=== PATIENT | female | born 1970 | race Caucasian/White ===

== ENCOUNTER 2019-02-16 09:14 | Day surgery (SDC) | payer OTHER ==
[~2019-02-16 09:14] MED LIST: DEXAMETHASONE SOD PHOSPHATE 10 MG/ML 1 ML VIAL IV ONE; HEPARIN SODIUM,PORCINE 5,000 UNIT/ML 1 ML VIAL SQ ONE; LIDOCAINE 1% 20 ML VIAL (10MG/ML) FOR IV START INTRADERMA PRN; ONDANSETRON 4 MG/2 ML VIAL IVP ONE; Pre Op ABX Message 1 EACH MISC MISCELLANE ONE; SCOPOLAMINE 1.5MG/72HR PATCH TRANSDERM ONE; fentaNYL (PF) 50 MCG/ML 2 ML AMP IV PRN
[2019-02-16 09:41] VITALS: RESP 16; TEMP 97.2
[2019-02-16] MEDS: LACTATED RINGERS 1,000 ML IV SCH ×2 (09:55→10:29)
--- NOTE | 2019-02-16 10:08 | P.GSHP ---
History of Present Illness H&P Date: 02/16/19 Chief Complaint: Right groin skin lesion This a 48-year-old female has developed a 5 cm ulcerated, fungating right groin skin lesion which appears to have the appearance of a squamous cell carcinoma. Patient rents today for excision. Patient states the mass is grown over the last 3 months. Past Medical History Past Medical History: GERD/Reflux, Osteoarthritis (OA) Additional Past Medical History / Comment(s): IBS, HTN-NO LONGER MEDICATED PER DR. DALAL. INTERSTITIAL CYSTITIS. HIATAL HERNIA. History of Any Multi-Drug Resistant Organisms: None Reported Past Surgical History: Appendectomy, Hysterectomy, Tonsillectomy, Tubal Ligation Additional Past Surgical History / Comment(s): Cystoscopy with Hydrodistension, LYMPH NODES REMOVED RT SIDE NECK Past Anesthesia/Blood Transfusion Reactions: Motion Sickness, Postoperative Nausea & Vomiting (PONV) Additional Past Anesthesia/Blood Transfusion Reaction / Comment(s): ITCHY FROM SOME MEDS, BENADRYL WORKS. Past Psychological History: No Psychological Hx Reported Smoking Status: Former smoker Past Alcohol Use History: Rare Additional Past Alcohol Use History / Comment(s): QUIT SMOKING IN 2015, SMOKED FOR 20 YRS @ 1PPD. Past Drug Use History: Marijuana Additional Drug Use History / Comment(s): CURRENTLY USES MARIJUANA. - Past Family History Mother Family Medical History: No Reported History Medications and Allergies Home Medications Medication Instructions Recorded Confirmed Type Oxzjzfk-Hhzx-Vslo [id number] 1 - 2 tab PO Q6H PRN 02/13/19 02/13/19 History [Excedrin] diphenhydrAMINE [Benadryl] 25 mg PO DAILY PRN 02/13/19 02/16/19 History Allergies Allergy/AdvReac Type Severity Reaction Status Date / Time latex Allergy Rash/Hives Verified 02/16/19 09:32 sulfamethoxazole Allergy Rash/Hives Verified 02/16/19 09:32 [From Bactrim] trimethoprim [From Bactrim] Allergy Rash/Hives Verified 02/16/19 09:32 hydrocodone AdvReac Itching Verified 02/16/19 09:32 Surgical - Exam Vital Signs Temp Pulse Resp BP Pulse Ox 97.2 F L 78 16 120/58 98 02/16/19 09:34 02/16/19 09:34 02/16/19 09:34 02/16/19 09:34 02/16/19 09:34 - General well developed, well nourished, no distress - Eyes PERRL - ENT normal pinna - Respiratory normal expansion - Cardiovascular Rhythm: regular - Abdomen Abdomen: soft, non tender - Integumentary 5 cm right groin skin lesion of the lateral aspect of her Pfannenstiel incision. The mass is fungating and inflamed. It has appearance of a squamous cell carcinoma. Assessment and Plan Plan: Right groin skin lesion. We'll perform excision.
[2019-02-16] MEDS ORDERED: fentaNYL (PF) 50 MCG/ML 2 ML AMP ONE (10:25)
[2019-02-16] MEDS ORDERED: MIDAZOLAM 2 MG/2 ML VIAL ONE (10:25)
[2019-02-16] MEDS ORDERED: PROPOFOL 10 MG/ML 20 ML VIAL IV ONE (10:25)
[2019-02-16] MEDS ORDERED: BUPIVACAIN-EPI 0.5%-1:200,000 30 ML VIAL SQ ONE (10:51)
--- NOTE | 2019-02-16 11:20 | P.OP ---
Date of Procedure: 02/16/19 Preoperative Diagnosis: Right groin skin lesion Postoperative Diagnosis: Right groin skin lesion Procedure(s) Performed: Excision of right groin skin lesion Anesthesia: MAC Surgeon: Deven Munson Estimated Blood Loss (ml): 5 Pathology: other (Right groin skin lesion) Condition: stable Disposition: PACU Description of Procedure: The patient's placed on the operative table in the supine position. She received IV sedation. The right groin skin lesion measured approximately 5 cm diameter. The area was anesthetized 1% local Xylocaine. An elliptical skin incision was made around the skin lesion. Clear margin was maintained. His left cautery the subcutaneous tissue divided. The skin was then closed in 2 layers using 3-0 Monocryl and 3-0 Vicryl suture. Dermabond dressings was applied. Patient top she will was sent to recovery room stable condition.
[2019-02-16 11:50] VITALS: BP 105/58; PULSE 55
== END 2019-02-16 12:00 | disposition home or self-care (01) ==
LOC: OR 09:14
PROVIDERS: ATTEND Surgery
DX: C44.529 Squamous cell carcinoma of skin of other part of trunk (principal); K21.9 Gastro-esophageal reflux disease without esophagitis; K44.9 Diaphragmatic hernia without obstruction or gangrene; M19.90 Unspecified osteoarthritis, unspecified site; Z87.891 Personal history of nicotine dependence; Z88.1 Allergy status to other antibiotic agents; Z88.2 Allergy status to sulfonamides; Z88.5 Allergy status to narcotic agent; Z79.82 Long term (current) use of aspirin; Z79.899 Other long term (current) drug therapy; Z91.040 Latex allergy status
CPT/HCPCS: 88305; 11606; 12032; J2250; J1644; J1100; J2405; J3010; J2704

== ENCOUNTER 2019-02-22 13:24 | Emergency (ER) | payer OTHER ==
[2019-02-22 13:43] VITALS: BP 145/81; PULSE 80; RESP 16; TEMP 98.2
--- NOTE | 2019-02-22 13:56 | ED ---
General Adult HPI - General Chief complaint: Skin/Abscess/Foreign Body Stated complaint: Abdominal incision pain Time Seen by Provider: 02/22/19 13:45 Source: patient Mode of arrival: ambulatory Limitations: no limitations - History of Present Illness Initial comments: Dictation was produced using [employer] dictation software. please excuse any grammatical, word or spelling errors. Chief Complaint: 48-year-old male presents at surgical site pain. History of Present Illness: A 48-year-old female she had recent skin tumor e xcision performed 5 days ago. The surgeon that did the procedures Dr. Krishnamurthy. Patient states that over the last 2-3 days she's been having burning and pain at the incisional site. Patient states that burning and pain has been present even prior to the procedure. She called the office and was told to come to the emergency department given that the primary surgeon was not taking calls at this time. Patient denies any constitutional symptoms. Patient states his been mild oozing. Patient has a appointment with general surgeon on Saturday. The ROS documented in this emergency department record has been reviewed and confirmed by me. Those systems with pertinent positive or negative responses have been documented in the HPI. All other systems are other negative and/or noncontributory. PHYSICAL EXAM: General Impression: Alert and oriented x3, not in acute distress HEENT: Normocephalic atraumatic, extra-ocular movements intact, pupils equal and reactive to light bilaterally, mucous membranes moist. Cardiovascular: Heart regular rate and rhythm, S1&S2 audible, no murmurs, rubs or gallops Chest: Lungs clear to auscultation bilaterally, no rhonchi, no wheeze, no rales Abdomen: Bowel sounds present, abdomen soft, non-tender, non-distended, no organomegaly Musculoskeletal: Pulses present and equal in all extremities, no peripheral edema Motor: no focal deficits noted Neurological: CN II-XII grossly intact, no focal motor or sensory deficits noted Skin: 6 cm incision clean dry intact with mild erythema. There is no significant drainage noted from the surgical site. Psych: Normal affect and mood ED course: 48-year-old female presents with surgical site pain. Patient's clinical presentation is suspicious for infection. Patient given prescription for Keflex and pain medications. Patient states she will follow-up with her primary care physician for outpatient management of surgical site pain. Patient understandable agreeable to disposition. Patient clear for discharge. Vitals upon arrival are within acceptable limits. Return parameters discussed. - Related Data Home Medications Medication Instructions Recorded Confirmed Ibuprofen [Motrin Ib] 800 mg PO Q6H PRN 02/22/19 02/22/19 Solifenacin Succinate [Vesicare] 5 mg PO DAILY 02/22/19 02/22/19 Previous Rx's Medication Instructions Recorded Cephalexin [Keflex] 500 mg PO Q6HR 5 Days #20 cap 02/22/19 oxyCODONE HCL/ACETAMINOPHEN 1 tab PO Q6HR PRN 3 Days #12 tab 02/22/19 [Percocet 5-325 mg] Allergies Allergy/AdvReac Type Severity Reaction Status Date / Time latex Allergy Rash/Hives Verified 02/22/19 13:43 sulfamethoxazole Allergy Rash/Hives Verified 02/22/19 13:43 [From Bactrim] trimethoprim [From Bactrim] Allergy Rash/Hives Verified 02/22/19 13:43 hydrocodone AdvReac Itching Verified 02/22/19 13:43 Review of Systems ROS Statement: Those systems with pertinent positive or pertinent negative responses have been documented in the HPI. ROS Other: All systems not noted in ROS Statement are negative. Past Medical History Past Medical History: GERD/Reflux, Osteoarthritis (OA) Additional Past Medical History / Comment(s): IBS, HTN INTERSTITIAL CYSTITIS. HIATAL HERNIA. History of Any Multi-Drug Resistant Organisms: None Reported Past Surgical History: Appendectomy, Hysterectomy, Tonsillectomy, Tubal Ligation Additional Past Surgical History / Comment(s): Cystoscopy with Hydrodistension, LYMPH NODES REMOVED RT SIDE NECK, left groin caa removal Past Anesthesia/Blood Transfusion Reactions: Motion Sickness, Postoperative Nausea & Vomiting (PONV) Additional Past Anesthesia/Blood Transfusion Reaction / Comment(s): ITCHY FROM SOME MEDS, BENADRYL WORKS. Past Psychological History: No Psychological Hx Reported Smoking Status: Current every day smoker Past Alcohol Use History: Rare Past Drug Use History: Marijuana - Past Family History Mother Family Medical History: No Reported History General Exam Limitations: no limitations Course Vital Signs 02/22/19 13:38 Temperature 98.2 F Pulse Rate 80 Respiratory 16 Rate Blood Pressure 145/81 O2 Sat by Pulse 99 Oximetry Disposition Clinical Impression: Pain at surgical site Disposition: HOME SELF-CARE Condition: Good Instructions (If sedation given, give patient instructions): Cellulitis (ED) Prescriptions: Cephalexin [Keflex] 500 mg PO Q6HR 5 Days #20 cap oxyCODONE HCL/ACETAMINOPHEN [Percocet 5-325 mg] 1 tab PO Q6HR PRN 3 Days #12 tab PRN Reason: Pain Is patient prescribed a controlled substance at d/c from ED?: Yes If prescribed controlled substance>3 days was MAPS reviewed?: Prescribed <3 Days Referrals: Deven Munson MD [STAFF PHYSICIAN] - 1-2 days Time of Disposition: 13:56
== END 2019-02-22 14:16 | disposition home or self-care (01) ==
LOC: EC 13:24
DX: R10.9 Unspecified abdominal pain (principal); L53.9 Erythematous condition, unspecified; F17.200 Nicotine dependence, unspecified, uncomplicated; Z88.2 Allergy status to sulfonamides; Z88.5 Allergy status to narcotic agent; Z91.040 Latex allergy status; Z79.899 Other long term (current) drug therapy; Z90.49 Acquired absence of other specified parts of digestive tract; Z98.890 Other specified postprocedural states
CPT/HCPCS: 99283

== ENCOUNTER → 2019-02-27 | Outpatient (CLI) | payer OTHER ==
--- NOTE | 2019-02-28 13:02 | CT ---
EXAMINATION TYPE: CT abdomen pelvis w con DATE OF EXAM: 02/27/2019 COMPARISON: 05/17/2014 INDICATION: Hematuria and post op redness after skin cancer removal of right inguinal area. DLP: 966 mGycm, Automated exposure control for dose reduction was used. CONTRAST: 100ml mL of Isovue 300. Study performed with Oral Contrast TECHNIQUE: Axial images were obtained from above the diaphragm to the pubic rami in the axial plane a t 5 mm thick sections. Reconstructed images are reviewed on the computer in the coronal plane. FINDINGS: Limited CT sections are obtained the lung bases. The lung bases are clear. There is a 4.3 x 2.5 cm hypodense area adjacent to the right heart border and inferior vena cava. Pericardial cyst could be c onsidered. This appears larger than the comparison 2013. CT ABDOMEN: Liver: There is a 0.8 cm hypodensity posterior left lobe liver may be a hepatic cyst. Spleen: Normal Pancreas: Normal Adrenal glands: The adrenal glands are normal. Gallbladder: Normal Kidneys: No masses are evident. No hydronephrosis is present. No cysts are present. Delayed images were obtained through the kidneys, which remain unremarkable. Aorta: Vascular calcification is within the aorta. Inferior vena cava: Normal. CT PELVIS: Within the right inguinal region at the previous skin excision there is a subcutaneous col lection which appears low-density fairly well-circumscribed measuring 1.8 x 6.7 cm. Findings could b e underlying seroma. Inflammatory changes are only mildly present which could be postsurgical in natu re. Abscess formation potentially is within the differential. Loops of bowel within the abdomen and pelvis are normal. There are loops of bowel which are incom pletely distended or lack oral contrast limiting their evaluation. Fecal debris is within the distal colon. Appendix: Normal as visualized. Urinary bladder: Normal. Genitourinary structures: Osseous structures: No suspicious lytic or sclerotic lesions. IMPRESSIONS: 1. There is a low-density collection under the subcutaneous tissues in the right inguinal region of the previous surgery site. Seroma and abscess are within the differential. 2. Diverticulosis without acute diverticulitis. 3. Suspected pericardial cyst. This however is an interval development from 05/17/2014. Consider addit ional workup
== END | disposition home or self-care (01) ==
LOC: RADCTMAIN 15:43
PROVIDERS: ATTEND Urology
DX: K57.90 Diverticulosis of intestine, part unspecified, without perforation or abscess without bleeding (principal); R31.9 Hematuria, unspecified; Z88.2 Allergy status to sulfonamides; Z98.890 Other specified postprocedural states
CPT/HCPCS: 74177; Q9967

== ENCOUNTER → 2019-03-19 | Day surgery (SDC) | payer OTHER ==
[2019-03-13 16:19] VITALS: BMI 23.0
[~2019-03-19] MED LIST changes: -DEXAMETHASONE SOD PHOSPHATE 10 MG/ML 1 ML VIAL IV ONE; -HEPARIN SODIUM,PORCINE 5,000 UNIT/ML 1 ML VIAL SQ ONE; +IV FLUID CONTINUATION 1,000 ML IV ONE; -LIDOCAINE 1% 20 ML VIAL (10MG/ML) FOR IV START INTRADERMA PRN; +LIDOCAINE 1% INJ 10MG/ML (20 ML MDV) ONE; -ONDANSETRON 4 MG/2 ML VIAL IVP ONE; +PROPOFOL 10 MG/ML 20 ML VIAL IV ONE; -Pre Op ABX Message 1 EACH MISC MISCELLANE ONE; -SCOPOLAMINE 1.5MG/72HR PATCH TRANSDERM ONE; -fentaNYL (PF) 50 MCG/ML 2 ML AMP IV PRN
[2019-03-19] MEDS: LACTATED RINGERS 1,000 ML IV SCH ×2 (12:30→13:17)
[2019-03-19 12:31] VITALS: TEMP 98.6
[2019-03-19 14:06] VITALS: RESP 16
--- NOTE | 2019-03-19 14:43 | P.PCN ---
Date of Procedure: 03/19/19 Procedure(s) Performed: Procedure: 1. Esophagogastroduodenoscopy and biopsy. 2. Attempted colonoscopy. Preoperative diagnosis: Change in bowel habits, history of polyps as well as nausea and vomiting. Postoperative diagnosis: 1. Sliding hiatal hernia with no obvious esophagitis or complicated reflux disease. 2. Mild antral gastritis. 3. Colonoscopy attempted using both adult and pediatric colonoscopes with inability to pass either endoscope safely in the distal sigmoid. Preparation: HalfLytely prep. Sedation: Was provided by anesthesia. Brief clinical history: The patient is a 48-year-old female who was evaluated in the office in January and scheduled for this evaluation because of history of hiatal hernia and gastroesophageal reflux as well as nausea and vomiting in addition to change in bowel habits and history of irritable bowel syndrome and history of polyps. Her last evaluations with me were 5 years ago. Procedure: With the patient on her left lateral decubitus position and after informed consent and adequate sedation, I passed the Olympus-[employer] H190 video upper endoscope through the cricopharyngeus down the esophagus. GE junction was around 36 cm from the incisors and there was a small sliding hiatal hernia with no obvious esophagitis or complicated reflux disease. The endoscope was then passed into the stomach which was insufflated with air and inspected in detail including the retroflex view in the cardia. There was some mottling and erythema in the antrum but no ulcers or erosions. Pyloric channel, duodenal bulb, post bulbar area and descending duodenum appeared within normal limits. I obtained biopsies from the duodenum, antrum and esophagus then the endoscope was withdrawn and I proceeded to perform the colonoscopy. Perianal area was inspected and it did not show any fissures or fistulas. There were no masses felt on digital rectal examination. The Olympus Q180 AL video colonoscope was initially inserted in the rectum and I was not able to pass it safely into distal sigmoid. I exchanged it for the [employer] Q180 AL pediatric colonoscope and I was not able to pass the scope safely either. In the distal sigmoid and rectum there were no abnormalities noted. It is possible that adhesions in the pelvis could have made it not safe to advance the endoscope but there were no obvious inflammation or strictures. The patient tolerated the procedure well. Plan: I summarized the findings to the patient. Will await biopsy results. I anticipate considering CT colonography for further workup. She will follow-up in the office and we will keep you updated on her progress.
[2019-03-19 14:57] VITALS: BP 128/78; PULSE 67
== END ==
LOC: ORWHC2ENDO 11:37
DX: K58.9 Irritable bowel syndrome, unspecified (principal); Z86.010 Personal history of colon polyps; K29.50 Unspecified chronic gastritis without bleeding; K20.9 Esophagitis, unspecified; K44.9 Diaphragmatic hernia without obstruction or gangrene; K21.9 Gastro-esophageal reflux disease without esophagitis; I10 Essential (primary) hypertension; F32.9 Major depressive disorder, single episode, unspecified; Z79.899 Other long term (current) drug therapy; Z91.040 Latex allergy status; Z88.2 Allergy status to sulfonamides; Z91.09 Other allergy status, other than to drugs and biological substances; Z90.710 Acquired absence of both cervix and uterus; Z97.2 Presence of dental prosthetic device (complete) (partial); Z85.828 Personal history of other malignant neoplasm of skin; Z98.51 Tubal ligation status
CPT/HCPCS: 43239; 45378; 88305; J2001; J2704

== ENCOUNTER 2019-04-08 07:28 | Day surgery (SDC) | payer OTHER ==
[2019-04-06 10:01] VITALS: BMI 23.8
--- NOTE | 2019-04-07 21:42 | P.GSHP ---
History of Present Illness H&P Date: 04/07/19 48 yo female who comes for hydro distention She has bladder pain, urgency frequency and hematuria. She failed anticholinergics SHe doesn not have an infection of the urine - Constitutional Constitutional: Denies chills, Denies fever - EENT Eyes: denies blurred vision, denies pain Ears, nose, mouth and throat: Denies headache, Denies sore throat - Cardiovascular Cardiovascular: Denies chest pain, Denies shortness of breath - Respiratory Respiratory: Denies cough, Denies 7 - Gastrointestinal Gastrointestinal: Denies abdominal pain, Denies diarrhea, Denies nausea, Denies vomiting - Genitourinary (Female) Genitourinary: Denies dysuria, Denies hematuria - Genitourinary (Male) Genitourinary: Denies dysuria, Denies hematuria - Musculoskeletal Musculoskeletal: Denies myalgias - Integumentary Integumentary: Denies pruritus, Denies rash - Neurological Neurological: Denies numbness, Denies weakness - Psychiatric Psychiatric: Denies anxiety, Denies depression - Endocrine Endocrine: Denies fatigue, Denies weight change Past Medical History Past Medical History: Cancer, GERD/Reflux, Hypertension, Neurologic Disorder, Osteoarthritis (OA) Additional Past Medical History / Comment(s): SQUAMOUS CARCINOMA ON RT GROIN, IBS, INTERSTITIAL CYSTITIS. HIATAL HERNIA, stiff person syndrome, HEART PALPITATIONS, DIVERTICULITIS PER CT, rt ring finger swelling possible metal allergy ring removed, GASTRITIS History of Any Multi-Drug Resistant Organisms: None Reported Past Surgical History: Appendectomy, Hysterectomy, Tonsillectomy, Tubal Ligation Additional Past Surgical History / Comment(s): Cystoscopy with Hydrodistension, LYMPH NODES REMOVED RT SIDE NECK, squamous cancer removed from RT groin, EGD- 03/19/19, COLONOSCOPY Past Anesthesia/Blood Transfusion Reactions: Motion Sickness, Postoperative Nausea & Vomiting (PONV) Additional Past Anesthesia/Blood Transfusion Reaction / Comment(s): ITCHY FROM SOME ANESTHETIC MEDS, BENADRYL WORKS. Smoking Status: Former smoker - Past Family History Mother Family Medical History: No Reported History Daughter(s) Family Medical History: Blood Disorder Additional Family Medical History / Comment(s): FACTOR ELEVEN Medications and Allergies Home Medications Medication Instructions Recorded Confirmed Type Solifenacin Succinate [Vesicare] 5 mg PO DAILY 02/22/19 04/06/19 History Arnwbsd-Rzxj-Boho [id number] 1 each PO DAILY PRN 03/13/19 04/06/19 History [Excedrin] FLUoxetine HCL [PROzac] 20 mg PO DAILY 03/13/19 04/06/19 History diphenhydrAMINE HCL [Benadryl] 25 mg PO DAILY PRN 03/13/19 04/06/19 History Allergies Allergy/AdvReac Type Severity Reaction Status Date / Time latex Allergy Rash/Hives Verified 04/06/19 09:53 sulfamethoxazole Allergy Rash/Hives Verified 04/06/19 09:53 [From Bactrim] trimethoprim [From Bactrim] Allergy Rash/Hives Verified 04/06/19 09:53 hydrocodone AdvReac Itching Verified 04/06/19 09:53 metal Allergy Swelling Uncoded 04/06/19 09:53 Surgical - Exam - General well developed, well nourished, no distress - Eyes PERRL - ENT no hearing loss - Neck trachea midline - Respiratory normal expansion, normal respiratory effort - Cardiovascular Rhythm: regular - Abdomen Abdomen: soft, non tender Hernia: none - Genitourinary sp hysterectomy normal external genitalia - Integumentary no rash, no growths - Neurologic normal coordination, normal sensation - Musculoskeletal normal gait, normal posture - Psychiatric oriented to time, oriented to person, oriented to place, speech is normal, memory intact Assessment and Plan Assessment: impression: Interstitital cystitis Plan: Cysto with hydrodistention
[~2019-04-08 07:28] MED LIST changes: +DEXAMETHASONE SOD PHOSPHATE 10 MG/ML 1 ML VIAL IV ONE; +HYDROmorphone 0.5 MG/0.5 ML SYRINGE IVP PRN; -IV FLUID CONTINUATION 1,000 ML IV ONE; +LACTATED RINGERS 1,000 ML IV SCH; +LIDOCAINE 1% 20 ML VIAL (10MG/ML) FOR IV START INTRADERMA PRN; -LIDOCAINE 1% INJ 10MG/ML (20 ML MDV) ONE; +MIDAZOLAM 2 MG/2 ML VIAL IV PRN; +ONDANSETRON 4 MG/2 ML VIAL IVP ONE; -PROPOFOL 10 MG/ML 20 ML VIAL IV ONE; +SCOPOLAMINE 1.5MG/72HR PATCH TRANSDERM ONE; +ceFAZolin IN SWFI 2 GM/20 ML SYRINGE IVP ONE
[2019-04-08] MEDS ORDERED: PROPOFOL 10 MG/ML 20 ML VIAL IV ONE (08:20)
[2019-04-08] MEDS ORDERED: MIDAZOLAM 2 MG/2 ML VIAL ONE (08:20)
[2019-04-08] MEDS ORDERED: LIDOCAINE 1% INJ 10MG/ML (20 ML MDV) ONE (08:20)
[2019-04-08] MEDS ORDERED: GLYCOPYRROLATE 0.2 MG/ML 2 ML VIAL ONE (08:20)
[2019-04-08] MEDS ORDERED: fentaNYL (PF) 50 MCG/ML 2 ML AMP ONE (08:20)
[2019-04-08 08:55] VITALS: TEMP 97.3
[2019-04-08 09:08] VITALS: RESP 18
--- NOTE | 2019-04-08 09:10 | P.OP ---
Date of Procedure: 04/08/19 Preoperative Diagnosis: interstitial cystitis Postoperative Diagnosis: same Procedure(s) Performed: cysto with hydrodistention Anesthesia: MARCELO Surgeon: Uriel Weber Pathology: none sent Indications for Procedure: the patient is 48 She has a history of interstitial cystitis SHe is failing anticholinergics She had previous hydrodistention that worked SHe comes for a repeat hydro distention Description of Procedure: The patient is brought to the operating room She is given a successful general mask anesthetic SHe is placed in the lithotomy with a sterile prep and drape Cysto witha 22 fr sheath and foroblique lens is performed The bladder mucosa is of normal appearance without tumor stone or filling defect The bladder is thinned and hypervascular c/w IC The bladder is distendedand there was 1100 ml with post drainage submucosal petechiae I refilled the bladder to 1250 ml the submucosal petechiae were worse. the bladder was drained and the patient was awaked and returned to recovery with out problems She will fu in the office in 1 week
[2019-04-08] MEDS ORDERED: LACTATED RINGERS 1,000 ML IV ONE (09:34)
[2019-04-08 09:58] VITALS: BP 105/66; PULSE 77
== END 2019-04-08 10:14 | disposition home or self-care (01) ==
LOC: OR 07:28
PROVIDERS: ATTEND Urology
DX: N30.11 Interstitial cystitis (chronic) with hematuria (principal); R39.15 Urgency of urination; R35.0 Frequency of micturition; I10 Essential (primary) hypertension; K21.9 Gastro-esophageal reflux disease without esophagitis; K29.70 Gastritis, unspecified, without bleeding; K44.9 Diaphragmatic hernia without obstruction or gangrene; M19.90 Unspecified osteoarthritis, unspecified site; R29.90 Unspecified symptoms and signs involving the nervous system; R00.2 Palpitations; Z87.891 Personal history of nicotine dependence; Z85.828 Personal history of other malignant neoplasm of skin; Z90.710 Acquired absence of both cervix and uterus; Z98.51 Tubal ligation status; Z97.2 Presence of dental prosthetic device (complete) (partial); Z79.82 Long term (current) use of aspirin; Z79.899 Other long term (current) drug therapy; Z91.040 Latex allergy status; Z88.5 Allergy status to narcotic agent; Z88.2 Allergy status to sulfonamides; Z91.09 Other allergy status, other than to drugs and biological substances
CPT/HCPCS: 52260; J2250; J1100; J2405; J2001; J3010; J2704

== ENCOUNTER 2019-05-08 23:35 | Emergency (ER) | payer OTHER ==
[2019-05-08 23:41] VITALS: PULSE 63; RESP 18
[2019-05-08] MEDS ORDERED: diphenhydrAMINE 50 MG/ML 1 ML VIAL IVP STA (23:55)
[2019-05-08] MEDS ORDERED: METOCLOPRAMIDE 5 MG/ML 2 ML VIAL IVP STA (23:55)
[2019-05-08] MEDS ORDERED: MORPHINE SULFATE 4 MG/ML SYRINGE IV STA (23:55)
[2019-05-08] MEDS ORDERED: SODIUM CHLORIDE 0.9% 1,000 ML IV STA (23:55)
[2019-05-09 00:11] LABS: Basophils # (A) 0.1 k/uL (0-0.2); Basophils % (A) 1 %; Eosinophils # (A) 0.1 k/uL (0-0.7); Eosinophils % (A) 1 %; HCT 48.9 % (34.0-46.0); Lymphocytes # (A) 1.8 k/uL (1.0-4.8); Lymphocytes % (A) 19 %; MCH 31.1 pg (25.0-35.0); MCHC 32.7 g/dL (31.0-37.0); Monocytes # (A) 0.4 k/uL (0-1.0); Monocytes % (A) 4 %; Neutrophils # (A) 7.5 k/uL (1.3-7.7); Neutrophils % (A) 75 %; Platelet Count 292 k/uL (150-450); RBC 5.15 m/uL (3.80-5.40); RDW 14.8 % (11.5-15.5); WBC 9.9 k/uL (3.8-10.6)
[2019-05-09 00:21] LABS: Prothrombin Time 10.4 sec (9.0-12.0)
[2019-05-09 00:28] LABS: ALT 18 U/L (9-52); AST 23 U/L (14-36); African American GFR (CKD) >90 (>60 ml/min/1.73 sqM); Albumin 4.8 g/dL (3.5-5.0); Alkaline Phosphatase 90 U/L (38-126); Anion Gap 12 mmol/L; Blood Urea Nitrogen 14 mg/dL (7-17); Carbon Dioxide 23 mmol/L (22-30); Chloride 105 mmol/L (98-107); Glucose 123 mg/dL (74-99); Potassium 4.1 mmol/L (3.5-5.1); Sodium 140 mmol/L (137-145); Total Bilirubin 0.6 mg/dL (0.2-1.3); Total Protein 7.9 g/dL (6.3-8.2)
[2019-05-09] MEDS ORDERED: SODIUM CHLORIDE 0.9% 1,000 ML IV ONE (00:32)
--- NOTE | 2019-05-09 00:50 | CT ---
EXAM: CT Abdomen and Pelvis With Intravenous Contrast CLINICAL HISTORY: Abdominal pain TECHNIQUE: Axial computed tomography images of the abdomen and pelvis with intravenous contrast. CTDI is 0.085, 0.085, 7.1, 6.7 mGy and DLP is 679. 7 mGy-cm. This CT exam was performed using one or more of the following dose reduction techniques: automated exposure control, adjustment of the mA and/or kV according to patient size, and/or use of iterative reconstruction technique. COMPARISON: CT abdomen and pelvis dated 02/27/2019 FINDINGS: Lung bases: Unremarkable. No mass. No consolidation. ABDOMEN: Liver: Unremarkable. Gallbladder and bile ducts: Unremarkable. Pancreas: Unremarkable. Spleen: Unremarkable. Adrenals: Unremarkable. Kidneys and ureters: Nonobstructing calculus within the left kidney. Stomach and bowel: Mild wall thickening of the small bowel seen within the deep pelvis which may represent nonspecific enteritis. PELVIS: Appendix: The appendix is not visualized. Bladder: Circumferential thickening, likely secondary to under distention.. Reproductive: Uterus is surgically absent. ABDOMEN and PELVIS: Intraperitoneal space: Small amount of free fluid in the pelvis. Bones/joints: No acute fracture. No dislocation. Soft tissues: Unremarkable. Vasculature: Unremarkable. No abdominal aortic aneurysm. Lymph nodes: Unremarkable. IMPRESSION: 1. Mild wall thickening of the small bowel within the deep pelvis which may represent a nonspecific enteritis. 2. Nonobstructing calculus within the left kidney.
[2019-05-09] MEDS ORDERED: ONDANSETRON 4 MG ODT STARTER PACK 2 TAB BTL PO STA (01:14)
--- NOTE | 2019-05-09 01:16 | ED ---
Abdominal Pain HPI - General Chief Complaint: Abdominal Pain Stated Complaint: Abdominal Pain Time Seen by Provider: 05/08/19 23:40 Source: patient, family Mode of arrival: ambulatory Limitations: no limitations - History of Present Illness Initial Comments: The patient is a 48-year-old female presents emergency room with reported abdominal pain and nausea. She reports a periumbilical pain that is sharp and stabbing in nature. It does not radiate. It was sudden onset 3 hours prior to arrival. She denies a history of similar in the past. She does report a large GI history. States that she is currently seeing a specialist out of [facility]. Admits to a hiatal hernia, gastritis and colitis. She is scheduled next week to have an MRI of her abdomen. She admits significant nausea with multiple episodes of dry heaving. States she hasn't eaten anything today. Has not taken anything for the pain. She denies hematemesis. Denies melanotic stools or hematochezia. Denies constipation or diarrhea. Denies any abnormal vaginal bleeding or discharge. No changes in her urination to include dysuria, hematuria or difficulty voiding. No ripping or tearing sensation to her back. Denies any chest breath. There are no alleviating, precipitating or modifying factors - Related Data Home Medications Medication Instructions Recorded Confirmed Famotidine 40 mg PO DAILY 05/09/19 05/09/19 Previous Rx's Medication Instructions Recorded Ondansetron Odt [Zofran Odt] 4 mg PO Q8HR PRN #15 tab 05/09/19 Allergies Allergy/AdvReac Type Severity Reaction Status Date / Time latex Allergy Rash/Hives Verified 05/09/19 17:31 sulfamethoxazole Allergy Rash/Hives Verified 05/09/19 17:31 [From Bactrim] trimethoprim [From Bactrim] Allergy Rash/Hives Verified 05/09/19 17:31 hydrocodone AdvReac Itching Verified 05/09/19 17:31 metal Allergy Swelling Uncoded 05/09/19 17:23 Review of Systems ROS Statement: Those systems with pertinent positive or pertinent negative responses have been documented in the HPI. ROS Other: All systems not noted in ROS Statement are negative. Past Medical History Past Medical History: Cancer, GERD/Reflux, Hypertension, Neurologic Disorder, Osteoarthritis (OA) Additional Past Medical History / Comment(s): IBS, INTERSTITIAL CYSTITIS. 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 Past Psychological History: Anxiety Smoking Status: Former smoker Past Alcohol Use History: Unable to Obtain Past Drug Use History: Unable to Obtain - Past Family History Mother Family Medical History: No Reported History Daughter(s) Family Medical History: Blood Disorder Additional Family Medical History / Comment(s): FACTOR ELEVEN General Exam Limitations: no limitations General appearance: alert, anxious Head exam: Present: atraumatic, normocephalic, normal inspection Eye exam: Present: normal appearance, PERRL, EOMI. Absent: scleral icterus, conjunctival injection, periorbital swelling ENT exam: Present: normal exam, mucous membranes dry Neck exam: Present: normal inspection. Absent: tenderness, meningismus, lymphadenopathy Respiratory exam: Present: normal lung sounds bilaterally. Absent: respiratory distress, wheezes, rales, rhonchi, stridor Cardiovascular Exam: Present: regular rate, normal rhythm, normal heart sounds. Absent: systolic murmur, diastolic murmur, rubs, gallop, clicks GI/Abdominal exam: Present: soft, tenderness, normal bowel sounds. Absent: distended, guarding, rebound, rigid, organomegaly (the patient has tenderness to her entire abdomen. No peritoneal signs. No flank or periumbilical ecchymosis) Extremities exam: Present: normal inspection, full ROM, normal capillary refill. Absent: tenderness, pedal edema, joint swelling, calf tenderness Back exam: Present: normal inspection Neurological exam: Present: alert, oriented X3, CN II-XII intact Psychiatric exam: Present: normal affect, normal mood Skin exam: Present: warm, intact, normal color, diaphoretic. Absent: rash Course Vital Signs 05/08/19 05/09/19 23:38 01:22 Temperature 97.9 F 97.8 F Pulse Rate 63 63 Respiratory 18 18 Rate Blood Pressure 131/70 122/83 O2 Sat by Pulse 100 100 Oximetry Procedures - [place] Protocol (Time Out) Nurse: Henny Camp Medical Decision Making - Medical Decision Making Upon arrival the patient is placed in room 4. She is hooked up to continuous pulse ox and cardiac monitoring. Peripheral IV is established. Patient is given 4 mg of Zofran for nausea. She is also given 4 mg of morphine for pain and 25 mg of Benadryl she does report to ALLERGY side effects with the morphine. She is writhing in the cart in pain upon arrival. She is diaphoretic. I did recommend laboratory studies, urinalysis and a CT of the patient's abdomen and pelvis. Upon return of the results the patient's is reevaluated and and is sitting upright in bed. She feels improved at this time. She's had no further episodes of vomiting within the ER. Serial abdominal exams were performed and demonstrated no peritoneal signs. The patient states that she no longer feels nausea and has no pain. She states she would like to go home as she feels better. She'll be given a Zofran starter pack. She will be given a prescription for Zofran as well. She is to follow-up with her specialist at [facility] to obain her 3D imaging. If she has any new or worsening symptoms, she should return to the ER. Patient was in agreement with the treatment plan and discharge home in stable condition - Lab Data Result diagrams: 05/08/19 23:55 05/08/19 23:55 Lab Results 05/08/19 05/08/19 05/08/19 Range/Units 23:55 23:55 23:55 WBC 9.9 (3.8-10.6) k/uL RBC 5.15 (3.80-5.40) m/uL Hgb 16.0 (11.4-16.0) gm/dL Hct 48.9 H (34.0-46.0) % MCV 95.0 (80.0-100.0) fL MCH 31.1 (25.0-35.0) pg MCHC 32.7 (31.0-37.0) g/dL RDW 14.8 (11.5-15.5) % Plt Count 292 (150-450) k/uL Neutrophils % 75 % Lymphocytes % 19 % Monocytes % 4 % Eosinophils % 1 % Basophils % 1 % Neutrophils # 7.5 (1.3-7.7) k/uL Lymphocytes # 1.8 (1.0-4.8) k/uL Monocytes # 0.4 (0-1.0) k/uL Eosinophils # 0.1 (0-0.7) k/uL Basophils # 0.1 (0-0.2) k/uL PT (9.0-12.0) sec INR (<1.2) Sodium 140 (137-145) mmol/L Potassium 4.1 (3.5-5.1) mmol/L Chloride 105 (98-107) mmol/L Carbon Dioxide 23 (22-30) mmol/L Anion Gap 12 mmol/L BUN 14 (7-17) mg/dL Creatinine 0.62 (0.52-1.04) mg/dL Est GFR (CKD-EPI)AfAm >90 (>60 ml/min/1.73 sqM) Est GFR (CKD-EPI)NonAf >90 (>60 ml/min/1.73 sqM) Glucose 123 H (74-99) mg/dL Lactic Ac Sepsis Rflx Plasma Lactic Acid Daniel 2.8 H* (0.7-2.0) mmol/L Calcium 10.0 (8.4-10.2) mg/dL Total Bilirubin 0.6 (0.2-1.3) mg/dL AST 23 (14-36) U/L ALT 18 (9-52) U/L Alkaline Phosphatase 90 (38-126) U/L Total Protein 7.9 (6.3-8.2) g/dL Albumin 4.8 (3.5-5.0) g/dL Lipase 54 (23-300) U/L Urine Color Urine Appearance (Clear) Urine pH (5.0-8.0) Ur Specific Mart (1.001-1.035) Urine Protein (Negative) Urine Glucose (UA) (Negative) Urine Ketones (Negative) Urine Blood (Negative) Urine Nitrite (Negative) Urine Bilirubin (Negative) Urine Urobilinogen (<2.0) mg/dL Ur Leukocyte Esterase (Negative) Urine RBC (0-5) /hpf Urine WBC (0-5) /hpf Ur Squamous Epith Cells (0-4) /hpf 05/08/19 05/09/19 05/09/19 Range/Units 23:55 00:32 01:13 WBC (3.8-10.6) k/uL RBC (3.80-5.40) m/uL Hgb (11.4-16.0) gm/dL Hct (34.0-46.0) % MCV (80.0-100.0) fL MCH (25.0-35.0) pg MCHC (31.0-37.0) g/dL RDW (11.5-15.5) % Plt Count (150-450) k/uL Neutrophils % % Lymphocytes % % Monocytes % % Eosinophils % % Basophils % % Neutrophils # (1.3-7.7) k/uL Lymphocytes # (1.0-4.8) k/uL Monocytes # (0-1.0) k/uL Eosinophils # (0-0.7) k/uL Basophils # (0-0.2) k/uL PT 10.4 (9.0-12.0) sec INR 1.0 (<1.2) Sodium (137-145) mmol/L Potassium (3.5-5.1) mmol/L Chloride (98-107) mmol/L Carbon Dioxide (22-30) mmol/L Anion Gap mmol/L BUN (7-17) mg/dL Creatinine (0.52-1.04) mg/dL Est GFR (CKD-EPI)AfAm (>60 ml/min/1.73 sqM) Est GFR (CKD-EPI)NonAf (>60 ml/min/1.73 sqM) Glucose (74-99) mg/dL Lactic Ac Sepsis Rflx Y Plasma Lactic Acid Daniel (0.7-2.0) mmol/L Calcium (8.4-10.2) mg/dL Total Bilirubin (0.2-1.3) mg/dL AST (14-36) U/L ALT (9-52) U/L Alkaline Phosphatase (38-126) U/L Total Protein (6.3-8.2) g/dL Albumin (3.5-5.0) g/dL Lipase (23-300) U/L Urine Color Yellow Urine Appearance Clear (Clear) Urine pH 8.0 (5.0-8.0) Ur Specific Mart >1.050 H (1.001-1.035) Urine Protein Trace H (Negative) Urine Glucose (UA) Negative (Negative) Urine Ketones 2+ H (Negative) Urine Blood Moderate H (Negative) Urine Nitrite Negative (Negative) Urine Bilirubin Negative (Negative) Urine Urobilinogen <2.0 (<2.0) mg/dL Ur Leukocyte Esterase Negative (Negative) Urine RBC 11 H (0-5) /hpf Urine WBC 3 (0-5) /hpf Ur Squamous Epith Cells 27 H (0-4) /hpf - EKG Data EKG Comments: EKG demonstrates a sinus rhythm with a ventricular rate of 86. [place] interval 128. QRS 74. QTC of 528. QTC does not appear prolonged visually. No ST segment elevations or depressions concerning for ischemia. Disposition Clinical Impression: Abdominal pain Disposition: HOME SELF-CARE Condition: Stable Instructions (If sedation given, give patient instructions): Abdominal Pain (ED) Additional Instructions: Please follow-up with your GI doctor in 2-4 days. Return to the ER for any new or worsening symptoms Prescriptions: Ondansetron Odt [Zofran Odt] 4 mg PO Q8HR PRN #15 tab PRN Reason: Nausea Is patient prescribed a controlled substance at d/c from ED?: No Referrals: Clayton Reid MD [Primary Care Provider] - 1-2 days Time of Disposition: 01:16
[2019-05-09 01:29] VITALS: BP 122/83; TEMP 97.8
[2019-05-09 01:31] LABS: Appearance,Urine Clear (Clear); Bilirubin,Urine Negative (Negative); Blood,Urine Moderate (Negative); Color,Urine Yellow; Glucose,Urine (UA) Negative (Negative); Ketones,Urine 2+ (Negative); Leukocyte Esterase,Urine Negative (Negative); Nitrite,Urine Negative (Negative); Protein,Urine Trace (Negative); RBC,Urine 11 /hpf (0-5); Squamous Epithelial Cell,Urine 27 /hpf (0-4); Urobilinogen,Urine <2.0 mg/dL (<2.0)
[2019-05-09 01:32] LABS: Specific Gravity,Urine >1.050 (1.001-1.035)
== END 2019-05-09 01:24 | disposition home or self-care (01) ==
LOC: EC 23:35
DX: R10.33 Periumbilical pain (principal); R11.0 Nausea; N20.0 Calculus of kidney; I10 Essential (primary) hypertension; F41.9 Anxiety disorder, unspecified; Z79.899 Other long term (current) drug therapy; Z91.040 Latex allergy status; Z88.1 Allergy status to other antibiotic agents; Z88.2 Allergy status to sulfonamides; Z88.5 Allergy status to narcotic agent; Z91.09 Other allergy status, other than to drugs and biological substances; Z90.89 Acquired absence of other organs; Z90.710 Acquired absence of both cervix and uterus
CPT/HCPCS: 36415 ×2; 93005; 80053; 83605; 83690; 85025; 85610; 81001; 74177; 99284; 96374; 96375 ×2; 96361; J2270; J1200; J2765; S0119; Q9967

== ENCOUNTER 2019-05-09 17:05 | Inpatient (IN) | payer OTHER ==
[2019-05-09] MEDS ORDERED: DICYCLOMINE 10 MG/ML 2 ML AMP IM STA (18:14)
[2019-05-09] MEDS ORDERED: FAMOTIDINE 20 MG/2 ML VIAL IV STA (18:14)
[2019-05-09] MEDS ORDERED: ONDANSETRON 4 MG/2 ML VIAL IVP STA (18:14)
[2019-05-09] MEDS ORDERED: SODIUM CHLORIDE 0.9% 1,000 ML IV STA (18:14)
--- NOTE | 2019-05-09 18:16 | ED ---
General Adult HPI - General Chief complaint: Nausea/Vomiting/Diarrhea Stated complaint: abdominal pain/vomiting-revisit Time Seen by Provider: 05/09/19 17:24 Source: patient, RN notes reviewed Mode of arrival: wheelchair Limitations: no limitations - History of Present Illness Initial comments: Patient is a pleasant 48-year-old female presenting to the emergency Department with complaints of nausea and vomiting. Onset of symptoms was a couple of days ago. Patient has not really had much oral intake since that time. Patient was feeling better when she left the emergency department last night. Patient states symptoms started around 11:00 again today. Patient did take one prescription filled that she was provided from here. Patient started vomiting again at 2:00. Patient has continued nausea and abdominal discomfort near the umbilicus. No diarrhea. No fevers. Patient does have a history of irritable bowel syndrome however this does not feel similar. - Related Data Home Medications Medication Instructions Recorded Confirmed Famotidine 40 mg PO DAILY 05/09/19 05/09/19 Previous Rx's Medication Instructions Recorded Ondansetron Odt [Zofran Odt] 4 mg PO Q8HR PRN #15 tab 05/09/19 Allergies Allergy/AdvReac Type Severity Reaction Status Date / Time latex Allergy Rash/Hives Verified 05/09/19 17:31 sulfamethoxazole Allergy Rash/Hives Verified 05/09/19 17:31 [From Bactrim] trimethoprim [From Bactrim] Allergy Rash/Hives Verified 05/09/19 17:31 hydrocodone AdvReac Itching Verified 05/09/19 17:31 metal Allergy Swelling Uncoded 05/09/19 17:23 Review of Systems ROS Statement: Those systems with pertinent positive or pertinent negative responses have been documented in the HPI. ROS Other: All systems not noted in ROS Statement are negative. Constitutional: Denies: fever Eyes: Denies: eye pain ENT: Denies: ear pain Respiratory: Denies: cough Cardiovascular: Denies: chest pain Endocrine: Reports: fatigue Gastrointestinal: Reports: abdominal pain, nausea, vomiting. Denies: diarrhea Genitourinary: Denies: dysuria Musculoskeletal: Denies: back pain Skin: Denies: rash Neurological: Denies: headache Past Medical History Past Medical History: Cancer, GERD/Reflux, Hypertension, Neurologic Disorder, Osteoarthritis (OA) Additional Past Medical History / Comment(s): IBS, INTERSTITIAL CYSTITIS. 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 Past Psychological History: Anxiety Smoking Status: Former smoker Past Alcohol Use History: Unable to Obtain Past Drug Use History: Unable to Obtain - Past Family History Mother Family Medical History: No Reported History Daughter(s) Family Medical History: Blood Disorder Additional Family Medical History / Comment(s): FACTOR ELEVEN General Exam Limitations: no limitations General appearance: alert, in no apparent distress Head exam: Present: atraumatic Eye exam: Present: normal appearance, PERRL ENT exam: Present: normal oropharynx Neck exam: Present: normal inspection Respiratory exam: Present: normal lung sounds bilaterally Cardiovascular Exam: Present: regular rate, normal rhythm Expanded Peripheral pulses: 2+: Dorsalis Pedis (R), Dorsalis Pedis (L) GI/Abdominal exam: Present: soft. Absent: distended, tenderness, guarding, rebound, rigid, pulsatile mass Extremities exam: Present: normal inspection. Absent: pedal edema, calf tenderness Neurological exam: Present: alert Psychiatric exam: Present: normal affect, normal mood Skin exam: Present: normal color Course Vital Signs 05/09/19 05/09/19 17:21 18:39 Temperature 97.8 F Pulse Rate 80 60 Respiratory 16 18 Rate Blood Pressure 117/86 106/83 O2 Sat by Pulse 100 99 Oximetry Medical Decision Making - Medical Decision Making Patient reevaluated and resting in bed. Patient states symptoms have improved somewhat. Case was discussed in detail with Dr. Arreola, covering for Dr. Reid, who will admit. He does recommend consulting transport operations inspector surgical. - Lab Data Result diagrams: 05/09/19 15:25 05/09/19 15:25 Lab Results 05/09/19 05/09/19 05/09/19 Range/Units 15:25 15:25 15:25 WBC 7.4 (3.8-10.6) k/uL RBC 4.67 (3.80-5.40) m/uL Hgb 14.5 (11.4-16.0) gm/dL Hct 44.6 (34.0-46.0) % MCV 95.4 (80.0-100.0) fL MCH 30.9 (25.0-35.0) pg MCHC 32.4 (31.0-37.0) g/dL RDW 15.2 (11.5-15.5) % Plt Count 243 (150-450) k/uL Neutrophils % 76 % Lymphocytes % 17 % Monocytes % 5 % Eosinophils % 1 % Basophils % 1 % Neutrophils # 5.6 (1.3-7.7) k/uL Lymphocytes # 1.2 (1.0-4.8) k/uL Monocytes # 0.4 (0-1.0) k/uL Eosinophils # 0.1 (0-0.7) k/uL Basophils # 0.0 (0-0.2) k/uL PT 10.5 (9.0-12.0) sec INR 1.0 (<1.2) APTT 25.2 (22.0-30.0) sec Sodium 141 (137-145) mmol/L Potassium 3.6 (3.5-5.1) mmol/L Chloride 107 (98-107) mmol/L Carbon Dioxide 22 (22-30) mmol/L Anion Gap 12 mmol/L BUN 12 (7-17) mg/dL Creatinine 0.58 (0.52-1.04) mg/dL Est GFR (CKD-EPI)AfAm >90 (>60 ml/min/1.73 sqM) Est GFR (CKD-EPI)NonAf >90 (>60 ml/min/1.73 sqM) Glucose 100 H (74-99) mg/dL Calcium 9.5 (8.4-10.2) mg/dL Total Bilirubin 0.6 (0.2-1.3) mg/dL AST 20 (14-36) U/L ALT 19 (9-52) U/L Alkaline Phosphatase 66 (38-126) U/L Total Protein 7.0 (6.3-8.2) g/dL Albumin 4.2 (3.5-5.0) g/dL Amylase 38 (30-110) U/L Lipase 36 (23-300) U/L - Radiology Data Radiology results: image reviewed (Abdominal x-ray: Suspect partial mid small bowel obstruction related to focal enteritis.) Disposition Clinical Impression: Partial small bowel obstruction Disposition: ADMITTED IP TO THIS HOSP Is patient prescribed a controlled substance at d/c from ED?: No Referrals: Clayton Reid MD [Primary Care Provider] - 1-2 days Decision Time: 19:29
[2019-05-09 18:37] LABS: Basophils % (A) 1 %; Eosinophils # (A) 0.1 k/uL (0-0.7); Eosinophils % (A) 1 %; HCT 44.6 % (34.0-46.0); HGB 14.5 gm/dL (11.4-16.0); Lymphocytes # (A) 1.2 k/uL (1.0-4.8); Lymphocytes % (A) 17 %; MCH 30.9 pg (25.0-35.0); MCHC 32.4 g/dL (31.0-37.0); MCV 95.4 fL (80.0-100.0); Mean Platelet Volume 8.5; Monocytes # (A) 0.4 k/uL (0-1.0); Monocytes % (A) 5 %; Neutrophils # (A) 5.6 k/uL (1.3-7.7); Neutrophils % (A) 76 %; Platelet Count 243 k/uL (150-450); RBC 4.67 m/uL (3.80-5.40); RDW 15.2 % (11.5-15.5); WBC 7.4 k/uL (3.8-10.6)
[2019-05-09 18:46] LABS: ALT 19 U/L (9-52); AST 20 U/L (14-36); African American GFR (CKD) >90 (>60 ml/min/1.73 sqM); Albumin 4.2 g/dL (3.5-5.0); Alkaline Phosphatase 66 U/L (38-126); Amylase 38 U/L (30-110); Anion Gap 12 mmol/L; Blood Urea Nitrogen 12 mg/dL (7-17); Calcium 9.5 mg/dL (8.4-10.2); Carbon Dioxide 22 mmol/L (22-30); Chloride 107 mmol/L (98-107); Glucose 100 mg/dL (74-99); Potassium 3.6 mmol/L (3.5-5.1); Sodium 141 mmol/L (137-145); Total Bilirubin 0.6 mg/dL (0.2-1.3)
[2019-05-09 18:48] LABS: Partial Thromboplastin Time 25.2 sec (22.0-30.0); Prothrombin Time 10.5 sec (9.0-12.0)
--- NOTE | 2019-05-09 19:03 | XR ---
EXAMINATION TYPE: XR KUB DATE OF EXAM: 05/09/2019 6:51 PM CLINICAL HISTORY: Nausea and vomiting and umbilical pain TECHNIQUE: Two Upright KUB images of the abdomen are obtained. COMPARISON: CT abdomen and pelvis earlier today. FINDINGS: Scattered gas is seen in non-distended stomach and small bowel loops. Air-fluid levels left mid abdominal wall are noted. Gas and fecal material is seen in non-distended colon along the periph leidy. Occasional pelvic phleboliths redemonstrated. No pneumoperitoneum. IMPRESSION: Persistent slightly prominent left mid abdominal small bowel loop with air-fluid level th is was more dilated with fecal filling on recent CT. Suspect partial mid small bowel obstruction rela lois to focal enteritis. Correlate clinically.
[2019-05-09] MEDS ORDERED: NALOXONE 0.4 MG/ML 1 ML VIAL IV PRN (19:29)
[2019-05-09 20:07] LABS: Appearance,Urine Cloudy (Clear); Bilirubin,Urine Negative (Negative); Blood,Urine Moderate (Negative); Calcium Oxalate Crystals,Urine Many /hpf; Color,Urine Yellow; Glucose,Urine (UA) Negative (Negative); Ketones,Urine 2+ (Negative); Leukocyte Esterase,Urine Moderate (Negative); Mucus,Urine Many /hpf; Nitrite,Urine Negative (Negative); PH, Urine 6.5 (5.0-8.0); Protein,Urine 1+ (Negative); RBC,Urine 79 /hpf (0-5); Specific Gravity,Urine 1.032 (1.001-1.035); Squamous Epithelial Cell,Urine 1 /hpf (0-4); WBC,Urine 29 /hpf (0-5)
[2019-05-09 20:50] VITALS: BMI 22.6
[2019-05-09] MEDS: SODIUM CHLORIDE 0.9% 1,000 ML IV SCH (20:55)
[2019-05-09] MEDS: ONDANSETRON 4 MG/2 ML VIAL IVP PRN (23:08)
[2019-05-10] MEDS: SODIUM CHLORIDE 0.9% 1,000 ML IV SCH ×3 (03:58→20:24)
[2019-05-10] MEDS: ONDANSETRON 4 MG/2 ML VIAL IVP PRN (08:01)
[2019-05-10] MEDS ORDERED: PANTOPRAZOLE 40 MG/10 ML VIAL IV SCH (09:00)
--- NOTE | 2019-05-10 09:50 | P.GSCN ---
History of Present Illness Consult date: 05/10/19 Reason for Consult: Partial small bowel obstruction History of present illness: This a 48-year-old female who was admitted through the emergency room with complaints of some abdominal pain and bloating and nausea. Her x-rays showed a possible partial small bowel obstruction. Patient states that she has had pain for approximately 3 days prior to admission. She describes crampy abdominal pain with nausea. Past Medical History Past Medical History: Cancer, GERD/Reflux, Hypertension, Neurologic Disorder, Osteoarthritis (OA) Additional Past Medical History / Comment(s): IBS, INTERSTITIAL CYSTITIS. HIATAL HERNIA,stiff person syndrome, HEART PALPITATIONS, DIVERTICULITIS PER CT, rt ring finger swelling possible metal allergy ring removed, skin cancer removed right side groin February 2019 History of Any Multi-Drug Resistant Organisms: None Reported Past Surgical History: Appendectomy, Hysterectomy, Tonsillectomy, Tubal Ligation Additional Past Surgical History / Comment(s): Cystoscopy with Hydrodistension, LYMPH NODES REMOVED RT SIDE NECK Past Anesthesia/Blood Transfusion Reactions: Motion Sickness, Postoperative Nausea & Vomiting (PONV) Additional Past Anesthesia/Blood Transfusion Reaction / Comm: ITCHY FROM SOME ANESTHETIC MEDS, [email or web address]. Past Psychological History: Anxiety Smoking Status: Former smoker Past Alcohol Use History: Unable to Obtain Additional Past Alcohol Use History / Comment(s): QUIT SMOKING IN 2018, SMOKED FOR 20 YRS @ 1PPD. Past Drug Use History: Unable to Obtain Additional Drug Use History / Comment(s): CURRENTLY USES MARIJUANA. - Past Family History Mother Family Medical History: No Reported History Daughter(s) Family Medical History: Blood Disorder Additional Family Medical History / Comment(s): FACTOR ELEVEN Medications and Allergies Home Medications Medication Instructions Recorded Confirmed Type Famotidine 40 mg PO DAILY 05/09/19 05/09/19 History Ondansetron Odt [Zofran Odt] 4 mg PO Q8HR PRN #15 tab 05/09/19 05/09/19 Rx Allergies Allergy/AdvReac Type Severity Reaction Status Date / Time latex Allergy Rash/Hives Verified 05/09/19 17:31 sulfamethoxazole Allergy Rash/Hives Verified 05/09/19 17:31 [From Bactrim] trimethoprim [From Bactrim] Allergy Rash/Hives Verified 05/09/19 17:31 hydrocodone AdvReac Itching Verified 05/09/19 17:31 metal Allergy Swelling Uncoded 05/09/19 17:23 Surgical - Exam Vital Signs Temp Pulse Resp BP Pulse Ox 97.8 F 80 16 117/86 100 05/09/19 17:21 05/09/19 17:21 05/09/19 17:21 05/09/19 17:21 05/09/19 17:21 - General well developed, well nourished, no distress - Eyes PERRL - ENT normal pinna - Neck no masses - Respiratory normal expansion - Cardiovascular Rhythm: regular - Abdomen Mild diffuse tenderness Abdomen: soft Results - Labs 05/09/19 15:25 05/09/19 15:25 Abnormal Lab Results - Last 24 Hours (Table) 05/09/19 05/09/19 Range/Units 15:25 19:55 Glucose 100 H (74-99) mg/dL Urine Appearance Cloudy H (Clear) Urine Protein 1+ H (Negative) Urine Ketones 2+ H (Negative) Urine Blood Moderate H (Negative) Ur Leukocyte Esterase Moderate H (Negative) Urine RBC 79 H (0-5) /hpf Urine WBC 29 H (0-5) /hpf Calcium Oxalate Crystal Many H (None) /hpf Urine Mucus Many H (None) /hpf Diabetes panel 05/09/19 Range/Units 15:25 Sodium 141 (137-145) mmol/L Potassium 3.6 (3.5-5.1) mmol/L Chloride 107 (98-107) mmol/L Carbon Dioxide 22 (22-30) mmol/L BUN 12 (7-17) mg/dL Creatinine 0.58 (0.52-1.04) mg/dL Glucose 100 H (74-99) mg/dL Calcium 9.5 (8.4-10.2) mg/dL AST 20 (14-36) U/L ALT 19 (9-52) U/L Alkaline Phosphatase 66 (38-126) U/L Total Protein 7.0 (6.3-8.2) g/dL Albumin 4.2 (3.5-5.0) g/dL Calcium panel 05/09/19 Range/Units 15:25 Calcium 9.5 (8.4-10.2) mg/dL Albumin 4.2 (3.5-5.0) g/dL Pituitary panel 05/09/19 Range/Units 15:25 Sodium 141 (137-145) mmol/L Potassium 3.6 (3.5-5.1) mmol/L Chloride 107 (98-107) mmol/L Carbon Dioxide 22 (22-30) mmol/L BUN 12 (7-17) mg/dL Creatinine 0.58 (0.52-1.04) mg/dL Glucose 100 H (74-99) mg/dL Calcium 9.5 (8.4-10.2) mg/dL Adrenal panel 05/09/19 Range/Units 15:25 Sodium 141 (137-145) mmol/L Potassium 3.6 (3.5-5.1) mmol/L Chloride 107 (98-107) mmol/L Carbon Dioxide 22 (22-30) mmol/L BUN 12 (7-17) mg/dL Creatinine 0.58 (0.52-1.04) mg/dL Glucose 100 H (74-99) mg/dL Calcium 9.5 (8.4-10.2) mg/dL Total Bilirubin 0.6 (0.2-1.3) mg/dL AST 20 (14-36) U/L ALT 19 (9-52) U/L Alkaline Phosphatase 66 (38-126) U/L Total Protein 7.0 (6.3-8.2) g/dL Albumin 4.2 (3.5-5.0) g/dL Assessment and Plan Assessment: Partial small bowel obstruction. Patient will remain nothing by mouth. If she does not improve she'll have a CAT scan with oral contrast in the a.m.
--- NOTE | 2019-05-10 13:37 | P.HPIM ---
History of Present Illness H&P Date: 05/10/19 Chief Complaint: Abdominal pain and vomiting History of presenting complaint: This is a pleasant 48-year-old patient of Dr. Jackson. Chronic stable medical conditions include GERD, hypertension, irritable bowel syndrome, interstitial cystitis, hiatal hernia, gastritis. Patient was being worked up by music store manager late Dr. Castro. Patient had just gotten approved to have a 3-D imaging done at [facility] in [place]. Last few weeks patient been having small size bowel movements. Patient 2 days ago started of with increasing abdominal upper abdominal pain with several bouts of vomiting and presented to ER. Computed tomography scan of the abdomen showed some mild wall thickening of the small bowel and nonobstructing calculus within the left kidney. Patient is felt to food poisoning and discharged home. Patient continued to have further vomiting and decided to come back to the ER. Bit more vomiting. There is a question about enteritis and possible small bowel obstruction/ileus. Patient was made nothing by mouth and admitted. Since admission no further vomiting but nausea is present. Patient has received medications. Last bowel movement was 2 days ago. As a rule patient's bowel movement normally varies. General surgery was consulted. No fever no chills. Overall feels a bit better but abdominal pain is still present. Lateral is also better. Review of systems: GEN.: Tired EYES: None HEENT: None NECK: None RESPIRATORY: Wheezing shortness of breath cough intubated CARDIOVASCULAR: None GASTROINTESTINAL: As above GENITOURINARY: None MUSCULOSKELETAL: None LYMPHATICS: None HEMATOLOGICAL: None PSYCHIATRY: Anxious NEUROLOGICAL: None Past medical history to include: GERD, hypertension, irritable bowel syndrome, interstitial cystitis, hiatal hernia, gastritis. Social history: Smoked a pack a day for 35 years stopped 2 months ago. 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 Family history: Factor XI abnormality Physical examination: VITAL SIGNS: 97.8, 80, 16, 117/86, 100% room air GENERAL: BMI 22.6, sitting up in bed, a bit uncomfortable anxious. EYES: Pupils equal. Conjunctiva normal. HEENT: External appearance of nose and ears normal, oral cavity grossly normal. NECK: JVD not raised; masses not palpable. HEART: First and second heart sounds are normal; no edema. LUNGS: Respiratory rate increased, diminished breath sounds prolonged expiration and wheezing. ABDOMEN: Soft, diffuse tenderness, no guarding or rigidity, liver spleen not palpable, no masses palpable, bowel sounds present. PSYCH: [Alert and oriented x3; mood and affect anxious l. NEUROLOGICAL: Cranial nerves grossly intact; no facial asymmetry, power and sensation grossly intact. LYMPHATICS: No lymph nodes palpable in the axilla and neck INVESTIGATIONS, reviewed in the clinical context: White count 7.4 hemoglobin 14.5 platelets 243 potassium 3.6 creatinine 0.58 Computed tomography scan of the abdomen results as above from the ER visit on Saturday Abdominal x-ray film personally reviewed by me shows slightly prominent small bowel loops with air-fluid levels Assessment: -Acute enteritis likely viral, leading to its nonmechanical obstruction possibly ileus, POA -COPD in an ex-smoker -GERD -Essential hypertension -Irritable bowel syndrome -Chronic interstitial cystitis -Hiatal hernia -Chronic gastritis Plan: General surgery was consulted. Patient does not seem to have a surgical abdomen. No further vomiting. Could hold off NG tube to the present time. Hydrate the patient. Clear liquids as tolerated. Home medications are to be resumed. Care was discussed at length with the patient. Questions were answered. Lovenox for DVT prophylaxis. Encouraged to be out of bed. Past Medical History Past Medical History: Cancer, GERD/Reflux, Hypertension, Neurologic Disorder, Osteoarthritis (OA) Additional Past Medical History / Comment(s): IBS, INTERSTITIAL CYSTITIS. HIATAL HERNIA,stiff person syndrome, HEART PALPITATIONS, DIVERTICULITIS PER CT, rt ring finger swelling possible metal allergy ring removed, skin cancer removed right side groin February 2019 History of Any Multi-Drug Resistant Organisms: None Reported Past Surgical History: Appendectomy, Hysterectomy, Tonsillectomy, Tubal Ligation Additional Past Surgical History / Comment(s): Cystoscopy with Hydrodistension, LYMPH NODES REMOVED RT SIDE NECK Past Anesthesia/Blood Transfusion Reactions: Motion Sickness, Postoperative Nausea & Vomiting (PONV) Additional Past Anesthesia/Blood Transfusion Reaction / Comment(s): ITCHY FROM SOME ANESTHETIC MEDS, BENADRYL WORKS. Past Psychological History: Anxiety Smoking Status: Former smoker Past Alcohol Use History: Unable to Obtain Additional Past Alcohol Use History / Comment(s): QUIT SMOKING IN 2019, SMOKED FOR 20 YRS @ 1PPD. Past Drug Use History: Unable to Obtain Additional Drug Use History / Comment(s): CURRENTLY USES MARIJUANA. - Past Family History Mother Family Medical History: No Reported History Daughter(s) Family Medical History: Blood Disorder Additional Family Medical History / Comment(s): FACTOR ELEVEN Medications and Allergies Home Medications Medication Instructions Recorded Confirmed Type Famotidine 40 mg PO DAILY 05/09/19 05/09/19 History Ondansetron Odt [Zofran Odt] 4 mg PO Q8HR PRN #15 tab 05/09/19 05/09/19 Rx Allergies Allergy/AdvReac Type Severity Reaction Status Date / Time latex Allergy Rash/Hives Verified 05/09/19 17:31 sulfamethoxazole Allergy Rash/Hives Verified 05/09/19 17:31 [From Bactrim] trimethoprim [From Bactrim] Allergy Rash/Hives Verified 05/09/19 17:31 hydrocodone AdvReac Itching Verified 05/09/19 17:31 metal Allergy Swelling Uncoded 05/09/19 17:23 Physical Exam Vitals: Vital Signs Temp Pulse Pulse Resp BP BP Pulse Ox 05/10/19 11:28 98.3 F 45 L 15 109/66 97 05/10/19 05:21 98.5 F 42 L 16 90/48 97 05/09/19 23:00 98.4 F 70 16 95/58 96 05/09/19 19:57 97.9 F 59 L 18 104/65 98 05/09/19 18:39 60 18 106/83 99 05/09/19 17:21 97.8 F 80 16 117/86 100 Intake and Output 05/09/19 05/10/19 05/10/19 22:59 06:59 14:59 Intake Total 50 Balance 50 Intake: Oral 50 Other: # Voids 0 1 2 Weight 63.503 kg Results CBC & Chem 7: 05/09/19 15:25 05/09/19 15:25 Labs: Abnormal Lab Results - Last 24 Hours (Table) 05/09/19 05/09/19 Range/Units 15:25 19:55 Glucose 100 H (74-99) mg/dL Urine Appearance Cloudy H (Clear) Urine Protein 1+ H (Negative) Urine Ketones 2+ H (Negative) Urine Blood Moderate H (Negative) Ur Leukocyte Esterase Moderate H (Negative) Urine RBC 79 H (0-5) /hpf Urine WBC 29 H (0-5) /hpf Calcium Oxalate Crystal Many H (None) /hpf Urine Mucus Many H (None) /hpf Thrombosis Risk Factor Assmnt - Choose All That Apply Any of the Below Risk Factors Present?: Yes Each Factor Represents 1 point: Age 41-60 years Other Risk Factors: No Thrombosis Risk Factor Assessment Total Risk Factor Score: 1 Thrombosis Risk Factor Assessment Level: Low Risk
[2019-05-10] MEDS: DICYCLOMINE 10 MG CAP PO SCH ×3 (14:00→20:25)
[2019-05-10] MEDS: ENOXAPARIN 40 MG/0.4 ML SYRINGE SQ SCH (14:00)
[2019-05-10] MEDS: IPRATROPIUM-ALBUTEROL 3 ML NEB INHALATION SCH ×2 (15:02→19:39)
[2019-05-10] MEDS: FAMOTIDINE 20 MG TAB PO SCH (20:24)
[2019-05-11] MEDS: SODIUM CHLORIDE 0.9% 1,000 ML IV SCH ×2 (04:56→13:31)
[2019-05-11] MEDS: DICYCLOMINE 10 MG CAP PO SCH ×3 (07:42→19:03)
[2019-05-11] MEDS: FAMOTIDINE 20 MG TAB PO SCH ×2 (07:42→22:32)
[2019-05-11] MEDS: ENOXAPARIN 40 MG/0.4 ML SYRINGE SQ SCH (07:42)
[2019-05-11] MEDS: ASPIRIN-ACET-CAFF 250-250-65MG 1 EACH TAB PO PRN (07:42)
[2019-05-11 07:44] LABS: African American GFR (CKD) >90 (>60 ml/min/1.73 sqM); Anion Gap 6 mmol/L; Blood Urea Nitrogen 9 mg/dL (7-17); Calcium 8.3 mg/dL (8.4-10.2); Carbon Dioxide 25 mmol/L (22-30); Chloride 111 mmol/L (98-107); Glucose 78 mg/dL (74-99); Potassium 3.5 mmol/L (3.5-5.1); Sodium 142 mmol/L (137-145)
[2019-05-11] MEDS: IPRATROPIUM-ALBUTEROL 3 ML NEB INHALATION SCH ×4 (08:13→20:58)
[2019-05-11] MEDS: IOPAMIDOL-300 CONTRAST 30 ML VIAL (ORAL USE) PO PRN ×2 (12:18→13:30)
--- NOTE | 2019-05-11 13:05 | P.PN ---
Subjective Progress Note Date: 05/11/19 CHIEF COMPLAINT: abdominal pain HISTORY OF PRESENT ILLNESS: Patient examined at the bedside this morning. She continues to report abdominal pain, mostly near umbilicus. She denies nausea or vomiting at this time. Reports multiple episodes of vomiting before hospi talization. She denies passing flatus. Last BM on saturday. She reports feeling bloated. PHYSICAL EXAM: VITAL SIGNS: Reviewed. GENERAL: Well-developed in no acute distress. HEENT: No sclera icterus. Extraocular movements grossly intact. Moist buccal mucosa. Head is atraumatic, normocephalic. ABDOMEN: Soft. Mild bloating. Diffuse tenderness. Positive bowel sounds. NEUROLOGIC: Alert and oriented. Cranial nerves II through XII grossly intact. ASSESSMENT: 1. Abdominal pain, suspected small bowel obstruction PLAN: 1. NPO. Continue IV fluids 2. Repeat CT scan with oral contrast today 3. Further recommendations pending Nurse practitioner note has been reviewed by physician. Signing provider agrees with the documented findings, assessment, and plan of care. Objective - Vital Signs Vital signs: Vital Signs Temp 97.8 F 05/11/19 11:38 Pulse 52 L 05/11/19 12:04 Resp 16 05/11/19 11:38 BP 140/52 05/11/19 11:38 Pulse Ox 97 05/11/19 11:38 Intake & Output 05/10/19 05/11/19 05/11/19 18:59 06:59 18:59 Intake Total 100 830 Balance 100 830 Intake: Oral 100 830 Other: Voiding Method Toilet # Voids 2 2 - Labs CBC & Chem 7: 05/09/19 15:25 05/11/19 06:48 Labs: Abnormal Lab Results - Last 24 Hours (Table) 05/11/19 Range/Units 06:48 Chloride 111 H (98-107) mmol/L Calcium 8.3 L (8.4-10.2) mg/dL
--- NOTE | 2019-05-11 14:33 | P.CONS ---
History of Present Illness - Reason for Consult Consult date: 05/11/19 Bowel obstruction Requesting physician: Emanuel Garcia - Chief Complaint Abdominal pain nausea vomiting - History of Present Illness 48-year-old female patient of Dr. Reid and Dr. Munson [facility] invasive well- differentiated squamous cell carcinoma skin cancer February 2019 status post excision margins negative for malignancy admitted with acute abdominal pain nausea vomiting 3 days. EGD colonoscopy March [address] Simons for change in bowel habits history of polyps as well as nausea vomiting again benefit a sliding hiatal hernia with no obvious esophagitis or Reflux disease. Colonoscopy was attempted using both adult and pediatric colonoscopes however unable to pass the endoscope safely into the distal sigmoid. She was advised considering CT colography for further workup. CT abdomen and pelvis on 05/08/2019 with IV contrast only reported mild wall thickening of the small bowel seen within the deep pelvis which may represent nonspecific enteritis. Repeat CT of the abdomen with oral contrast is scheduled today. General surgeon has been consulted and presently evaluating. Hemoglobin 14.5. White count 7.4. Review of Systems Constitutional: Denies fever, chills, sweats, weight gain, or loss. HEENT: Negative for migraines, blurred vision or loss, earaches, drainage, tinnitus, oral mucosal lesions, dysphagia, or odynophagia. CARDIAC: Negative for chest pain, arrhythmias, or palpitation. RESPIRATORY: Negative for shortness of breath, hemoptysis, cough, or sputum production. GI: See HPI for pertinent findings. : Negative for hematuria, urgency, frequency, polyuria, or dysuria. GYNc: Denies possibility of . Negative vaginal discharge. MUSCULOSKELETAL: Negative for muscle aches, swelling, arthritis, and arthralgias. NEUROLOGIC: Negative for stroke or TIA. ENDOCRINE: Negative for thyroid problems. SKIN: Negative for rash or itching. PSYCHIATRIC: Negative history for depression and anxiety Past Medical History Past Medical History: Cancer, GERD/Reflux, Hypertension, Neurologic Disorder, Osteoarthritis (OA) Additional Past Medical History / Comment(s): IBS, INTERSTITIAL CYSTITIS. HIATAL HERNIA,stiff person syndrome, HEART PALPITATIONS, DIVERTICULITIS PER CT, rt ring finger swelling possible metal allergy ring removed, skin cancer removed right side groin February 2019 History of Any Multi-Drug Resistant Organisms: None Reported Past Surgical History: Appendectomy, Hysterectomy, Tonsillectomy, Tubal Ligation Additional Past Surgical History / Comment(s): Cystoscopy with Hydrodistension, LYMPH NODES REMOVED RT SIDE NECK Past Anesthesia/Blood Transfusion Reactions: Motion Sickness, Postoperative Nausea & Vomiting (PONV) Additional Past Anesthesia/Blood Transfusion Reaction / Comm: ITCHY FROM SOME ANESTHETIC MEDS, BENADRYL WORKS. Past Psychological History: Anxiety Smoking Status: Former smoker Past Alcohol Use History: Unable to Obtain Additional Past Alcohol Use History / Comment(s): QUIT SMOKING IN 2019, SMOKED FOR 20 YRS @ 1PPD. Past Drug Use History: Unable to Obtain Additional Drug Use History / Comment(s): CURRENTLY USES MARIJUANA. - Past Family History Mother Family Medical History: No Reported History Daughter(s) Family Medical History: Blood Disorder Additional Family Medical History / Comment(s): FACTOR ELEVEN Medications and Allergies Home Medications Medication Instructions Recorded Confirmed Type Famotidine 40 mg PO DAILY 05/09/19 05/09/19 History Ondansetron Odt [Zofran Odt] 4 mg PO Q8HR PRN #15 tab 05/09/19 05/09/19 Rx Allergies Allergy/AdvReac Type Severity Reaction Status Date / Time latex Allergy Rash/Hives Verified 05/09/19 17:31 sulfamethoxazole Allergy Rash/Hives Verified 05/09/19 17:31 [From Bactrim] trimethoprim [From Bactrim] Allergy Rash/Hives Verified 05/09/19 17:31 hydrocodone AdvReac Itching Verified 05/09/19 17:31 metal Allergy Swelling Uncoded 05/09/19 17:23 Physical Exam Vitals: Vital Signs Temp Pulse Pulse Resp BP Pulse Ox 05/11/19 12:04 52 L 05/11/19 11:53 52 L 05/11/19 11:38 97.8 F 46 L 16 140/52 97 05/11/19 08:27 52 L 05/11/19 08:13 52 L 05/11/19 05:00 98.1 F 44 L 16 86/49 97 05/10/19 20:49 97.9 F 61 16 105/66 97 05/10/19 19:48 52 L 05/10/19 19:39 50 L 05/10/19 15:18 50 L 05/10/19 15:04 46 L Intake and Output 05/10/19 05/11/19 05/11/19 22:59 06:59 14:59 Intake Total 290 590 Balance 290 590 Intake: Oral 290 590 Other: Voiding Method Toilet # Voids 1 2 General appearance: The patient is alert, oriented, in no acute distress. HET: Head is normocephalic and atraumatic. Pupils are equal and reactive. Oropharynx is clear without lesions. Neck: Supple without lymphadenopathy. Trachea midline. Heart: S1 S2. Regular rate and rhythm. Lungs: No crackles or wheezes are heard. Abdomen: Soft, mild tenderness to the mid abdomen, nondistended with bowel sounds. No peritoneal signs. No palpable organomegaly or masses. Extremities: Normal skin color and turgor. No cyanosis, rash, ulceration, clubbing, or edema. Radial and pedal pulses are 2/4 bilaterally. Neurological: No focal deficits. Strength and sensation are grossly intact. Results CBC & Chem 7: 05/09/19 15:25 05/11/19 06:48 Labs: Abnormal Lab Results - Last 24 Hours (Table) 05/11/19 Range/Units 06:48 Chloride 111 H (98-107) mmol/L Calcium 8.3 L (8.4-10.2) mg/dL CT scan - abdomen: pending (With contrast pending), report reviewed (Dr. Ley) Assessment and Plan (1) Abdominal pain Narrative/Plan: Acute abdominal pain nausea vomiting CT cannot exclude enteritis possible small bowel obstruction, CT on admission reported small bowel wall thickening possible enteritis presently being evaluated by general surgery with repeat computed tomography scan of the abdomen and pelvis with oral contrast. Colonoscopy March 2019 incomplete unable to pass colonoscope beyond distal sigmoid. Current Visit: No Status: Acute Code(s): R10.9 - UNSPECIFIED ABDOMINAL PAIN SNOMED Code(s): 24463136 (2) Nausea & vomiting Current Visit: Yes Status: Acute Code(s): R11.2 - NAUSEA WITH VOMITING, UNSPECIFIED SNOMED Code(s): 99684525 (3) History of skin cancer Narrative/Plan: History of invasive well-differentiated squamous cell carcinoma status post excision February 2019 margins negative for malignancy Current Visit: Yes Status: Resolved Code(s): Z85.828 - PERSONAL HISTORY OF OTHER MALIGNANT NEOPLASM OF SKIN SNOMED Code(s): 862019643 Plan: 1. Patient was calling GI office and requesting a GI consult for her admitting symptoms. Patient was unsure whether general surgery or GI would be evaluating her abdominal complaints. Presently she is resting comfortably and scheduled for computed tomography scan abdomen and pelvis with oral contrast. General surgery following closely. Continuous symptomatically supportive measures. If no surgical plans patient may followup in GI office outpatient CT colography advised as previously recommended by planning manager. Thank you for this kind referral and the opportunity to participate in the care of your patient. This consultation was discussed with Dr. Ley. The impression and plan of care have been directed as dictated.
--- NOTE | 2019-05-11 15:14 | CT ---
EXAMINATION TYPE: CT abdomen pelvis wo con DATE OF EXAM: 05/11/2019 HISTORY: Partial small bowel obstruction CT DLP: 331.6 mGycm. Automated Exposure Control for Dose Reduction was Utilized. TECHNIQUE: CT scan of the abdomen and pelvis is performed without oral or IV contrast. COMPARISON: CT abdomen and pelvis 2 days ago. FINDINGS: Within the limitations of a non-contrast study, the following observations are made. LUNG BASES: No significant abnormality is appreciated. LIVER/GB: No significant abnormality is appreciated. PANCREAS: No significant abnormality is seen. SPLEEN: No significant abnormality is seen. ADRENALS: No significant abnormality is seen. KIDNEYS: Stable 1 to 2 mm nonobstructing calculus mid to lower pole of left kidney coronal image 49. BOWEL: Oral contrast reaches level of mid transverse colon. No suspicious small or large bowel dilata tion on current study. GENITAL ORGANS: Uterus is surgically absent or atrophic. LYMPH NODES: No greater than 1cm abdominal or pelvic lymph nodes are appreciated. OSSEOUS STRUCTURES: Marked disc space narrowing with anterior sclerosis and vacuum disc phenomenon T1 1-T12 level redemonstrated. Partial visualization of hemangioma T12 level. OTHER: No significant additional abnormality is seen. IMPRESSION: No small bowel obstruction currently.
--- NOTE | 2019-05-11 22:21 | P.PN ---
Progress Note - Text Progress Note Date: 05/11/19 Chief Complaint: Abdominal pain Interval history: This is a pleasant 48-year-old patient of Dr. Jackson. Chronic stable medical conditions include GERD, hypertension, irritable bowel syndrome, interstitial cystitis, hiatal hernia, gastritis. Patient was being worked up by business development representative late Dr. Castro. Patient had just gotten approved to have a 3-D imaging done at [facility] in [place]. Last few weeks patient been having small size bowel movements. Patient 2 days ago started of with increasing abdominal upper abdominal pain with several bouts of vomiting and presented to ER. Computed tomography scan of the abdomen showed some mild wall thickening of the small bowel and nonobstructing calculus within the left kidney. Patient is felt to food poisoning and discharged home. Patient continued to have further vomiting and decided to come back to the ER. Bit more vomiting. There is a question about enteritis and possible small bowel obstruction/ileus. Patient was made nothing by mouth and admitted. Since admission no further vomiting but nausea is present. Patient has received medications. Last bowel movement was 2 days ago. As a rule patient's bowel movement normally varies. General surgery was consulted. No fever no chills. Patient's felt to have viral acute enteritis with a possible ileus Today-sliding diffuse abdominal pain. No vomiting. On clear liquids. No fever no chills. Patient clarified that she did not have any rectal pain would actually coccygeal pain. Patient denies having passed any flatus or BM today Review of systems: Was done for constitutional, cardiovascular, GI, pulmonary. relevant finding as above Active Medications Acetaminophen/Aspirin/Caffeine (Excedrin) 2 each PO Q6HR PRN PRN Reason: Headache Last Admin: 05/11/19 07:42 Dose: 2 each Documented by: Albuterol/Ipratropium (Duoneb 0.5 Mg-3 Mg/3 Ml Soln) 3 ml INHALATION RT-QID [facility] Last Admin: 05/11/19 20:58 Dose: 3 ml Documented by: Dicyclomine HCl (Bentyl) 10 mg PO QID [facility] Last Admin: 05/11/19 19:03 Dose: 10 mg Documented by: Enoxaparin Sodium (Lovenox) 40 mg SQ DAILY [facility] Last Admin: 05/11/19 07:42 Dose: 40 mg Documented by: Famotidine (Pepcid) 40 mg PO BID [facility] Last Admin: 05/11/19 07:42 Dose: 40 mg Documented by: Sodium Chloride (Saline 0.9%) 1,000 mls @ 120 mls/hr IV .Q8H20M [facility] Last Admin: 05/11/19 13:31 Dose: 120 mls/hr Documented by: Naloxone HCl (Narcan) 0.2 mg IV Q2M PRN PRN Reason: Opioid Reversal Ondansetron HCl (Zofran) 4 mg IVP Q8HR PRN PRN Reason: Nausea And Vomiting Last Admin: 05/10/19 08:01 Dose: 4 mg Documented by: Physical examination: VITAL SIGNS: 97.8, 46, 16, 1 40 x 32, 97% room air GENERAL: Sitting up today a bit more comfortable. EYES: Pupils equal. Conjunctiva normal. HEENT: External appearance of nose and ears normal, oral cavity grossly normal. NECK: JVD not raised; masses not palpable. HEART: First and second heart sounds are normal; no edema. LUNGS: Respiratory rate increased, diminished breath sounds prolonged expiration and wheezing. ABDOMEN: Soft, diffuse tenderness, no guarding or rigidity, liver spleen not palpable, no masses palpable, bowel sounds present. PSYCH: [Alert and oriented x3; mood and affect anxious l. NEUROLOGICAL: Cranial nerves grossly intact; no facial asymmetry, power and sensation grossly intact. LYMPHATICS: No lymph nodes palpable in the axilla and neck INVESTIGATIONS, reviewed in the clinical context: Potassium 3.5 creatinine 0.65 Computed tomography scan of the abdomen-no small bowel obstruction Admission labs Computed tomography scan of the abdomen results as above from the ER visit on Saturday Abdominal x-ray film personally reviewed by me shows slightly prominent small bowel loops with air-fluid levels Assessment: -Acute enteritis likely viral, leading to its nonmechanical obstruction possibly ileus, POA. I suspect underlying hypersensitive bowel -COPD in an ex-smoker -GERD -Essential hypertension -Irritable bowel syndrome -Chronic interstitial cystitis -Hiatal hernia -Chronic gastritis Plan: Will increase patient's dose of Bentyl. GI will be consulted as patient having significant abdominal pain still. Follow with surgery. It may be noted patient has no fever no white count
[2019-05-11] MEDS: DICYCLOMINE 20 MG TAB PO SCH (22:32)
[2019-05-11] MEDS: CALCIUM CARBONATE LIQUID 500 MG/5 ML CUP PO SCH (22:32)
[2019-05-12] MEDS: DICYCLOMINE 10 MG CAP PO SCH
[2019-05-12] MEDS: SODIUM CHLORIDE 0.9% 1,000 ML IV SCH ×2 (00:14→06:10)
[2019-05-12] MEDS: IPRATROPIUM-ALBUTEROL 3 ML NEB INHALATION SCH ×2 (07:26→11:09)
[2019-05-12] MEDS: ENOXAPARIN 40 MG/0.4 ML SYRINGE SQ SCH (08:16)
[2019-05-12] MEDS: CALCIUM CARBONATE LIQUID 500 MG/5 ML CUP PO SCH (08:16)
[2019-05-12] MEDS: FAMOTIDINE 20 MG TAB PO SCH (08:16)
[2019-05-12] MEDS: DICYCLOMINE 20 MG TAB PO SCH (08:16)
[2019-05-12] MEDS: ASPIRIN-ACET-CAFF 250-250-65MG 1 EACH TAB PO PRN (08:18)
[2019-05-12 11:51] VITALS: BP 125/60; PULSE 55; RESP 16; TEMP 98.1
--- NOTE | 2019-05-12 14:06 | P.PN ---
Subjective Progress Note Date: 05/12/19 CHIEF COMPLAINT: abdominal pain HISTORY OF PRESENT ILLNESS: Patient examined this morning with Dr. Munson. She is sitting in the chair. She reports improvement in abdominal pain. Denies nausea or vomiting. Tolerating full liquid diet. CAT scan was repeated y esterday with oral contrast. No evidence of small bowel obstruction visualized. PHYSICAL EXAM: VITAL SIGNS: Reviewed. GENERAL: Well-developed in no acute distress. HEENT: No sclera icterus. Extraocular movements grossly intact. Moist buccal mucosa. Head is atraumatic, normocephalic. ABDOMEN: Soft. Nondistended. Minimal tenderness. Positive bowel sounds. NEUROLOGIC: Alert and oriented. Cranial nerves II through XII grossly intact. ASSESSMENT: 1. Abdominal pain, suspected small bowel obstruction secondary to adhesions versus nonspecific enteritis, resolved PLAN: Continue diet as tolerated. Patient stable for discharge home today from a surgical standpoint per Dr. Munson. Patient to follow-up with Dr. Jeimy cisneros in 2 weeks. Nurse practitioner note has been reviewed by physician. Signing provider agrees with the documented findings, assessment, and plan of care. Objective - Vital Signs Vital signs: Vital Signs Temp 98.1 F 05/12/19 11:49 Pulse 55 L 05/12/19 11:49 Resp 16 05/12/19 11:49 BP 125/60 05/12/19 11:49 Pulse Ox 99 05/12/19 11:49 Intake & Output 05/11/19 05/12/19 05/12/19 18:59 06:59 18:59 Intake Total 1380 400 Balance 1380 400 Intake: Intake, IV Titration 1380 Amount Sodium Chloride 0.9% 1, 1380 000 ml @ 120 mls/hr IV . Q8H20M [facility] Rx#:[id number] Oral 400 Other: Voiding Method Toilet Toilet Toilet # Voids 5 1 - Labs CBC & Chem 7: 05/09/19 15:25 05/11/19 06:48
--- NOTE | 2019-05-13 00:13 | P.DS ---
Providers Date of admission: 05/09/19 19:29 Expected date of discharge: 05/12/19 Attending physician: Emanuel Garcia Consults: 05/10/19 08:43 Consult Physician Routine Consulting Provider: Deven Munson Consult Reason/Comments: sbo, known to you Do you want consulting provider notified?: Already Contacted Primary care physician: [facility] Course: Interval history: This is a pleasant 48-year-old patient of Dr. Jackson. Chronic stable medical conditions include GERD, hypertension, irritable bowel syndrome, interstitial cystitis, hiatal hernia, gastritis. Patient was being worked up by senior commercial loan officer late Dr. Castro. Patient had just gotten approved to have a 3-D imaging done at [facility] in [place]. Last few weeks patient been having small size bowel movements. Patient 2 days ago started of with increasing abdominal upper abdominal pain with several bouts of vomiting and presented to ER. Computed tomography scan of the abdomen showed some mild wall thickening of the small bowel and nonobstructing calculus within the left kidney. Patient is felt to food poisoning and discharged home. Patient continued to have further vomiting and decided to come back to the ER. Bit more vomiting. There is a question about enteritis and possible small bowel obstruction/ileus. Patient was made nothing by mouth and admitted. Since admission no further vomiting but nausea is present. Patient has received medications. Last bowel movement was 2 days ago. As a rule patient's bowel movement normally varies. General surgery was consulted. No fever no chills. Patient's felt to have viral acute enteritis with a possible ileus Patient was managed conservatively and empirically. Doing much better. Pain is constant gone down. That has been advanced. Computed tomography scan of the abdomen was nonspecific. Consultations: Dr. Ashley Ley from GI Dr. Munson from general surgery Physical examination: VITAL SIGNS: 98.1, 55, 16, 125 is 60, 99% room air GENERAL: Sitting up , comfortable. EYES: Pupils equal. Conjunctiva normal. HEENT: External appearance of nose and ears normal, oral cavity grossly normal. NECK: JVD not raised; masses not palpable. HEART: First and second heart sounds are normal; no edema. LUNGS: Respiratory rate increased, diminished breath sounds prolonged expiration and wheezing. ABDOMEN: Soft, diffuse tenderness, no guarding or rigidity, liver spleen not palpable, no masses palpable, bowel sounds present. PSYCH: [Alert and oriented x3; mood and affect anxious l. INVESTIGATIONS, reviewed in the clinical context: Potassium 3.5 creatinine 0.65 white count 7.4 Computed tomography scan of the abdomen-no small bowel obstruction Admission labs Computed tomography scan of the abdomen results as above from the ER visit on Saturday Abdominal x-ray film personally reviewed by me shows slightly prominent small bowel loops with air-fluid levels Assessment: -Acute enteritis likely viral, leading to its nonmechanical obstruction possibly ileus, POA. Clinically much improved -COPD in an ex-smoker -GERD -Essential hypertension -Irritable bowel syndrome -Chronic interstitial cystitis -Hiatal hernia -Chronic gastritis Disposition: Home Patient Condition at Discharge: Stable Plan - Discharge Summary New Discharge Prescriptions: New Dicyclomine [Bentyl] 10 mg PO TID PRN #30 capsule PRN Reason: Spasms Continue Ondansetron Odt [Zofran ODT] 4 mg PO Q8HR PRN #15 tab PRN Reason: Nausea Changed Famotidine 40 mg PO BID #60 tablet Discharge Medication List Ondansetron Odt [Zofran ODT] 4 mg PO Q8HR PRN #15 tab 05/09/19 [Rx] Dicyclomine [Bentyl] 10 mg PO TID PRN #30 capsule 05/12/19 [Rx] Famotidine 40 mg PO BID #60 tablet 05/12/19 [Rx] Follow up Appointment(s)/Referral(s): Clayton Reid MD [Primary Care Provider] - 05/19/19 10:15 am ( ) Cooper Madrid MD [STAFF PHYSICIAN] - 06/22/19 9:00 am Deven Munson MD [STAFF PHYSICIAN] - 1 Week Patient Instructions/Handouts: Famotidine (By mouth), Dicyclomine (By mouth), Bowel Obstruction (DC) Discharge Disposition: HOME SELF-CARE
== END 2019-05-12 15:00 | disposition home or self-care (01) | DRG 392 ==
LOC: EC 17:05 → 3NMEDONC 19:29
PROVIDERS: ADMIT Hospitalist; ATTEND Hospitalist
DX: A08.4 Viral intestinal infection, unspecified (principal); K56.600 Partial intestinal obstruction, unspecified as to cause; G25.82 Stiff-man syndrome; F41.9 Anxiety disorder, unspecified; Z85.828 Personal history of other malignant neoplasm of skin; I10 Essential (primary) hypertension; J44.9 Chronic obstructive pulmonary disease, unspecified; K21.9 Gastro-esophageal reflux disease without esophagitis; K29.50 Unspecified chronic gastritis without bleeding; K44.9 Diaphragmatic hernia without obstruction or gangrene; K58.9 Irritable bowel syndrome, unspecified; N30.10 Interstitial cystitis (chronic) without hematuria; Z86.010 Personal history of colon polyps; Z87.891 Personal history of nicotine dependence; Z90.710 Acquired absence of both cervix and uterus; Z88.5 Allergy status to narcotic agent; Z88.2 Allergy status to sulfonamides; Z88.1 Allergy status to other antibiotic agents; Z91.040 Latex allergy status; Z83.2 Family history of diseases of the blood and blood-forming organs and certain disorders involving the immune mechanism; Z79.899 Other long term (current) drug therapy; N20.0 Calculus of kidney
CPT/HCPCS: 36415; 74018; 74176; 80048; 80053; 81001; 82150; 83690; 85025; 85610; 85730; 94640; 96361; 96372; 96374; 96375; 99285

== ENCOUNTER → 2019-08-17 | Outpatient (CLI) | payer OTHER | LOC: CPPFTMAIN 09:42 | PROVIDERS: ATTEND Internal Medicine Critical Care Medicine | DX: J43.9 Emphysema, unspecified (principal) | CPT/HCPCS: 94060; 94726; 94729 ==

== ENCOUNTER → 2019-09-02 | Outpatient (CLI) | payer OTHER ==
--- NOTE | 2019-09-02 12:48 | NM ---
EXAMINATION TYPE: NM gastric emptying static DATE OF EXAM: 09/02/2019 COMPARISON: CT 05/11/2019 HISTORY: Nausea and vomiting Following administration of 2.27 mCi Tc 99m Sulfur Colloid with 4 oz of eggs and 4 oz of water, proje ction images of the abdomen were obtained 10 minutes post ingestion. Patient Emptying Values 1 Hour 32 % 2 Hours 75 % 3 Hours 99 % 4 Hours 100 % Gastroesophagel reflux: None IMPRESSION: Gastric emptying: Gastric emptying is rapid Gastroesophageal reflux: None Gastric emptying normal percentage values: 30 minutes: <70% of retention (> 30% emptying) suggests abnormally fast emptying. 60 minutes: <90% retention (>10% emptying) is normal; less than 30% retention (>70% emptying) suggest s abnormally rapid emptying. 90 minutes: <65% retention (> 35% emptying) is normal. 120 minutes: <60% retention (> 40% emptying) is normal. 180 minutes: <30% retention (> 70% emptying) is normal. Gastric emptying T-1/2: Solid: The normal range is 60-105 minutes Liquid only: Normal range is 10-45 minutes. Liquid only-children: At 60 minutes, normal range is 44-58 % . Liquid only-infants: At 60 minutes, normal range is 32-64 %. Additional references: Gastric Emptying Scintigraphy [email or web address]://[email or web address]
== END | disposition home or self-care (01) ==
LOC: RADNMMAIN 07:00
PROVIDERS: ATTEND Internal Medicine Gastroenterology
DX: R11.2 Nausea with vomiting, unspecified (principal)
CPT/HCPCS: 78264; A9541

== ENCOUNTER → 2019-12-05 | Outpatient (CLI) | payer OTHER ==
--- NOTE | 2019-12-06 14:39 | CT ---
EXAMINATION TYPE: CT abdomen pelvis wo con DATE OF EXAM: 12/05/2019 COMPARISON: 05/11/2019 INDICATION: Rt flank pain DLP: 301.8 mGycm, Automated exposure control for dose reduction was used. CONTRAST: 0 mL of Isovue 300. Study performed without Oral Contrast TECHNIQUE: Axial images were obtained from above the diaphragm to the pubic rami in the axial plane a t 5 mm thick sections. Reconstructed images are reviewed on the computer in the coronal plane. FINDINGS: Limited CT sections are obtained the lung bases. The lung bases are clear. Epicardial fat pad is li carmella present on the right. CT ABDOMEN: Liver: Normal Spleen: Normal Pancreas: Normal Adrenal glands: The adrenal glands are normal. Gallbladder: Normal Kidneys: No masses are evident. No hydronephrosis is present. No cysts are present. There is a 0.2 cm nonobstructing mid left renal stone. Some very faint calcification is not excluded on the right. Consider medullary sponge kidney. No hydronephrosis or hydroureter is evident. Aorta: Vascular calcification is within the aorta. Inferior vena cava: Normal. CT PELVIS: Loops of bowel within the abdomen and pelvis are normal. Study is without oral contrast limiting bowel evaluation. Fecal debris is scattered through the colon. Appendix: Not identified. No suspicious tubular structures or inflammatory changes are evident. Urinary bladder: Normal. Genitourinary structures: Uterus and ovaries are not identified. Osseous structures: No suspicious lytic or sclerotic lesions. Degenerative disc changes are at the th oracolumbar junction. No significant interval changes evident. IMPRESSIONS: 1. 0.2 cm nonobstructing mid left renal stone. 2. Some very faint calcifications may be present on the right without obstruction. Consider medullary sponge kidney. 3. Nonvisualization of the appendix. Clinical management of any suspected appendicitis will be requir ed. No secondary signs to suggest acute appendicitis are radiographically apparent. 4. No suspicious abnormality to account for right flank pain.
== END | disposition home or self-care (01) ==
LOC: RADCTMAIN 12:30
PROVIDERS: ATTEND Urology
DX: N20.0 Calculus of kidney (principal); Z88.1 Allergy status to other antibiotic agents
CPT/HCPCS: 74176

== ENCOUNTER 2020-03-02 10:14 | Emergency (ER) | payer OTHER ==
[2020-03-02 10:38] VITALS: BP 99/61; PULSE 73; RESP 18; TEMP 98.1
[2020-03-02] MEDS ORDERED: DIPH,PERTUS(ACELL)TETVAC-LF 0.5 ML VIAL IM ONE (10:52)
--- NOTE | 2020-03-02 11:09 | ED ---
Extremity Problem HPI - General Chief complaint: Extremity Problem,Nontraumatic Stated complaint: Hand injury Time Seen by Provider: 03/02/20 10:44 Source: patient Mode of arrival: ambulatory Limitations: no limitations - History of Present Illness Initial comments: Patient is a 49-year-old female presenting to the emergency department with a chief complaint of finger numbness. Patient states yesterday she was using a steak knife, when she accidentally pierced through between the third and fourth MCP joints.. States she has full range of motion but has lost sensation on the medial half of the third and fourth digit. States she cannot feel pressure or pain. States she has full range of motion in both fingers. Is not aware of her tetanus status. States the pain is minimal. Denies any signs of erythema or swelling on the hand. - Related Data Previous Rx's Medication Instructions Recorded Ondansetron Odt [Zofran ODT] 4 mg PO Q8HR PRN #15 tab 05/09/19 Dicyclomine [Bentyl] 10 mg PO TID PRN #30 capsule 05/12/19 Famotidine 40 mg PO BID #60 tablet 05/12/19 Allergies Allergy/AdvReac Type Severity Reaction Status Date / Time latex Allergy Rash/Hives Verified 03/02/20 10:38 sulfamethoxazole Allergy Rash/Hives Verified 03/02/20 10:38 [From Bactrim] trimethoprim [From Bactrim] Allergy Rash/Hives Verified 03/02/20 10:38 hydrocodone AdvReac Itching Verified 03/02/20 10:38 metal Allergy Swelling Uncoded 03/02/20 10:38 Review of Systems ROS Statement: Those systems with pertinent positive or pertinent negative responses have been documented in the HPI. ROS Other: All systems not noted in ROS Statement are negative. Past Medical History Past Medical History: COPD Additional Past Medical History / Comment(s): IBS, INTERSTITIAL CYSTITIS. HIATAL HERNIA,stiff person syndrome, HEART PALPITATIONS, DIVERTICULITIS PER CT, skin cancer removed right side groin February 2019 History of Any Multi-Drug Resistant Organisms: None Reported Past Surgical History: Hysterectomy, Tonsillectomy Additional Past Surgical History / Comment(s): Cystoscopy with Hydrodistension, LYMPH NODES REMOVED RT SIDE NECK, skin ca removal Past Anesthesia/Blood Transfusion Reactions: Motion Sickness, Postoperative Nausea & Vomiting (PONV) Additional Past Anesthesia/Blood Transfusion Reaction / Comment(s): ITCHY FROM SOME ANESTHETIC MEDS, BENADRYL WORKS. Past Psychological History: Anxiety Smoking Status: Former smoker Past Alcohol Use History: Unable to Obtain Past Drug Use History: Unable to Obtain - Past Family History Mother Family Medical History: No Reported History Daughter(s) Family Medical History: Blood Disorder Additional Family Medical History / Comment(s): FACTOR ELEVEN General Exam Limitations: no limitations General appearance: alert, in no apparent distress Head exam: Present: atraumatic, normocephalic, normal inspection Eye exam: Present: normal appearance, PERRL, EOMI Pupils: Present: normal accommodation ENT exam: Present: normal exam, normal oropharynx, mucous membranes moist Neck exam: Present: normal inspection, full ROM Respiratory exam: Present: normal lung sounds bilaterally. Absent: respiratory distress, wheezes Cardiovascular Exam: Present: regular rate, normal rhythm, normal heart sounds Extremities exam: Present: full ROM, normal capillary refill, other (+2 ulnar and radial pulses bilateral. No sensation to pressure or pain on the medial aspect of the third and fourth digit of the left hand.). Absent: normal inspection (Healing laceration measuring less than 5 mm on the palmar aspect of the left hand.), tenderness Back exam: Present: normal inspection, full ROM Neurological exam: Present: alert, oriented X3 Psychiatric exam: Present: normal affect, normal mood Skin exam: Present: warm, dry, intact, normal color Course Vital Signs 03/02/20 10:34 Temperature 98.1 F Pulse Rate 73 Respiratory 18 Rate Blood Pressure 99/61 O2 Sat by Pulse 97 Oximetry Medical Decision Making - Medical Decision Making Patient is a 49-year-old female presenting to emergency Department with a chief complaint of finger numbness. Patient injured herself by stabbing her palm with a steak knife. X-ray is unremarkable. Patient does have numbness to pain and pressure in the medial aspect of the third and fourth digit. She is neurovascularly intact otherwise with full range of motion. I suspect the patient injured the digital nerves of the third and fourth digit which branch from the same nerve. Patient was given 8 tetanus shot. No signs of cellulitic changes or infection underwent. Return parameters were thoroughly discussed with patient is understanding and agreeable. Case discussed with physician. Disposition Clinical Impression: Injury of digital nerve of middle finger, Injury of digital nerve of left ring finger Disposition: HOME SELF-CARE Condition: Good Instructions (If sedation given, give patient instructions): Finger Laceration (ED) Additional Instructions: Return to emergency department if symptoms worsen. Follow-up with primary care. Is patient prescribed a controlled substance at d/c from ED?: No Referrals: Clayton Reid MD [Primary Care Provider] - 1-2 days Time of Disposition: 11:39
--- NOTE | 2020-03-02 11:27 | XR ---
EXAMINATION TYPE: XR hand complete LT DATE OF EXAM: 03/02/2020 CLINICAL HISTORY: pain TECHNIQUE: Frontal, lateral and oblique images of the left hand are obtained. COMPARISON: None. FINDINGS: There is no acute fracture/dislocation evident. The joint spaces appear within normal limi ts. The overlying soft tissue appears unremarkable. IMPRESSION: There is no acute fracture or dislocation. ICD 10 NO FRACTURE, INITIAL EVALUATION
== END 2020-03-02 12:06 | disposition home or self-care (01) ==
LOC: EC 10:14
DX: S64.493A Injury of digital nerve of left middle finger, initial encounter (principal); S64.495A Injury of digital nerve of left ring finger, initial encounter; Z23 Encounter for immunization; Z91.040 Latex allergy status; Z91.048 Other nonmedicinal substance allergy status; Z88.1 Allergy status to other antibiotic agents; Z88.2 Allergy status to sulfonamides; Z88.5 Allergy status to narcotic agent; Z87.891 Personal history of nicotine dependence; Z85.828 Personal history of other malignant neoplasm of skin; W26.0XXA Contact with knife, initial encounter
CPT/HCPCS: 90471; 90715; 99283

== ENCOUNTER 2021-12-28 11:30 | Emergency (ER) | payer OTHER ==
[2021-12-28] MEDS ORDERED: diphenhydrAMINE 50 MG/ML 1 ML VIAL IVP STA (12:12)
[2021-12-28] MEDS ORDERED: KETOROLAC 15 MG/ML 1 ML VIAL IVP STA (12:12)
--- NOTE | 2021-12-28 12:18 | ED ---
General Adult HPI - General Chief complaint: Recheck/Abnormal Lab/Rx Stated complaint: Vision issues/pain numbness in arm/face/head Time Seen by Provider: 12/28/21 11:52 Source: patient, RN notes reviewed, old records reviewed Mode of arrival: wheelchair Limitations: no limitations - History of Present Illness Initial comments: This is a 51-year-old female who presents to the ER today with complaints of left-sided head pain, visual disturbance, facial tingling. She reports that she has a white tunnel like vision out of her left eye. Patient reports that she's had a history of intermittent visual disturbances since her third Covid Vaccine since 28 of November. Patient states that she was seen at urgent care last Saturday or Saturday for complaints of a migraine. That time she was given steroids and anti-inflammatory injection. She reports that that is semi-helped with the headache and pain/ and visual changes but is now return again today. She reports that this pain is not consistent with her normal migraine. Patient reports that she has this deep pain behind her left eye. She reports she sees Dr. Marcos in the past year with concern of color changes in her vision. She reports no fever, chills, chest pain, or shortness of breath. - Related Data Home Medications Medication Instructions Recorded Confirmed Ketorolac [Toradol] 10 mg PO Q6H 12/28/21 12/28/21 Loratadine-Pseudoeph 5-120 mg 1 tab PO DAILY 12/28/21 12/28/21 [Claritin-D 12 Hour] diphenhydrAMINE HCL [Benadryl] 25 mg PO BID 12/28/21 12/28/21 guaiFENesin [Mucinex] 600 mg PO DAILY PRN 12/28/21 12/28/21 Allergies Allergy/AdvReac Type Severity Reaction Status Date / Time latex Allergy Rash/Hives Verified 12/28/21 13:23 all over arms nickel Allergy Swelling Verified 12/28/21 13:23 @contact site sulfamethoxazole Allergy Blisters Verified 12/28/21 13:23 [From Bactrim] on hand trimethoprim [From Bactrim] Allergy Blisters Verified 12/28/21 13:23 on hand hydrocodone AdvReac Itching Verified 12/28/21 13:23 metal Allergy Swelling Uncoded 12/28/21 13:23 @contact site Review of Systems ROS Statement: Those systems with pertinent positive or pertinent negative responses have been documented in the HPI. ROS Other: All systems not noted in ROS Statement are negative. Past Medical History Past Medical History: COPD Additional Past Medical History / Comment(s): IBS, INTERSTITIAL CYSTITIS. H IATAL HERNIA,stiff person syndrome, HEART PALPITATIONS, DIVERTICULITIS PER CT, skin cancer removed right side groin February 2019 History of Any Multi-Drug Resistant Organisms: None Reported Past Surgical History: Hysterectomy, Tonsillectomy Additional Past Surgical History / Comment(s): Cystoscopy with Hydrodistension, LYMPH NODES REMOVED RT SIDE NECK, skin ca removal Past Anesthesia/Blood Transfusion Reactions: Motion Sickness, Postoperative Nausea & Vomiting (PONV) Additional Past Anesthesia/Blood Transfusion Reaction / Comment(s): ITCHY FROM SOME ANESTHETIC MEDS, BENADRYL WORKS. Past Psychological History: Anxiety Smoking Status: Current every day smoker Past Alcohol Use History: None Reported Past Drug Use History: Marijuana - Past Family History Mother Family Medical History: No Reported History Daughter(s) Family Medical History: Blood Disorder Additional Family Medical History / Comment(s): FACTOR ELEVEN General Exam - General Exam Comments Initial Comments: 51 year old female. Limitations: no limitations General appearance: alert, in no apparent distress Head exam: Present: atraumatic, normocephalic, normal inspection Eye exam: Present: normal appearance (photophobic, ), PERRL, EOMI. Absent: scleral icterus, conjunctival injection, periorbital swelling Expanded Eyelids: Normal Inspection: Bilateral Pupils: Regular, Round: Bilateral Sclera/Conjunctival: Normal Inspection: Bilateral Anterior chamber: Normal Inspection: Bilateral Posterior chamber: Deferred: Bilateral Visual acuity (R) = 20/: 20 Visual acuity (L) = 20/: 200 (Only reports to seeing White hazy from left eye ) With correction: Yes IOP (R) in mmH IOP (L) in mmH IOP measured with: Tonopen ENT exam: Present: normal exam, mucous membranes moist Neck exam: Present: normal inspection. Absent: tenderness, meningismus, lymphadenopathy Respiratory exam: Present: normal lung sounds bilaterally. Absent: respiratory distress, wheezes, rales, rhonchi, stridor Cardiovascular Exam: Present: regular rate, normal rhythm, normal heart sounds. Absent: systolic murmur, diastolic murmur, rubs, gallop, clicks GI/Abdominal exam: Present: soft, normal bowel sounds. Absent: distended, tenderness, guarding, rebound, rigid Extremities exam: Present: normal inspection, full ROM, normal capillary refill. Absent: tenderness, pedal edema, joint swelling, calf tenderness Back exam: Present: normal inspection Neurological exam: Present: alert, oriented X3, CN II-XII intact Psychiatric exam: Present: normal affect, normal mood Skin exam: Present: warm, dry, intact, normal color. Absent: rash Course Vital Signs 12/28/21 12/28/21 12/28/21 11:38 12:07 14:00 Temperature 98.3 F 99.2 F Pulse Rate 84 83 75 Respiratory 20 14 12 Rate Blood Pressure 156/86 166/98 142/82 O2 Sat by Pulse 99 98 96 Oximetry Medical Decision Making - Medical Decision Making -year-old female presents to return today with complaints of left eye visual disturbance has been intermittent for the past week since receiving code vaccination. Just complains of pain behind the eye. Patient's visual acuity is 20/200 on the left eye 20/20 in the right eye. Intraocular pressures 11 on the left and 21 on the right. Patient had CT brain without contrast showing acute abnormality. CT venogram to rule out sinus venous thrombosis was completed and was negative for acute process. Patient's case was discussed with Dr. Rice also examined the Patient concerned for possible migraine for the etiology however Patient states this is not consistent with her typical migraine. Patient case was discussed with Dr. George, the partner for Dr. Marcos,her chemical processing supervisor. She requested Patient come to the office for further evaluation and retinal exam. Patient will have an appointment tomorrow at 10:30. Patient was a green service. She'll have her family members drive her. - Lab Data Result diagrams: 12/28/21 12:17 12/28/21 12:17 Lab Results 12/28/21 12/28/21 12/28/21 Range/Units 12:17 12:17 12:17 WBC 8.1 (3.8-10.6) k/uL RBC 4.87 (3.80-5.40) m/uL Hgb 14.9 (11.4-16.0) gm/dL Hct 46.7 H (34.0-46.0) % MCV 96.0 (80.0-100.0) fL MCH 30.6 (25.0-35.0) pg MCHC 31.9 (31.0-37.0) g/dL RDW 12.8 (11.5-15.5) % Plt Count 276 (150-450) k/uL MPV 8.5 Neutrophils % 58 % Lymphocytes % 32 % Monocytes % 5 % Eosinophils % 3 % Basophils % 1 % Neutrophils # 4.7 (1.3-7.7) k/uL Lymphocytes # 2.6 (1.0-4.8) k/uL Monocytes # 0.4 (0-1.0) k/uL Eosinophils # 0.2 (0-0.7) k/uL Basophils # 0.1 (0-0.2) k/uL PT 9.5 (9.0-12.0) sec INR 0.8 (<1.2) APTT 23.8 (22.0-30.0) sec Sodium 140 (137-145) mmol/L Potassium 3.9 (3.5-5.1) mmol/L Chloride 110 H (98-107) mmol/L Carbon Dioxide 26 (22-30) mmol/L Anion Gap 4 mmol/L BUN 9 (7-17) mg/dL Creatinine 0.60 (0.52-1.04) mg/dL Est GFR (CKD-EPI)AfAm >90 (>60 ml/min/1.73 sqM) Est GFR (CKD-EPI)NonAf >90 (>60 ml/min/1.73 sqM) Glucose 97 (74-99) mg/dL Calcium 8.8 (8.4-10.2) mg/dL - Radiology Data Radiology results: report reviewed No acute intracranial abnormality or gross active pain lesion and an unenhanced computed tomography scan. Disposition Clinical Impression: Transient vision disturbance of left eye Disposition: HOME SELF-CARE Condition: Good Instructions (If sedation given, give patient instructions): Blurred Vision (ED) Additional Instructions: Follow up with opthalmology tomorrow at 10:30 am. Return to ED if any alarming signs or symptoms occur. Is patient prescribed a controlled substance at d/c from ED?: No Referrals: Clayton Reid MD [Primary Care Provider] - 1-2 days Eduar Marcos MD [STAFF PHYSICIAN] - 1-2 days Time of Disposition: 15:46
[2021-12-28 12:32] LABS: Basophils # (A) 0.1 k/uL (0-0.2); Basophils % (A) 1 %; Eosinophils # (A) 0.2 k/uL (0-0.7); Eosinophils % (A) 3 %; HCT 46.7 % (34.0-46.0); HGB 14.9 gm/dL (11.4-16.0); Lymphocytes # (A) 2.6 k/uL (1.0-4.8); Lymphocytes % (A) 32 %; MCH 30.6 pg (25.0-35.0); MCHC 31.9 g/dL (31.0-37.0); Mean Platelet Volume 8.5; Monocytes # (A) 0.4 k/uL (0-1.0); Monocytes % (A) 5 %; Neutrophils # (A) 4.7 k/uL (1.3-7.7); Neutrophils % (A) 58 %; Platelet Count 276 k/uL (150-450); RBC 4.87 m/uL (3.80-5.40); RDW 12.8 % (11.5-15.5); WBC 8.1 k/uL (3.8-10.6)
[2021-12-28 12:38] LABS: African American GFR (CKD) >90 (>60 ml/min/1.73 sqM); Anion Gap 4 mmol/L; Blood Urea Nitrogen 9 mg/dL (7-17); Calcium 8.8 mg/dL (8.4-10.2); Carbon Dioxide 26 mmol/L (22-30); Chloride 110 mmol/L (98-107); Glucose 97 mg/dL (74-99); Non-African American GFR(CKD) >90 (>60 ml/min/1.73 sqM); Potassium 3.9 mmol/L (3.5-5.1); Sodium 140 mmol/L (137-145)
--- NOTE | 2021-12-28 12:45 | CT ---
EXAMINATION TYPE: CT brain wo con DATE OF EXAM: 12/28/2021 COMPARISON: None available HISTORY: Neuro deficits, headache, migraine with pain CT DLP: 1044.4 mGycm Automated exposure control for dose reduction was used. TECHNIQUE: CT scan of the brain is performed without IV contrast administration. FINDINGS: No acute intracranial hemorrhage. No gross acute cortical infarct. No midline shift, herniation or ve ntriculomegaly. Unremarkable maguire-white matter differentiation, basal cisterns, sella and CP angles. No gross space-o ccupying lesion, vasogenic edema or mass effect. Unremarkable orbits. Right maxillary sinus polyp/retention cyst. Mild mucosal thickening of the ethmo id air cells. Clear mastoid air cells. Unremarkable calvarial bones. IMPRESSION: No acute intracranial abnormality or gross space-occupying lesion by this nonenhanced CT scan.
[2021-12-28 12:58] LABS: INR 0.8 (<1.2); Partial Thromboplastin Time 23.8 sec (22.0-30.0); Prothrombin Time 9.5 sec (9.0-12.0)
[2021-12-28] MEDS ORDERED: RX INFO: IV CONTRAST WAS GIVEN 1 EACH MISC MISCELLANE PRN (13:28)
[2021-12-28 14:18] VITALS: BP 142/82; PULSE 75; RESP 12; TEMP 99.2
--- NOTE | 2021-12-28 14:23 | CT ---
EXAMINATION TYPE: CT brain w con DATE OF EXAM: 12/28/2021 COMPARISON: Nonenhanced CT performed earlier same day HISTORY: Venogram, visual loss, headache CT DLP: 1099.4 mGycm Automated exposure control for dose reduction was used. TECHNIQUE: CT scan of the brain is performed with IV contrast administration. Patient injected with 1 00 mL of Isovue 300. FINDINGS: No intracranial abnormal enhancement. Patent major intracranial venous sinuses. No convincing evidenc e of venous sinus thrombosis. Patent major intracranial arteries. No intracranial space-occupying lesion, vasogenic edema or mass effect. No midline shift or herniatio n. Right maxillary sinus polyp/retention cyst. No other significant change from the previous recent C T scan. IMPRESSION: No evidence of intracranial venous sinus thrombosis. Patent major intracranial vessels. No intracrani al abnormal enhancement. Considering the patient's presentation, further MRI assessment can be considered.
== END 2021-12-28 16:36 | disposition home or self-care (01) ==
LOC: EC 11:30
DX: H53.8 Other visual disturbances (principal); J44.9 Chronic obstructive pulmonary disease, unspecified; F41.9 Anxiety disorder, unspecified; F17.200 Nicotine dependence, unspecified, uncomplicated; F12.90 Cannabis use, unspecified, uncomplicated; Z91.040 Latex allergy status; Z88.1 Allergy status to other antibiotic agents; Z88.2 Allergy status to sulfonamides; Z88.5 Allergy status to narcotic agent; Z85.828 Personal history of other malignant neoplasm of skin; Z90.710 Acquired absence of both cervix and uterus
CPT/HCPCS: 99284; 96374; 96375; 36415; 80048; 85025; 85610; 85730; 70450; 70460; J1200; J1885; Q9967

== ENCOUNTER 2022-10-16 10:56 | Day surgery (SDC) | payer OTHER ==
[2022-10-12 14:37] VITALS: BMI 28.8
[~2022-10-16 10:56] MED LIST changes: +ACETAMINOPHEN TAB 500 MG TAB PO PRN; -DEXAMETHASONE SOD PHOSPHATE 10 MG/ML 1 ML VIAL IV ONE; +DEXAMETHASONE SOD PHOSPHATE 4 MG/ML 1 ML VIAL IV ONE; +HEPARIN SODIUM,PORCINE/PF 5,000 UNIT/0.5 ML SYRINGE SQ PRN; +LIDOCAINE 1% (10MG/ML) FOR IV START INTRADERMA PRN; -LIDOCAINE 1% 20 ML VIAL (10MG/ML) FOR IV START INTRADERMA PRN; -SCOPOLAMINE 1.5MG/72HR PATCH TRANSDERM ONE; -ceFAZolin IN SWFI 2 GM/20 ML SYRINGE IVP ONE
[2022-10-16 11:40] LABS: Glucose,Whole Blood 98 mg/dL (70-110)
[2022-10-16] MEDS ORDERED: MIDAZOLAM 2 MG/2 ML VIAL IV ONE (12:02)
[2022-10-16] MEDS ORDERED: MIDAZOLAM 2 MG/2 ML VIAL IVP ONE (12:43)
[2022-10-16] MEDS ORDERED: HYDROmorphone (PF) 1 MG/ML ONE (13:01)
[2022-10-16] MEDS ORDERED: KETOROLAC 15 MG/ML 1 ML VIAL ONE (13:01)
[2022-10-16] MEDS ORDERED: NEOSTIGMINE 1 MG/ML 10 ML VIAL ONE (13:01)
[2022-10-16] MEDS ORDERED: MIDAZOLAM 2 MG/2 ML VIAL ONE (13:01)
[2022-10-16] MEDS ORDERED: SUCCINYLCHOLINE CHLORIDE 200 MG/10 ML VIAL IV ONE (13:01)
[2022-10-16] MEDS ORDERED: LIDOCAINE 2% INJ 20 MG/ML (2 ML VIAL) ONE (13:01)
[2022-10-16] MEDS ORDERED: PROPOFOL 10 MG/ML 20 ML VIAL IV ONE (13:01)
[2022-10-16] MEDS ORDERED: fentaNYL (PF) 50 MCG/ML 2 ML AMP ONE (13:01)
[2022-10-16] MEDS ORDERED: GLYCOPYRROLATE 0.2 MG/ML 2 ML VIAL ONE (13:01)
[2022-10-16] MEDS ORDERED: ROCURONIUM 10 MG/ML (5 ML VIAL) IV ONE (13:01)
[2022-10-16] MEDS ORDERED: BUPIVACAIN-EPI 0.25%-1:200,000 30 ML VIAL SQ ONE (13:20)
--- NOTE | 2022-10-16 13:31 | P.OP ---
Date of Procedure: 10/16/22 Preoperative Diagnosis: Chronic cholecystitis Postoperative Diagnosis: Chronic cholecystitis Procedure(s) Performed: Laparoscopic cholecystectomy Anesthesia: MARCELO Surgeon: Deven Munson Estimated Blood Loss (ml): 5 Pathology: other (Gallbladder) Condition: stable Disposition: PACU Description of Procedure: The patient was placed on the operating table. The patient received a general endotracheal tube anesthesia. The patients abdomen was prepped and draped in the usual sterile fashion. Through an infraumbilical stab incision, the fascia of the anterior abdominal wall was grasped with a pair of Kochers and then the Veress needle was placed in the peritoneal cavity. Position of the Veress needle was confirmed with positive drop test. The abdomen was then insufflated. After adequate insufflation, the 10 mm trocar was placed in the peritoneal cavity. Following this the laparoscope was placed in the peritoneal cavity. The patient was placed in the head-up, right side up position and then a 5 mm trocar was placed in the right lateral and right subcostal position under direct visualization. A 8 mm trocar was placed in the epigastric position. The gallbladder was grasped in the fundus and infundibulum. Traction on the gallbladder was placed in the lateral and the cephalad positions. The triangle of Calot was visualized.. The cystic duct was bluntly dissected until the union of the cystic duct and common bile duct was seen. A critical view of safety was achieved. The cystic duct was then divided and sealed with the Harmonic scissors. A PDS Endoloop was then placed throughout the cystic duct stump. The cystic artery divided and sealed with the Harmonic scissors. The gallbladder was then removed from the liver bed using Harmonic scissors. The gallbladder was then extracted through the epigastric port site. Operative field was checked for any bleeding spots and Harmonic scissors was used to coagulate the liver bed. The abdomen was irrigated. The trocars were removed. The skin was closed using interrupted 3-0 Vicryl suture. Dermabond dressing were applied. The patient tolerated the procedure well.
[2022-10-16] MEDS ORDERED: LACTATED RINGERS 1,000 ML IV ONE (13:32)
[2022-10-16 14:16] VITALS: TEMP 97
[2022-10-16 15:07] VITALS: RESP 18
[2022-10-16 15:28] VITALS: BP 106/71; PULSE 67
== END 2022-10-16 15:42 | disposition home or self-care (01) ==
LOC: OR 10:56
PROVIDERS: ATTEND Surgery
DX: K81.1 Chronic cholecystitis (principal); I25.2 Old myocardial infarction; J44.9 Chronic obstructive pulmonary disease, unspecified; M48.00 Spinal stenosis, site unspecified; Z88.5 Allergy status to narcotic agent; Z88.1 Allergy status to other antibiotic agents; Z98.890 Other specified postprocedural states; Z90.89 Acquired absence of other organs; Z79.899 Other long term (current) drug therapy
CPT/HCPCS: 88304; 47562; J2250; J0330; J1100; J2710; J0690; J2405; J3010; J1170 ×2; J1885; J2704; J1644; J2001

== ENCOUNTER 2024-01-09 00:25 | Inpatient (IN) | payer OTHER ==
[2024-01-09 00:51] LABS: Basophils # (A) 0.1 k/uL (0-0.2); Basophils % (A) 1 %; Eosinophils # (A) 0.2 k/uL (0-0.7); Eosinophils % (A) 3 %; HCT 42.3 % (34.0-46.0); HGB 13.5 gm/dL (11.4-16.0); Lymphocytes % (A) 26 %; MCH 30.2 pg (25.0-35.0); MCHC 31.9 g/dL (31.0-37.0); MCV 94.7 fL (80.0-100.0); Mean Platelet Volume 8.8; Monocytes # (A) 0.4 k/uL (0-1.0); Monocytes % (A) 5 %; Neutrophils # (A) 4.9 k/uL (1.3-7.7); Neutrophils % (A) 64 %; Platelet Count 222 k/uL (150-450); RBC 4.47 m/uL (3.80-5.40); RDW 12.9 % (11.5-15.5); WBC 7.6 k/uL (3.8-10.6)
--- NOTE | 2024-01-09 00:57 | ED ---
General Adult HPI - General Chief complaint: Altered Mental Status Stated complaint: Altered Mental Status Time Seen by Provider: 01/09/24 00:31 Source: EMS Mode of arrival: EMS - History of Present Illness Initial comments: Andie is a 53yo F who presents to the ER via ambulance with a multitude of complaints. Patient reports that she was laying in her bed she began to feel very lightheaded and her vision began to darken and she described it as feeling like she could see ghosts. Patient states she started feel like she might have been drugged but she had not left her house or been around anybody today so knew that was not a possibility. Patient was concerned about how unwell she was feeling so she called EMS. EMS reported that they arrived the patient was maguire diaphoretic seemed to be somewhat altered but was noted to have bradycardia with a heart rate in the 30s. EMS loaded the patient up she was treated with 1 dose of atropine subsequently became quite tachycardic but her mental status improved. Patient complains of frequent episodes of right upper quadrant abdominal pain. Patient states she has been experiencing these since having her gallbladder out last year. Patient states he been coming and increasing frequency and intensity. Patient states these episodes of pain are in the right upper quadrant exactly where her gallbladder pain was. They last minutes and resolved without intervention. Patient states that she saw her primary care for this complaint last week and was advised to come to the ER but she had stuff to take care of at home so she knows not to come. - Related Data Home Medications Medication Instructions Recorded Confirmed Advair (Unknown Dose) 1 puff INHALATION DIRECTED 10/12/22 10/16/22 Albuterol Nebulizer 1 dose INHALATION DIRECTED PRN 10/12/22 10/16/22 Ergocalciferol [Vitamin D2 (1250 1,250 mcg PO WEEKLY 10/12/22 10/16/22 Mcg = 96758 Iu)] Ibuprofen [Motrin] 800 mg PO Q8H PRN 10/12/22 10/16/22 Multivitamin Prescription 1 tab PO DAILY 10/12/22 10/16/22 tiZANidine [Zanaflex] 4 mg PO Q8HR PRN 10/12/22 10/16/22 Previous Rx's Medication Instructions Recorded Acetaminophen Tab [Tylenol] 650 mg PO Q6H #30 tab 10/16/22 Docusate [Colace] 100 mg PO BID #20 capsule 10/16/22 Ibuprofen [Motrin] 600 mg PO Q6HR PRN #40 tab 10/16/22 oxyCODONE HCL [OxyIR] 5 mg PO Q6H PRN 3 Days #10 tab 10/16/22 Allergies Allergy/AdvReac Type Severity Reaction Status Date / Time latex Allergy Rash/Hives Verified 01/09/24 00:34 all over arms nickel Allergy Swelling Verified 01/09/24 00:34 @contact site oxycodone Allergy Rash/Hives Verified 01/09/24 00:34 sulfamethoxazole Allergy Blisters Verified 01/09/24 00:34 [From Bactrim] on hand trimethoprim [From Bactrim] Allergy Blisters Verified 01/09/24 00:34 on hand hydrocodone AdvReac Itching Verified 01/09/24 00:34 metal Allergy Swelling Uncoded 01/09/24 00:34 @contact site Review of Systems ROS Statement: Those systems with pertinent positive or pertinent negative responses have been documented in the HPI. ROS Other: All systems not noted in ROS Statement are negative. Past Medical History Past Medical History: COPD, GERD/Reflux, Hypertension, Musculoskeletal Disorder, Osteoarthritis (OA) Additional Past Medical History / Comment(s): IBS, INTERSTITIAL CYSTITIS. HIATAL HERNIA, STIFF PERSON SYNDROME., HEART PALPITATIONS, DIVERTICULITIS PER CT , SKIN CANCER., SPINAL STENOSIS, CHRONIC BACK PAIN, DR MONITORING BLOODPRESSURE- NO CURRENT MEDS, LOW BLOOD SUGAR-PT HAS MONITOR, History of Any Multi-Drug Resistant Organisms: None Reported Past Surgical History: Back Surgery, Hysterectomy, Tonsillectomy Additional Past Surgical History / Comment(s): Cystoscopy with Hydrodistension, LYMPH NODES REMOVED RT SIDE NECK, skin ca removal, spinal surgery (February 2022) Past Anesthesia/Blood Transfusion Reactions: Previous Problems w/ Anesthesia, Motion Sickness, Postoperative Nausea & Vomiting (PONV) Additional Past Anesthesia/Blood Transfusion Reaction / Comment(s): states heart rate dropped with spinal surgery in February 2022., ITCHY FROM SOME ANESTHETIC MEDS. Past Psychological History: No Psychological Hx Reported Smoking Status: Former smoker Past Alcohol Use History: None Reported Past Drug Use History: Marijuana - Past Family History Mother Family Medical History: No Reported History Daughter(s) Family Medical History: Blood Disorder Additional Family Medical History / Comment(s): FACTOR ELEVEN Father Family Medical History: Myocardial Infarction ([place]) Additional Family Medical History / Comment(s): father and his brother have cardiac hx. General Exam - General Exam Comments Initial Comments: Physical Exam GENERAL: Patient is well-developed and well-nourished. Patient is nontoxic and well- hydrated and is in no distress. HENT: Normocephalic, Atraumatic. EYES: PERRL, EOMI PULMONARY: Unlabored respirations. No audible rales rhonchi or wheezing was noted. CARDIOVASCULAR: There is a regular rate and rhythm without any murmurs gallops or rubs. ABDOMEN: Soft and nontender with normal bowel sounds. SKIN: Skin is clear with no lesions or rashes and otherwise unremarkable. : Deferred NEUROLOGIC: Patient is alert and oriented x3. Moving all extremities spontaneously MUSCULOSKELETAL: Normal extremities with adequate strength and full range of motion. No lower extremity swelling or edema. No calf tenderness. PSYCHIATRIC: Normal psychiatric evaluation. Course Vital Signs 01/09/24 01/09/24 01/09/24 00:27 00:40 01:30 Temperature 98.4 F Pulse Rate 99 90 64 Respiratory 18 18 18 Rate Blood Pressure 173/127 145/110 134/88 O2 Sat by Pulse 93 L 94 L 100 Oximetry 01/09/24 02:02 Temperature Pulse Rate 55 L Respiratory 18 Rate Blood Pressure 133/92 O2 Sat by Pulse 100 Oximetry EKG Findings - EKG Comments: EKG Findings:: EKG interpreted by me, EKG obtained at 12:29 AM, rate is 99 rhythm is sinus, AK 124 QRS 78 QTc 414 there are no acute ST elevations or diffuse ST depressions no evidence of acute infarction. Concerning for possible ischemia. Repeat EKG interpreted by me, repeat EKG obtained at 1:03 AM due to initial EKG being grossly abnormal. Repeat EKG with a rate of 77 rhythm is ag ain sinus, AK 154, QRS 97, QTc [address] elevations, less ST depressions no evidence of acute ischemia or infarction. Repeat EKG interpreted by me repeat EKG obtained due to change in rate, EKG obtained at 3:08 AM, rate is 48 rhythm sinus bradycardia with a prolonged QT, AK 136 QRS 86 QTc [address] elevations or depressions no evidence of ischemia or infarction Medical Decision Making - Medical Decision Making Was pt. sent in by a medical professional or institution ([facility] Montemay[facility], [employer] NET DEVELOPER, urgent care, hospital, or residential...) When possible be specific @ -No Did you speak to anyone other than the patient for history (EMS, parent, family, police, friend...)? What history was obtained from this source @ -EMS Did you review nursing and triage notes (agree or disagree)? Why? @ -I reviewed and agree with nursing and triage notes Were old charts reviewed (outside hosp., previous admission, EMS record, old EKG, old radiological studies, urgent care reports/EKG's, residential records)? Report findings @ -Yes previous admissions were reviewed Differential Diagnosis (chest pain, altered mental status, abdominal pain women, abdominal pain men, vaginal bleeding, weakness, fever, dyspnea, syncope, headache, dizziness, GI bleed, back pain, seizure, CVA, palpatations, mental health)? @ -Differential Palpitations Ventricular arrhythmias, atrial arrhythmias, myocardial infarction, anemia, thyrotoxicosis, electrolyte imbalance, hypokalemia, pulmonary embolism, pulmonary disease, drugs, alcohol, anxiety, stress.... This is not meant to be an all-inclusive list. Differential Altered Mental Status: Hypoglycemia, DKA, hypercapnia, ETOH, overdose, CO poisoning, trauma, myxedema coma, HTN encephalopathy, infection, encephalitis, psychosis, intercranial hemorrhage, hepatic encephalopathy, meningitis, CVA, this is not meant to be an all-inclusive list EKG interpreted by me (3pts min.). @ -As above X-rays interpreted by me (1pt min.). @ -No pneumothorax, no effusions no large focal consolidations no mediastinal w idening CT interpreted by me (1pt min.). @ -None done U/S interpreted by me (1pt. min.). @ -None done What testing was considered but not performed or refused? (CT, X-rays, U/S, labs)? Why? @ -None What meds were considered but not given or refused? Why? @ -Atropine was considered however patient's rate never became low enough to warrant treatment Did you discuss the management of the patient with other professionals (professionals i.e. [facility] Montemayor, [employer]EL NET DEVELOPER, lab, RT, psych nurse, protective services social worker, veterinary toxicologist, teacher, ship's officer, nurse outreach case manager)? Give summary @ -No Was smoking cessation discussed for >3mins.? @ -No Was critical care preformed (if so, how long)? @ -Yes, 35 minutes Were there social determinants of health that impacted care today? How? (Homelessness, low income, unemployed, alcoholism, drug addiction, transportation, low edu. Level, literacy, decrease access to med. care, long-term, r ehab)? @ -No Was there de-escalation of care discussed even if they declined (Discuss DNR or withdrawal of care, Hospice)? DNR status @ -No What co-morbidities impacted this encounter? (DM, HTN, Smoking, COPD, CAD, Cancer, CVA, ARF, Chemo, Hep., AIDS, mental health diagnosis, sleep apnea, morbid obesity)? @ -None Was patient admitted / discharged? Hospital course, mention meds given and route, prescriptions, significant lab abnormalities, going to OR and other pertinent info. @ -Admit The patient was seen and evaluated immediately upon arrival to the emergency department. Patient called EMS for feeling unwell and a sense of doom she was found to be diaphoretic and bradycardic. She was treated with atropine prior to arrival. Initial EKG is sinus tachycardia with ST depressions diffusely. Labs were obtained and aside from elevated TSH were relatively unremarkable. Troponin negative. Multiple repeat EKGs were obtained patient is bradycardic but asymptomatic here in the ER. In addition a CT of the abdomen was obtained due to patient's complaint of persistent right upper quadrant abdominal pain. Given the patient's bradycardia and symptoms we will plan to admit for observati on and evaluation by cardiology. In addition CT scan of the abdomen was obtained and consult to Dr. Brewer was placed. Dr. Mccall of [facility] accepts the admission. Undiagnosed new problem with uncertain prognosis? @ -No Drug Therapy requiring intensive monitoring for toxicity (Heparin, Nitro, Insulin, Cardizem)? @ -No Were any procedures done? @ -No Diagnosis/symptom? @ -Symptomatic bradycardia Acute, or Chronic, or Acute on Chronic? @ -Acute Uncomplicated (without systemic symptoms) or Complicated (systemic symptoms)? @ -Complicated Side effects of treatment? @ -No Exacerbation, Progression, or Severe Exacerbation? @ -No Poses a threat to life or bodily function? How? (Chest pain, [place], CO, pneumonia, PE, COPD, DKA, ARF, appy, cholecystitis, CVA, Diverticulitis, Homicidal, Suicidal, threat to staff... and all critical care pts) @ -Potentially - Lab Data Result diagrams: 01/09/24 00:37 01/09/24 00:37 Lab Results 01/09/24 01/09/24 01/09/24 Range/Units 00:37 00:37 00:37 WBC 7.6 (3.8-10.6) k/uL RBC 4.47 (3.80-5.40) m/uL Hgb 13.5 (11.4-16.0) gm/dL Hct 42.3 (34.0-46.0) % MCV 94.7 (80.0-100.0) fL MCH 30.2 (25.0-35.0) pg MCHC 31.9 (31.0-37.0) g/dL RDW 12.9 (11.5-15.5) % Plt Count 222 (150-450) k/uL MPV 8.8 Neutrophils % 64 % Lymphocytes % 26 % Monocytes % 5 % Eosinophils % 3 % Basophils % 1 % Neutrophils # 4.9 (1.3-7.7) k/uL Lymphocytes # 2.0 (1.0-4.8) k/uL Monocytes # 0.4 (0-1.0) k/uL Eosinophils # 0.2 (0-0.7) k/uL Basophils # 0.1 (0-0.2) k/uL PT 10.0 (10.0-12.5) sec INR 0.9 (<1.2) APTT 25.5 (22.0-30.0) sec Sodium 139 (137-145) mmol/L Potassium 3.5 (3.5-5.1) mmol/L Chloride 111 H (98-107) mmol/L Carbon Dioxide 21 L (22-30) mmol/L Anion Gap 7 mmol/L BUN 10 (7-17) mg/dL Creatinine 0.58 (0.52-1.04) mg/dL Est GFR (CKD-EPI)AfAm >90 (>60 ml/min/1.73 sqM) Est GFR (CKD-EPI)NonAf >90 (>60 ml/min/1.73 sqM) Glucose 122 H (74-99) mg/dL Calcium 8.6 (8.4-10.2) mg/dL Magnesium 1.6 (1.6-2.3) mg/dL Total Bilirubin 0.3 (0.2-1.3) mg/dL AST 31 (14-36) U/L ALT 19 (4-34) U/L Alkaline Phosphatase 72 (38-126) U/L Troponin I (0.000-0.034) ng/mL NT-Pro-B Natriuret Pep 138 pg/mL Total Protein 6.2 L (6.3-8.2) g/dL Albumin 3.7 (3.5-5.0) g/dL Lipase (23-300) U/L TSH 16.600 H (0.465-4.680) mIU/L Free T4 1.32 (0.78-2.19) ng/dL 01/09/24 01/09/24 Range/Units 00:37 00:42 WBC (3.8-10.6) k/uL RBC (3.80-5.40) m/uL Hgb (11.4-16.0) gm/dL Hct (34.0-46.0) % MCV (80.0-100.0) fL MCH (25.0-35.0) pg MCHC (31.0-37.0) g/dL RDW (11.5-15.5) % Plt Count (150-450) k/uL MPV Neutrophils % % Lymphocytes % % Monocytes % % Eosinophils % % Basophils % % Neutrophils # (1.3-7.7) k/uL Lymphocytes # (1.0-4.8) k/uL Monocytes # (0-1.0) k/uL Eosinophils # (0-0.7) k/uL Basophils # (0-0.2) k/uL PT (10.0-12.5) sec INR (<1.2) APTT (22.0-30.0) sec Sodium (137-145) mmol/L Potassium (3.5-5.1) mmol/L Chloride (98-107) mmol/L Carbon Dioxide (22-30) mmol/L Anion Gap mmol/L BUN (7-17) mg/dL Creatinine (0.52-1.04) mg/dL Est GFR (CKD-EPI)AfAm (>60 ml/min/1.73 sqM) Est GFR (CKD-EPI)NonAf (>60 ml/min/1.73 sqM) Glucose (74-99) mg/dL Calcium (8.4-10.2) mg/dL Magnesium (1.6-2.3) mg/dL Total Bilirubin (0.2-1.3) mg/dL AST (14-36) U/L ALT (4-34) U/L Alkaline Phosphatase (38-126) U/L Troponin I <0.012 (0.000-0.034) ng/mL NT-Pro-B Natriuret Pep pg/mL Total Protein (6.3-8.2) g/dL Albumin (3.5-5.0) g/dL Lipase 46 (23-300) U/L TSH (0.465-4.680) mIU/L Free T4 (0.78-2.19) ng/dL Disposition Clinical Impression: Symptomatic sinus bradycardia, Prolonged QT interval, Near syncope Disposition: ADMITTED IP TO THIS HOSP Condition: Serious Is patient prescribed a controlled substance at d/c from ED?: No Referrals: None,Stated [Primary Care Provider] - 1-2 days
[2024-01-09 01:21] LABS: INR 0.9 (<1.2); Partial Thromboplastin Time 25.5 sec (22.0-30.0)
[2024-01-09 02:00] LABS: ALT 19 U/L (4-34); AST 31 U/L (14-36); African American GFR (CKD) >90 (>60 ml/min/1.73 sqM); Albumin 3.7 g/dL (3.5-5.0); Alkaline Phosphatase 72 U/L (38-126); Anion Gap 7 mmol/L; Blood Urea Nitrogen 10 mg/dL (7-17); Calcium 8.6 mg/dL (8.4-10.2); Carbon Dioxide 21 mmol/L (22-30); Chloride 111 mmol/L (98-107); Glucose 122 mg/dL (74-99); Magnesium 1.6 mg/dL (1.6-2.3); Non-African American GFR(CKD) >90 (>60 ml/min/1.73 sqM); Potassium 3.5 mmol/L (3.5-5.1); Sodium 139 mmol/L (137-145); Total Bilirubin 0.3 mg/dL (0.2-1.3); Total Protein 6.2 g/dL (6.3-8.2)
--- NOTE | 2024-01-09 02:08 | XR ---
EXAM: XR Chest, 2 Views CLINICAL HISTORY: ITS.REASON XR Reason: Chest Pain TECHNIQUE: Frontal and lateral views of the chest. COMPARISON: No relevant prior studies available. FINDINGS: Lungs: Mild to moderate peribronchial thickening of the central and lower lobe bronchi with increased interstitial opacities in the lower lobes and a small patchy opacity at the left lung base. No consolidation. Pleural space: There is blunting of the left costophrenic angle. No pneumothorax. Heart: Unremarkable. No cardiomegaly. Mediastinum: Unremarkable. Normal mediastinal contour. Bones/joints: Unremarkable. No acute fracture. IMPRESSION: Bronchitis with pneumonitis and small consolidation at the left lung base. <MYCVCSECTION> Communications: 01/09/24 02:21 Verify Receipt Verified receipt with GABRIEL Ellison in ER for Dr. Song on 01/08 02:24 (-04:00)
[2024-01-09 02:09] LABS: NT-Pro-B-Type Natriuretic Pept 138 pg/mL
[2024-01-09 03:30] LABS: T4, Free (Free Thyroxine) 1.32 ng/dL (0.78-2.19)
[2024-01-09] MEDS ORDERED: NALOXONE 0.4 MG/ML 1 ML VIAL IV PRN (03:30)
--- NOTE | 2024-01-09 06:02 | P.HPIM ---
History of Present Illness H&P Date: 01/09/24 Chief Complaint: Abdominal pain 53-year-old female with no significant past medical history Patient coming in complaining of right upper quadrant abdominal pain that is been going on for couple days. She reports that she had her gallbladder removed about a year ago since then she has been having episodes of discomfort in the same area however the pain got unbearable over the past couple days denies any associated nausea vomiting or GI bleeding denies any fevers or chills denies any changes in bowel or urinary habits she has been following up on this matter with her doctor for a while now. Patient does admit to tobacco smoking she has smoked 1 pack over the past 6 months denies any illicit drugs or heavy alcohol she does admit to marijuana ED staff reported that patient was having some altered mental status at home therefore EMS was notified upon their arrival they found her to be bradycardic for which atropine was given patient continued to have episodes of some bradycardia where she dips down to the 40s in the ER. Currently patient feels fine and back to normal. She described an episode at home where she started hallucinating visually seeing things she denies any alcohol or illicit drugs she reports that she she has not been out of her house for the past week He claims that this has never happened to her before review of systems Pertinent positives as noted in HPI. All other systems were reviewed and are negative on exam Constitutional: No acute distress, conversant, pleasant Eyes: Anicteric sclerae, moist conjunctiva, Pupils equal round reactive to light ENMT: NC/AT Oropharynx clear, no erythema, or exudates Neck: Supple, no masses, or JVD No carotid bruits No thyromegaly Lungs: Clear to auscultation Clear to percussion Normal respiratory effort, no accessory muscle use Cardiovascular: Heart regular in rate and rhythm, No murmurs, gallops, or rubs No peripheral edema Abdominal: Soft Nontender, no guarding, rebound or rigidity Abdomen moving with respiration Normoactive bowel sounds No hepatomegaly, No splenomegaly Extremities: No digital cyanosis No clubbing Pedal pulses intact and symmetrical Radial pulses intact and symmetrical No calf tenderness Psychiatric: Alert and oriented to person, place and time Appropriate affect fair judgement Neuro Muscles Strength 5/5 in all 4 extremities Sensation to light touch grossly present throughout Cranial nerves II-XII grossly intact Past Medical History Past Medical History: COPD, GERD/Reflux, Hypertension, Musculoskeletal Disorder, Osteoarthritis (OA) Additional Past Medical History / Comment(s): IBS, INTERSTITIAL CYSTITIS. HIATAL HERNIA, STIFF PERSON SYNDROME., HEART PALPITATIONS, DIVERTICULITIS PER CT, SKIN CANCER., SPINAL STENOSIS, CHRONIC BACK PAIN, DR MONITORING BLOODPRESSURE-NO CURRENT MEDS, LOW BLOOD SUGAR-PT HAS MONITOR, History of Any Multi-Drug Resistant Organisms: None Reported Past Surgical History: Back Surgery, Hysterectomy, Tonsillectomy Additional Past Surgical History / Comment(s): Cystoscopy with Hydrodistension, LYMPH NODES REMOVED RT SIDE NECK, skin ca removal, spinal surgery (February 2022) Past Anesthesia/Blood Transfusion Reactions: Previous Problems w/ Anesthesia, Motion Sickness, Postoperative Nausea & Vomiting (PONV) Additional Past Anesthesia/Blood Transfusion Reaction / Comment(s): states heart rate dropped with spinal surgery in February 2022., ITCHY FROM SOME ANESTHETIC MEDS. Past Psychological History: No Psychological Hx Reported Smoking Status: Former smoker Past Alcohol Use History: None Reported Past Drug Use History: Marijuana - Past Family History Mother Family Medical History: No Reported History Daughter(s) Family Medical History: Blood Disorder Additional Family Medical History / Comment(s): FACTOR ELEVEN Father Family Medical History: Myocardial Infarction ([place]) Additional Family Medical History / Comment(s): father and his brother have cardiac hx. Medications and Allergies Home Medications Medication Instructions Recorded Confirmed Type Advair (Unknown Dose) 1 puff INHALATION DIRECTED 10/12/22 10/16/22 History Albuterol Nebulizer 1 dose INHALATION DIRECTED PRN 10/12/22 10/16/22 History Ergocalciferol [Vitamin D2 (1250 1,250 mcg PO WEEKLY 10/12/22 10/16/22 History Mcg = 52557 Iu)] Ibuprofen [Motrin] 800 mg PO Q8H PRN 10/12/22 10/16/22 History Multivitamin Prescription 1 tab PO DAILY 10/12/22 10/16/22 History tiZANidine [Zanaflex] 4 mg PO Q8HR PRN 10/12/22 10/16/22 History Acetaminophen Tab [Tylenol] 650 mg PO Q6H #30 tab 10/16/22 Rx Docusate [Colace] 100 mg PO BID #20 capsule 10/16/22 Rx Ibuprofen [Motrin] 600 mg PO Q6HR PRN #40 tab 10/16/22 Rx oxyCODONE HCL [OxyIR] 5 mg PO Q6H PRN 3 Days #10 tab 10/16/22 Rx Allergies Allergy/AdvReac Type Severity Reaction Status Date / Time latex Allergy Rash/Hives Verified 01/09/24 00:34 all over arms nickel Allergy Swelling Verified 01/09/24 00:34 @contact site oxycodone Allergy Rash/Hives Verified 01/09/24 00:34 sulfamethoxazole Allergy Blisters Verified 01/09/24 00:34 [From Bactrim] on hand trimethoprim [From Bactrim] Allergy Blisters Verified 01/09/24 00:34 on hand hydrocodone AdvReac Itching Verified 01/09/24 00:34 metal Allergy Swelling Uncoded 01/09/24 00:34 @contact site Physical Exam Vitals: Vital Signs Temp Pulse Resp BP Pulse Ox 01/09/24 04:00 48 L 18 126/76 100 01/09/24 02:02 55 L 18 133/92 100 01/09/24 01:30 64 18 134/88 100 01/09/24 00:40 90 18 145/110 94 L 01/09/24 00:27 98.4 F 99 18 173/127 93 L Intake and Output 01/08/24 01/08/24 01/09/24 14:59 22:59 06:59 Other: Weight 79.107 kg Results CBC & Chem 7: 01/09/24 00:37 01/09/24 00:37 Labs: Abnormal Lab Results - Last 24 Hours (Table) 01/09/24 Range/Units 00:37 Chloride 111 H (98-107) mmol/L Carbon Dioxide 21 L (22-30) mmol/L Glucose 122 H (74-99) mg/dL Total Protein 6.2 L (6.3-8.2) g/dL TSH 16.600 H (0.465-4.680) mIU/L Assessment and Plan Assessment: 54-year-old female no significant past medical history coming in for right upper quadrant abdominal pain over the past 2 days with some episodes of hallucinations and confusion I discussed case with ED doctor and accepted the admission for right upper quadrant abdominal pain and bradycardia for further evaluation with anticipated length of stay less than 2 midnights Right upper quadrant abdominal pain History of cholecystectomy 1 year ago Pending CAT scan of the abdomen Pain control with opiates Supportive care IV fluid hydration normal saline 75 cc/h Pain control with opiates Tylenol for fever Sinus bradycardia Rule out underlying cardiac disease Rule out underlying metabolic derangements TSH is elevated 19 await free T4 Cardiac monitoring Cardiology consult Cardiac enzymes are negative Full code DVT prophylaxis heparin subcu 3 times daily GI prophylaxis Protonix 40 mg p.o. daily
[2024-01-09] MEDS: ACETAMINOPHEN TAB 325 MG TAB PO SCH (06:35)
[2024-01-09] MEDS: SODIUM CHLORIDE 0.9% 1,000 ML IV SCH ×2 (06:40→14:48)
--- NOTE | 2024-01-09 07:13 | CT ---
EXAMINATION TYPE: CT abdomen pelvis w con DATE OF EXAM: 01/09/2024 COMPARISON: 12/05/2019 INDICATION: Patient brought to facility with complaints of low heart rate and altered mental status. DLP: 1025.6 mGycm, Automated exposure control for dose reduction was used. CONTRAST: 100 mL of Isovue 300. Study performed without Oral Contrast TECHNIQUE: Axial images were obtained from above the diaphragm to the pubic rami in the axial plane a t 5 mm thick sections. Reconstructed images are reviewed on the computer in the coronal plane. FINDINGS: Limited CT sections are obtained the lung bases. There is some minimal infiltrate along the posterio r medial right lung base. Correlate for some atelectasis. CT ABDOMEN: Liver: Normal Spleen: Normal Pancreas: Normal Adrenal glands: The adrenal glands are normal. Gallbladder: Appears small but present. There is a punctate calcification or surgical clip near the f undus this is an interval change. Correlate with the surgical history. This appears different than t he previous visualization of the gallbladder, consider common bile duct dilatation within the differe ntial. Kidneys: No masses are evident. No hydronephrosis is present. No cysts are present. Delayed images were obtained through the kidneys, which remain unremarkable. Aorta: Vascular calcification is within the aorta. Inferior vena cava: Normal. CT PELVIS: Loops of bowel within the abdomen and pelvis are normal. Couple of diverticuli may be present. The study is without oral contrast limiting bowel evaluation. Appendix: Not visualized. No dilated tubular structure or inflammatory change is evident. Urinary bladder: Normal. Genitourinary structures: Uterus and ovaries are not identified. Osseous structures: No suspicious lytic or sclerotic lesions. There is a pin within the left sacroili ac joint. Degenerative changes post vertebral plasty changes at L5 are present IMPRESSION: 1. Minimal infiltrate posterior medial right lung base. Correlate for atelectasis. Small infectious etiology could be considered. 2. There is a punctate hyperdensity at the expected fundus of the gallbladder. This is unclear whethe r this is a calcification or surgical clip. Correlate with surgical history. If the gallbladder is fleming rgically absent, the common bile duct node be considered dilated.
[2024-01-09] MEDS ORDERED: HEPARIN SODIUM 1,000 UN/ML (10ML VL) IV PRN (08:30)
[2024-01-09] MEDS: PANTOPRAZOLE 40 MG TABLET PO SCH (08:54)
[2024-01-09] MEDS: HEPARIN SODIUM,PORCINE 5,000 UNIT/ML 1 ML VIAL SQ SCH ×2 (08:55→17:04)
[2024-01-09] MEDS: HEPARIN SODIUM 1,000 UN/ML (10ML VL) IV ONE (09:04)
[2024-01-09] MEDS: HEPARIN SOD,PORK IN 0.45% NACL 25,000 UNIT in 0.45% NACL 1 250ML.BAG IV SCH (09:05)
[2024-01-09] MEDS: ASPIRIN 81 MG PO SCH (09:09)
[2024-01-09] MEDS ORDERED: ALPRAZolam 0.25 MG TAB PO PRN (09:46)
[2024-01-09] MEDS ORDERED: ALPRAZolam 0.5 MG TAB PO PRN (09:46)
[2024-01-09] MEDS: ATORVASTATIN 80 MG TAB PO STA (10:03)
[2024-01-09] MEDS ORDERED: LIDOCAINE 1% INJ 10MG/ML (20 ML MDV) ONE (10:13)
[2024-01-09] MEDS ORDERED: fentaNYL (PF) 50 MCG/ML 2 ML AMP ONE (10:13)
[2024-01-09] MEDS ORDERED: HEPARIN SODIUM 1,000 UN/ML (10ML VL) ONE (10:13)
[2024-01-09] MEDS ORDERED: VERAPAMIL 2.5 MG/ML 2 ML AMP ONE (10:13)
[2024-01-09] MEDS ORDERED: ASPIRIN 81 MG ONE (10:28)
[2024-01-09] MEDS: ASPIRIN 81 MG PO ONE (10:30)
[2024-01-09] MEDS: SODIUM CHLORIDE 0.9% 1,000 ML IV ONE (10:31)
[2024-01-09] MEDS: fentaNYL (PF) 50 MCG/ML 2 ML AMP IVP ONE (10:49)
[2024-01-09] MEDS: MIDAZOLAM 2 MG/2 ML VIAL IVP ONE (10:50)
[2024-01-09] MEDS: LIDOCAINE 1% INJ 10MG/ML (20 ML MDV) SQ ONE (10:52)
[2024-01-09] MEDS: VERAPAMIL SYRINGE (5 MG/10 ML) INTRAARTER ONE (11:04)
[2024-01-09] MEDS: HEPARIN SODIUM 1,000 UN/ML (10ML VL) IVP ONE (11:04)
[2024-01-09] MEDS: IOPAMIDOL-370 100ML BTL INJ ONE (11:16)
--- NOTE | 2024-01-09 11:21 | P.CRDCN ---
History of Present Illness History of present illness: HISTORY OF PRESENT ILLNESS: This is a 53-year-old female with a past medical history significant for COPD, GERD, former nicotine dependence. Patient does not follow with a power and recovery supervisor. We have been asked to see the patient in consultation for bradycardia. Patient examined at the bedside in the emergency room. Patient states ever since she had her gallbladder removed she has been having chronic pain in her right upper quadrant. She states yesterday the pain became significantly worse. She states that she had vomited several times. She states that she was diaphoretic. She states that her vision started to become blurred and she felt like she was going to pass out. She also reports that she saw people in her apartment although she knew that she was hallucinating that no one was really there. Patient also reports she has been having discomfort in her chest and left arm down to her fingertips over the past few weeks. Patient states she has smoked a total of 1 pack of cigarettes in the last 6 months. She reports a family history of coronary artery disease and states her mom at the age of 54 from a heart attack and her dad in 2019 from a heart attack. Telemetry tracings from EMS reviewed. Patient did have episodes of bradycardia down into the 30s. She is maintaining sinus mechanism this morning with no significant bradycardia. She currently denies chest pain or pressure. She denies shortness of breath. DIAGNOSTICS: - EKG reveals sinus mechanism with diffuse mild ST depression. Repeat EKGs reveal sinus mechanism with resolution of ST depression - Chest xray bronchitis with pneumonitis and small consolidation at left lung base. -CT abdomen pelvis: Minimal infiltrate posterior medial right lung base. Correlate for atelectasis. Small infectious etiology could be considered. There is a punctate hyperdensity at the expected fundus of the gallbladder. This is unclear whether this is a calcification or surgical clip. - Laboratory data: WBC 7.6. Hemoglobin 13.5. Platelet count 222. Sodium 139. Potassium 3.5. BUN 10. Creatinine 0.58. Magnesium 1.6. Troponin negative x 1. TSH 16.6. Free T41.32. - Current home cardiac medications include none. REVIEW OF SYSTEMS: At the time of my exam: CONSTITUTIONAL: Denies fever or chills. HEENT: Denies blurred vision, vision changes, or eye pain. Denies hemoptysis CARDIOVASCULAR: Denies chest pain. Denies orthopnea. Denies PND. Denies palpitations RESPIRATORY: Denies shortness of breath. GASTROINTESTINAL: Denies abdominal pain. Denies nausea or vomiting. HEMATOLOGIC: Denies bleeding disorders. GENITOURINARY: Denies any blood in urine. SKIN: Denies pruitis. Denies rash. PHYSICAL EXAM: VITAL SIGNS: Reviewed. GENERAL: Well-developed in no acute distress. HEENT: Head is normocephalic. Pupils are equal, round. Sclerae anicteric. Mucous membranes of the mouth are moist. Neck supple. No JVD or thyromegaly LUNGS: Respirations even and unlabored. Lungs essentially clear to auscultation bilaterally. HEART: Regular rate and rhythm. S1 and S2 heard. ABDOMEN: Soft. Nondistended. Nontender. EXTREMITIES: Normal range of motion. No clubbing or cyanosis. Peripheral pulses intact. No lower extremity edema NEUROLOGIC: Awake and alert. Oriented x 3. ASSESSMENT: Symptomatic bradycardia Chest pain with abnormal EKG revealing diffuse ST depression, concerning for CAD Chronic right upper quadrant abdominal pain Status post laparoscopic cholecystectomy 10/2022 Abnormal TSH COPD GERD Former nicotine dependence Family history of coronary artery disease PLAN: Obtain 2D echo to assess cardiac structure and function Begin IV heparin Trend troponins Add aspirin 81 mg daily and atorvastatin 40 mg at night Continue telemetry monitoring. No plans for PPM at this time Avoid any AV lacie blocking agents NPO Patient to undergo cardiac cath today with Dr. Ley Further recommendations pending patient course Nurse practitioner note has been reviewed by physician. Signing provider agrees with the documented findings, assessment, and plan of care documented by REFRACTORY REPAIRER as a scribe. Past Medical History Past Medical History: COPD, GERD/Reflux, Hypertension, Musculoskeletal Disorder, Osteoarthritis (OA) Additional Past Medical History / Comment(s): IBS, INTERSTITIAL CYSTITIS. HIATAL HERNIA, STIFF PERSON SYNDROME., HEART PALPITATIONS, DIVERTICULITIS PER CT, SKIN CANCER., SPINAL STENOSIS, CHRONIC BACK PAIN, DR MONITORING BLOODPRESSURE-NO CURRENT MEDS, LOW BLOOD SUGAR-PT HAS MONITOR, History of Any Multi-Drug Resistant Organisms: None Reported Past Surgical History: Back Surgery, Hysterectomy, Tonsillectomy Additional Past Surgical History / Comment(s): Cystoscopy with Hydrodistension, LYMPH NODES REMOVED RT SIDE NECK, skin ca removal, spinal surgery (February 2022) Past Anesthesia/Blood Transfusion Reactions: Previous Problems w/ Anesthesia, Motion Sickness, Postoperative Nausea & Vomiting (PONV) Additional Past Anesthesia/Blood Transfusion Reaction / Comment(s): states heart rate dropped with spinal surgery in February 2022., ITCHY FROM SOME ANESTHETIC MEDS. Past Psychological History: No Psychological Hx Reported Smoking Status: Former smoker Past Alcohol Use History: None Reported Past Drug Use History: Marijuana - Past Family History Mother Family Medical History: No Reported History Daughter(s) Family Medical History: Blood Disorder Additional Family Medical History / Comment(s): FACTOR ELEVEN Father Family Medical History: Myocardial Infarction ([place]) Additional Family Medical History / Comment(s): father and his brother have cardiac hx. Medications and Allergies Home Medications Medication Instructions Recorded Confirmed Type Ergocalciferol [Vitamin D2 (1250 1,250 mcg PO WEEKLY 10/12/22 01/09/24 History Mcg = 95917 Iu)] Ibuprofen [Motrin] 800 mg PO Q8H PRN 10/12/22 01/09/24 History tiZANidine [Zanaflex] 4 mg PO TID 10/12/22 01/09/24 History Pantoprazole Sodium [Protonix] 40 mg PO DAILY 01/09/24 01/09/24 History Tab-A-Negro 400mcg 1 tab PO DAILY 01/09/24 01/09/24 History Allergies Allergy/AdvReac Type Severity Reaction Status Date / Time latex Allergy Rash/Hives Verified 01/09/24 07:53 all over arms morphine Allergy Nausea & Verified 01/09/24 10:04 Vomiting nickel Allergy Swelling Verified 01/09/24 07:53 @contact site oxycodone Allergy Rash/Hives Verified 01/09/24 07:53 sulfamethoxazole Allergy Blisters Verified 01/09/24 07:53 [From Bactrim] on hand trimethoprim [From Bactrim] Allergy Blisters Verified 01/09/24 07:53 on hand hydrocodone AdvReac Itching Verified 01/09/24 07:53 metal Allergy Swelling Uncoded 01/09/24 07:53 @contact site Physical Exam Vitals: Vital Signs Temp Pulse Resp BP Pulse Ox 01/09/24 07:34 50 L 16 89/57 92 L 01/09/24 06:00 52 L 18 99/43 97 01/09/24 04:00 48 L 18 126/76 100 01/09/24 02:02 55 L 18 133/92 100 01/09/24 01:30 64 18 134/88 100 01/09/24 00:40 90 18 145/110 94 L 01/09/24 00:27 98.4 F 99 18 173/127 93 L Intake and Output 01/08/24 01/09/24 01/09/24 22:59 06:59 14:59 Other: Weight 79.107 kg Results 01/09/24 00:37 01/09/24 00:37 Cardiac Enzymes 01/09/24 01/09/24 Range/Units 00:37 00:37 AST 31 (14-36) U/L Troponin I <0.012 (0.000-0.034) ng/mL Coagulation 01/09/24 Range/Units 00:37 PT 10.0 (10.0-12.5) sec APTT 25.5 (22.0-30.0) sec CBC 01/09/24 Range/Units 00:37 WBC 7.6 (3.8-10.6) k/uL RBC 4.47 (3.80-5.40) m/uL Hgb 13.5 (11.4-16.0) gm/dL Hct 42.3 (34.0-46.0) % Plt Count 222 (150-450) k/uL Comprehensive Metabolic Panel 01/09/24 Range/Units 00:37 Sodium 139 (137-145) mmol/L Potassium 3.5 (3.5-5.1) mmol/L Chloride 111 H (98-107) mmol/L Carbon Dioxide 21 L (22-30) mmol/L BUN 10 (7-17) mg/dL Creatinine 0.58 (0.52-1.04) mg/dL Glucose 122 H (74-99) mg/dL Calcium 8.6 (8.4-10.2) mg/dL AST 31 (14-36) U/L ALT 19 (4-34) U/L Alkaline Phosphatase 72 (38-126) U/L Total Protein 6.2 L (6.3-8.2) g/dL Albumin 3.7 (3.5-5.0) g/dL Current Medications Generic Name Dose Route Start Last Admin Trade Name Freq PRN Reason Stop Dose Admin Acetaminophen 650 mg 01/09/24 06:00 01/09/24 06:35 Acetaminophen Tab 325 Mg Tab PO Not Given Q6H SHY Heparin Sodium (Porcine) 5,000 unit 01/09/24 08:00 Heparin Sodium,Porcine 5,000 Unit/Ml 1 Ml Vial SQ Q8HR SHY Sodium Chloride 1,000 mls @ 130 mls/hr 01/09/24 06:15 01/09/24 06:40 Saline 0.9% IV 130 mls/hr .Q7H42M SHY Administration Naloxone HCl 0.2 mg 01/09/24 03:30 Naloxone 0.4 Mg/Ml 1 Ml Vial IV Q2M PRN Opioid Reversal Pantoprazole Sodium 40 mg 01/09/24 07:30 Pantoprazole 40 Mg Tablet PO AC-BRKFST [facility] Intake and Output 01/08/24 01/09/24 01/09/24 22:59 06:59 14:59 Other: Weight 79.107 kg 01/09/24 00:37 01/09/24 00:37
[2024-01-09] MEDS ORDERED: RX INFO: IV CONTRAST WAS GIVEN 1 EACH MISC MISCELLANE PRN (12:10)
--- NOTE | 2024-01-09 12:33 | CA ---
Transthoracic Echo Report Name: Andie Davila Age: 53 Gender: F : 1970 Exam Date: 01/09/2024 09:18 Exam Location: [facility] Ht (in): 64 Wt (lb): 174 Ordering Physician: Nery Henson Attending/Referring Phys: [id number], [employer] Dorina Ugarte RCS Procedure CPT: Indications: LV function, abnormal EKG Cardiac Hx: Technical Quality: Fair Contrast 1: Total Dose (mL): Contrast 2: Total Dose (mL): MEASUREMENTS (Male / Female) Normal Values 2D ECHO LV Diastolic Diameter PLAX 5.5 cm 4.2 - 5.9 / 3.9 - 5.3 cm LV Systolic Diameter PLAX 4.0 cm IVS Diastolic Thickness 0.6 cm 0.6 - 1.0 / 0.6 - 0.9 cm LVPW Diastolic Thickness 0.7 cm 0.6 - 1.0 / 0.6 - 0.9 cm LV Relative Wall Thickness 0.2 RV Internal Dim ED PLAX 3.2 cm LVOT Diameter 1.9 cm LV Diastolic Volume MOD BP 132.0 cm??? 67 - 155 / 56 - 104 cm??? LV Systolic Volume MOD BP 48.5 cm??? 22 - 58 / 19 - 49 cm??? LV Ejection Fraction MOD BP 63.3 % >= 55 % LV Cardiac Index MOD BP 2402.4 cm???/min???m??? LV Diastolic Volume MOD 4C 121.1 cm??? LV Systolic Volume MOD 4C 45.7 cm??? LV Ejection Fraction MOD 4C 62.3 % LV Cardiac Index MOD 4C 2168.0 cm???/min???m??? LV Diastolic Length 4C 7.6 cm LV Systolic Length 4C 6.0 cm LV Diastolic Volume MOD 2C 132.8 cm??? LV Systolic Volume MOD 2C 47.1 cm??? LV Ejection Fraction MOD 2C 64.6 % LV Cardiac Index MOD 2C 2465.8 cm???/min???m??? LV Diastolic Length 2C 8.3 cm LV Systolic Length 2C 6.6 cm LA Volume 54.0 cm??? 18 - 58 / 22 - 52 cm??? LA Volume Index 28.2 cm???/m??? 16 - 28 cm???/m??? Ascending Aorta Diameter 2.6 cm DOPPLER AV Peak Velocity 180.5 cm/s AV Peak Gradient 13.0 mmHg AV Mean Velocity 111.6 cm/s AV Mean Gradient 5.9 mmHg AV Velocity Time Integral 39.9 cm LVOT Peak Velocity 109.4 cm/s LVOT Peak Gradient 4.8 mmHg LVOT Velocity Time Integral 23.1 cm LVOT Stroke Volume 67.7 cm??? LVOT Stroke Volume Index 36.7 ml/m??? LVOT Cardiac Index 1947.7 cm???/min???m??? AV Area Cont Eq vti 1.7 cm??? AV Area Cont Eq pk 1.8 cm??? Mitral E Point Velocity 84.6 cm/s Mitral A Point Velocity 51.0 cm/s Mitral E to A Ratio 1.7 MV Deceleration Time 167.8 ms MV E' Velocity 6.0 cm/s Mitral E to MV E' Ratio 14.2 TR Peak Velocity 281.3 cm/s TR Peak Gradient 31.6 mmHg Right Ventricular Systolic Press 36.6 mmHg PV Peak Velocity 89.3 cm/s PV Peak Gradient 3.2 mmHg FINDINGS Left Ventricle Left ventricular ejection fraction is estimated at 60-65 %. Mildly increased left ventricular diastolic diameter. Left ventricular wall thickness normal. No obvious regional wall motion abnormalities. Right Ventricle Normal right ventricular size and function. Right ventricular systolic pressure borderline elevated. Right Atrium Normal right atrial size. Left Atrium Mildly increased left atrial volume. Mitral Valve Structurally normal mitral valve. No evidence for mitral valve prolapse. No mitral stenosis. Trace mitral regurgitation. Aortic Valve Trileaflet aortic valve. No aortic stenosis. No aortic regurgitation. Tricuspid Valve Structurally normal tricuspid valve. No tricuspid stenosis. Trace tricuspid regurgitation. Pulmonic Valve Structurally normal pulmonic valve. No pulmonic regurgitation. No pulmonic stenosis. Pericardium No pericardial effusion. Aorta Normal size aortic root and proximal ascending aorta. CONCLUSIONS Left ventricular ejection fraction 60-65% Trace mitral regurgitation Trace tricuspid regurgitation No pericardial effusion Previewed by: Dr. Sharan River DO (Electronically Signed) Final Date: 09 January 2024 12:32
--- NOTE | 2024-01-09 13:08 | P.GSCN ---
History of Present Illness Consult date: 01/09/24 History of present illness: CHIEF COMPLAINT: Lightheaded HISTORY OF PRESENT ILLNESS: This is a 53-year-old female who came in via ambulance due to feeling lightheaded and having hallucinations. She was found to be bradycardic she has had heart rate into the 30s. Patient also has had chronic right upper quadrant abdominal pain since her laparoscopic cholecystectomy in October 2022. Patient reports that she is continue to have this intermittent pain and initially thought that it had been related to her back surgery. But even after the back surgery over a year ago she still had persistent intermittent pain and it does seem to occur after eating. She did report an episode of nausea and vomiting yesterday when she had her cardiac issues. Patient also had been reporting some chest pain and EKG changes. Patient seen evaluated by cardiology and they are planning heart catheterization today. Patient did have a CT scan abdomen and pelvis that had reported a punctate hyperdensity at the expected fundus of the gallbladder this is unclear if it is a calcification or surgical clip. Also possibly a bile duct node to be considered dilated if gallbladder surgically absent. Patient's LFTs are normal. She is afebrile. Surgical service consulted regarding the right upper quadrant abdominal pain. PAST MEDICAL HISTORY: See below PAST SURGICAL HISTORY: See below MEDICATIONS: See below ALLERGIES: See below SOCIAL HISTORY: No illicit drug use. Nicotine dependence REVIEW OF SYSTEMS: CONSTITUTIONAL: Denies fever or chills. HEENT: Denies blurred vision, vision changes, or eye pain. Denies hemoptysis CARDIOVASCULAR: Denies chest pain or pressure. RESPIRATORY: No shortness of breath. GASTROINTESTINAL: See HPI for pertinent findings HEMATOLOGIC: Denies bleeding disorders. GENITOURINARY: Denies any blood in urine or increased urinary frequency. SKIN: Denies pruitis. Denies rash. PHYSICAL EXAM: VITAL SIGNS: Reviewed GENERAL: Well-developed in no acute distress. HEENT: No sclera icterus. Extraocular movements grossly intact. Moist buccal mucosa. Head is atraumatic, normocephalic. No nasal drainage. ABDOMEN: Soft. Nondistended. Tenderness palpation right upper quadrant. NEUROLOGIC: Alert and oriented. Cranial nerves II through XII grossly intact. LABORATORY DATA: WBC is 7.6 Hgb 13.5 platelets 222 INR 0.9 Sodium is 139 potassium 3.5 creatinine 0.58 Troponin negative TSH elevated at 16.6 IMAGING: CT scan abdomen pelvis as stated above ASSESSMENT: 1. Chronic intermittent right upper quadrant abdominal pain with prior history of cholecystectomy in October 2022 2. Chest pain with abnormal EKG seen by cardiology 3. Bradycardia PLAN: -No surgical intervention planned -Further recommendations forthcoming per surgeon -Continue cardiac workup -Continue supportive care Physician Floor Care Technician note has been reviewed by physician. Signing provider agrees with the documented findings, assessment, and plan of care. I have personally seen and examined the patient, reviewed the [facility] /PAs history, exam and MDM and agree with the assessment and plan as written. Based on total visit time, I have performed more than 50% of the visit. As above: Patient with intermittent right upper quadrant but also left upper quadrant pain over the last year or so. Patient states when she eats she feels increased discomfort and swelling right upper quadrant. CAT scan noted and reviewed. There is a fluid-filled structure adjacent to the cystic duct region. This may be a choledochal cyst, gallbladder remnant, or dilated bile duct. Recommend MR CP at some point. This could be performed as outpatient. Past Medical History Past Medical History: COPD, GERD/Reflux, Hypertension, Musculoskeletal Disorder, Osteoarthritis (OA) Additional Past Medical History / Comment(s): IBS, INTERSTITIAL CYSTITIS. HIATAL HERNIA, STIFF PERSON SYNDROME., HEART PALPITATIONS, DIVERTICULITIS PER CT, SKIN CANCER., SPINAL STENOSIS, CHRONIC BACK PAIN, DR MONITORING BLOODPRESSURE-NO CURRENT MEDS, LOW BLOOD SUGAR-PT HAS MONITOR, History of Any Multi-Drug Resistant Organisms: None Reported Past Surgical History: Back Surgery, Hysterectomy, Tonsillectomy Additional Past Surgical History / Comment(s): Cystoscopy with Hydrodistension, LYMPH NODES REMOVED RT SIDE NECK, skin ca removal, spinal surgery (February 2022) Past Anesthesia/Blood Transfusion Reactions: Previous Problems w/ Anesthesia, Motion Sickness, Postoperative Nausea & Vomiting (PONV) Additional Past Anesthesia/Blood Transfusion Reaction / Comm: states heart rate dropped with spinal surgery in February 2022., ITCHY FROM SOME ANESTHETIC MEDS. Past Psychological History: No Psychological Hx Reported Smoking Status: Former smoker Past Alcohol Use History: None Reported Past Drug Use History: Marijuana - Past Family History Mother Family Medical History: No Reported History Daughter(s) Family Medical History: Blood Disorder Additional Family Medical History / Comment(s): FACTOR ELEVEN Father Family Medical History: Myocardial Infarction ([place]) Additional Family Medical History / Comment(s): father and his brother have cardiac hx. Medications and Allergies Home Medications Medication Instructions Recorded Confirmed Type Ergocalciferol [Vitamin D2 (1250 1,250 mcg PO WEEKLY 10/12/22 01/09/24 History Mcg = 58786 Iu)] Ibuprofen [Motrin] 800 mg PO Q8H PRN 10/12/22 01/09/24 History tiZANidine [Zanaflex] 4 mg PO TID 10/12/22 01/09/24 History Pantoprazole Sodium [Protonix] 40 mg PO DAILY 01/09/24 01/09/24 History Tab-A-Negro 400mcg 1 tab PO DAILY 01/09/24 01/09/24 History Allergies Allergy/AdvReac Type Severity Reaction Status Date / Time latex Allergy Rash/Hives Verified 01/09/24 07:53 all over arms morphine Allergy Nausea & Verified 01/09/24 10:04 Vomiting nickel Allergy Swelling Verified 01/09/24 07:53 @contact site oxycodone Allergy Rash/Hives Verified 01/09/24 07:53 sulfamethoxazole Allergy Blisters Verified 01/09/24 07:53 [From Bactrim] on hand trimethoprim [From Bactrim] Allergy Blisters Verified 01/09/24 07:53 on hand hydrocodone AdvReac Itching Verified 01/09/24 07:53 metal Allergy Swelling Uncoded 01/09/24 07:53 @contact site Surgical - Exam Vital Signs Temp Pulse Resp BP Pulse Ox 98.4 F 99 18 173/127 93 L 01/09/24 00:27 01/09/24 00:27 01/09/24 00:27 01/09/24 00:27 01/09/24 00:27 Results - Labs 01/09/24 15:18 01/09/24 00:37 Abnormal Lab Results - Last 24 Hours (Table) 01/09/24 Range/Units 00:37 Chloride 111 H (98-107) mmol/L Carbon Dioxide 21 L (22-30) mmol/L Glucose 122 H (74-99) mg/dL Total Protein 6.2 L (6.3-8.2) g/dL TSH 16.600 H (0.465-4.680) mIU/L Diabetes panel 01/09/24 Range/Units 00:37 Sodium 139 (137-145) mmol/L Potassium 3.5 (3.5-5.1) mmol/L Chloride 111 H (98-107) mmol/L Carbon Dioxide 21 L (22-30) mmol/L BUN 10 (7-17) mg/dL Creatinine 0.58 (0.52-1.04) mg/dL Glucose 122 H (74-99) mg/dL Calcium 8.6 (8.4-10.2) mg/dL AST 31 (14-36) U/L ALT 19 (4-34) U/L Alkaline Phosphatase 72 (38-126) U/L Total Protein 6.2 L (6.3-8.2) g/dL Albumin 3.7 (3.5-5.0) g/dL Thyroid panel 01/09/24 Range/Units 00:37 TSH 16.600 H (0.465-4.680) mIU/L Calcium panel 01/09/24 Range/Units 00:37 Calcium 8.6 (8.4-10.2) mg/dL Albumin 3.7 (3.5-5.0) g/dL Pituitary panel 01/09/24 Range/Units 00:37 Sodium 139 (137-145) mmol/L Potassium 3.5 (3.5-5.1) mmol/L Chloride 111 H (98-107) mmol/L Carbon Dioxide 21 L (22-30) mmol/L BUN 10 (7-17) mg/dL Creatinine 0.58 (0.52-1.04) mg/dL Glucose 122 H (74-99) mg/dL Calcium 8.6 (8.4-10.2) mg/dL TSH 16.600 H (0.465-4.680) mIU/L Adrenal panel 01/09/24 Range/Units 00:37 Sodium 139 (137-145) mmol/L Potassium 3.5 (3.5-5.1) mmol/L Chloride 111 H (98-107) mmol/L Carbon Dioxide 21 L (22-30) mmol/L BUN 10 (7-17) mg/dL Creatinine 0.58 (0.52-1.04) mg/dL Glucose 122 H (74-99) mg/dL Calcium 8.6 (8.4-10.2) mg/dL Total Bilirubin 0.3 (0.2-1.3) mg/dL AST 31 (14-36) U/L ALT 19 (4-34) U/L Alkaline Phosphatase 72 (38-126) U/L Total Protein 6.2 L (6.3-8.2) g/dL Albumin 3.7 (3.5-5.0) g/dL
[2024-01-09] MEDS: SODIUM CHLORIDE 0.9% 1,000 ML in EMPTY BAG 1 BAG IV SCH (14:07)
[2024-01-09] MEDS: ASPIRIN 325 MG TAB PO STA (14:47)
--- NOTE | 2024-01-09 14:50 | CC ---
CARDIAC CATHETERIZATION REPORT INDICATIONS: This is a 53-year-old lady who has a strong family history of premature coronary artery disease, who presents to hospital with an episode of near syncope related to bradycardia. Her TSH is elevated but the free T4 is normal. The patient had significant ST-segment depression and she was on sinus rhythm with sinus tachycardia and has symptoms of chest pain and left arm discomfort also. Due to this, I advised her to undergo cardiac catheterization to rule out CAD. She had been explained risks, benefits, and alternatives, understood and accepted. PROCEDURE NOTE: After obtaining informed consent, left heart catheterization and coronary angiogram were performed via the right radial artery using standard Jimmie catheters. The patient tolerated the procedure well without any obvious immediate complications. The patient received moderate conscious sedation. Total sedation time was 25 minutes. Right radial artery access was obtained using Seldinger technique. A 6-Tongan sheath was placed. Catheters and wires were floated into the ascending aorta under fluoroscopic guidance. The patient received verapamil per protocol. She already received heparin bolus in the ER and was then drip stopped almost an hour ago. I will give her an extra 1000 units of heparin. FINDINGS: 1. Hemodynamics: Left ventricular end-diastolic pressure is 20 mm. There is no significant gradient across the aortic valve. 2. Left Ventriculogram: Left ventriculogram is not performed. 3. Angiographic Data: a.Right coronary artery: Right coronary artery is a large dominant vessel and is free of significant stenosis. Left main coronary artery appears mildly calcified but is free of stenosis, divides into left anterior descending coronary artery and circumflex coronary artery. LAD and its branches, circumflex coronary artery and its branches are free of significant stenosis. CONCLUSION: No significant obstructive CAD is noted. PLAN: The patient's chest discomfort is probably noncardiac in origin. We will watch her overnight in telemetry and see whether her bradycardia is vasovagal in origin related to the abdominal pain. She has sick sinus syndrome. If necessary, I will seek EP input. MMODL / IJN: [id number] /
[2024-01-09 15:41] LABS: Basophils # (A) 0.1 k/uL (0-0.2); Basophils % (A) 1 %; Eosinophils # (A) 0.1 k/uL (0-0.7); Eosinophils % (A) 2 %; HCT 41.3 % (34.0-46.0); HGB 13.1 gm/dL (11.4-16.0); Lymphocytes # (A) 1.3 k/uL (1.0-4.8); Lymphocytes % (A) 22 %; MCH 30.1 pg (25.0-35.0); MCHC 31.7 g/dL (31.0-37.0); MCV 94.8 fL (80.0-100.0); Mean Platelet Volume 8.9; Monocytes # (A) 0.4 k/uL (0-1.0); Monocytes % (A) 7 %; Neutrophils % (A) 67 %; Platelet Count 221 k/uL (150-450); RBC 4.36 m/uL (3.80-5.40); RDW 13.1 % (11.5-15.5)
[2024-01-09 15:49] LABS: INR 0.9 (<1.2); Partial Thromboplastin Time 25.1 sec (22.0-30.0); Prothrombin Time 10.3 sec (10.0-12.5)
[2024-01-09] MEDS: tiZANidine 4 MG TAB PO SCH (18:36)
[2024-01-09] MEDS: NITROGLYCERIN SL TABS 0.4 MG TAB SUBLINGUAL PRN (18:37)
[2024-01-09] MEDS: ATORVASTATIN 40 MG TAB PO SCH (20:05)
[2024-01-10] MEDS ORDERED: HEPARIN SODIUM,PORCINE 10,000 UNIT in SODIUM CHLORIDE 0.9% 1,000 ML IRRIGATION PRN (07:00)
[2024-01-10] MEDS ORDERED: HEPARIN SODIUM,PORCINE (1 ML) 2,500 UNIT in SODIUM CHLORIDE 0.9% 250 ML IRRIGATION PRN (07:00)
[2024-01-10 09:32] LABS: Basophils % (A) 1 %; Eosinophils # (A) 0.2 k/uL (0-0.7); Eosinophils % (A) 3 %; HCT 46.6 % (34.0-46.0); HGB 14.7 gm/dL (11.4-16.0); Lymphocytes # (A) 1.4 k/uL (1.0-4.8); Lymphocytes % (A) 26 %; MCH 30.1 pg (25.0-35.0); MCHC 31.6 g/dL (31.0-37.0); Monocytes # (A) 0.3 k/uL (0-1.0); Monocytes % (A) 6 %; Neutrophils # (A) 3.4 k/uL (1.3-7.7); Neutrophils % (A) 64 %; Platelet Count 233 k/uL (150-450); WBC 5.3 k/uL (3.8-10.6)
[2024-01-10 09:46] LABS: INR 0.9 (<1.2); Prothrombin Time 9.8 sec (10.0-12.5)
--- NOTE | 2024-01-10 10:39 | P.PN ---
Subjective Progress Note Date: 01/10/24 Pt still c/o n/v, abd pain in the ruq. LHC was normal last night. Seen by surgery, plan is for MRCP. Gen: In NAD, non-toxic HEENT: normocephalic, atraumatic, hearing acuity is intant, mucous membranes mo ist CVS: perfusing all extremities well, no pitting edema, Respiratory: symmetric chest expansion, no accessory muscle use, GI: soft, NTTP, ND, : no suprapubic tenderness, no CVA tenderness MSK/Derm: no rashes, cyanosis Neuro: CN II-XII intact, no motor weakness, Psych: cooperative, euthymic mood, judgment and insight is intact Hospital course: 53-year-old female with no significant past medical history presented for right upper quadrant abdominal pain that is been going on for couple days. ED staff reported that patient was having some altered mental status at home therefore EMS was notified upon their arrival they found her to be bradycardic for which atropine was given patient continued to have episodes of some bradycardia where she dips down to the 40s in the ER. CT Abd/Pelvis: minimal infiltrate in right posterior medial lung base, punctate hyperdensity at expected fundus of gallbladder. Assessment/plan: Right upper quadrant abdominal pain History of cholecystectomy 1 year ago -Surgery consult appreciated -Pain control with opiates -IV fluid hydration normal saline 75 cc/h -Tylenol for fever -MRCP is pending Sinus bradycardia Rule out underlying cardiac disease Rule out underlying metabolic derangements TSH is elevated 19 await free T4 -Cardiac monitoring -Cardiology consult -Cardiac enzymes increased/peaked at 0.07 -LHC showed clean coronaries Full code DVT prophylaxis heparin subcu 3 times daily GI prophylaxis Protonix 40 mg p.o. daily Objective - Vital Signs Vital signs: Vital Signs Temp 98 F 01/10/24 04:00 Pulse 60 01/10/24 04:00 Resp 16 01/10/24 04:00 BP 132/78 01/10/24 04:00 Pulse Ox 96 01/10/24 04:00 FiO2 Intake & Output 01/09/24 01/10/24 01/10/24 18:59 06:59 18:59 Intake Total 208.227 240 Balance 208.227 240 Weight 79.107 kg 80.6 kg Intake: IV 200 Intake, IV Titration 8.227 Amount Heparin Sod,Pork in 0.45% 8.227 NaCl 25,000 unit In 0.45 % NaCl 1 250ml.bag @ 12 UNITS/KG/HR 9.493 mls/hr IV .Q24H [facility] Rx#: [id number] Oral 240 Other: # Voids 1 - Labs CBC & Chem 7: 01/10/24 08:08 01/09/24 00:37 Labs: Abnormal Lab Results - Last 24 Hours (Table) 01/09/24 01/09/24 01/10/24 Range/Units 15:18 20:00 08:08 Hct 46.6 H (34.0-46.0) % PT (10.0-12.5) sec Troponin I 0.071 H* 0.071 H* (0.000-0.034) ng/mL 01/10/24 Range/Units 08:08 Hct (34.0-46.0) % PT 9.8 L (10.0-12.5) sec Troponin I (0.000-0.034) ng/mL
--- NOTE | 2024-01-10 12:20 | P.PN ---
Subjective HISTORY OF PRESENT ILLNESS: This is a 53-year-old female with a past medical history significant for COPD, GERD, former nicotine dependence. 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 We have been asked to see the patient in consultation for bradycardia. Patient examined at the bedside in the emergency room. Patient states ever since she mckinley d her gallbladder removed she has been having chronic pain in her right upper quadrant. She states yesterday the pain became significantly worse. She states that she had vomited several times. She states that she was diaphoretic. She states that her vision started to become blurred and she felt like she was going to pass out. She also reports that she saw people in her apartment although she knew that she was hallucinating that no one was really there. Patient also reports she has been having discomfort in her chest and left arm down to her fingertips over the past few weeks. Patient states she has smoked a total of 1 pack of cigarettes in the last 6 months. She reports a family history of coronary artery disease and states her mom at the age of 54 from a heart attack and her dad in 2019 from a heart attack. Telemetry tracings from EMS reviewed. Patient did have episodes of bradycardia down into the 30s. She is maintaining sinus mechanism this morning with no significant bradycardia. She currently denies chest pain or pressure. She denies shortness of breath. DIAGNOSTICS: - EKG reveals sinus mechanism with diffuse mild ST depression. Repeat EKGs reveal sinus mechanism with resolution of ST depression - Chest xray bronchitis with pneumonitis and small consolidation at left lung base. -CT abdomen pelvis: Minimal infiltrate posterior medial right lung base. Correlate for atelectasis. Small infectious etiology could be considered. There is a punctate hyperdensity at the expected fundus of the gallbladder. This is unclear whether this is a calcification or surgical clip. - Laboratory data: WBC 7.6. Hemoglobin 13.5. Platelet count 222. Sodium 139. Potassium 3.5. BUN 10. Creatinine 0.58. Magnesium 1.6. Troponin negative x 1. TSH 16.6. Free T41.32. - Current home cardiac medications include none. 01/10/2024 Patient is status postcardiac catheterization revealing no significant CAD. Echocardiogram completed revealing ejection fraction 60 to 65%, trace MR, trace TR. patient examined this morning sitting up in the chair. She denies any chest pain or pressure. She denies dizziness or lightheadedness. She denies any anjel rtness of breath. Vital signs are stable. No further episodes of bradycardia noted. PHYSICAL EXAM: VITAL SIGNS: Reviewed. GENERAL: Well-developed in no acute distress. HEENT: Head is normocephalic. Pupils are equal, round. Sclerae anicteric. Mucous membranes of the mouth are moist. Neck supple. No JVD or thyromegaly LUNGS: Respirations even and unlabored. Lungs essentially clear to auscultation bilaterally. HEART: Regular rate and rhythm. S1 and S2 heard. ABDOMEN: Soft. Nondistended. Nontender. EXTREMITIES: Normal range of motion. No clubbing or cyanosis. Peripheral pulses intact. No lower extremity edema NEUROLOGIC: Awake and alert. Oriented x 3. ASSESSMENT: Symptomatic bradycardia, suspect secondary to vasovagal phenomenon Chest pain with abnormal EKG revealing diffuse ST depression, concerning for CAD, s/p cardiac catheterization revealing no significant CAD Chronic right upper quadrant abdominal pain Status post laparoscopic cholecystectomy 10/2022 Abnormal TSH COPD GERD Former nicotine dependence Family history of coronary artery disease PLAN: Continue current cardiac medications Avoid AV lacie blocking agents Patient has had no further episodes of bradycardia noted on telemetry. Suspect bradycardia was secondary to vasovagal episode. Patient will be discharged home with a 4-week event monitor. If patient is noted to have significant bradycardia or high AV grade block on event monitor, patient will undergo pacemaker implantation Patient is stable for discharge home today from a cardiac standpoint Further recommendations pending patient course Nurse practitioner note has been reviewed by physician. Signing provider agrees with the documented findings, assessment, and plan of care documented by [employer] as a scribe. Objective - Vital Signs Vital signs: Vital Signs Temp 98 F 01/10/24 08:25 Pulse 64 01/10/24 08:25 Resp 16 01/10/24 08:25 BP 161/99 01/10/24 08:25 Pulse Ox 98 01/10/24 08:25 FiO2 Intake & Output 01/09/24 01/10/24 01/10/24 18:59 06:59 18:59 Intake Total 208.227 240 Balance 208.227 240 Weight 79.107 kg 80.6 kg Intake: IV 200 Intake, IV Titration 8.227 Amount Heparin Sod,Pork in 0.45% 8.227 NaCl 25,000 unit In 0.45 % NaCl 1 250ml.bag @ 12 UNITS/KG/HR 9.493 mls/hr IV .Q24H [facility] Rx#: [id number] Oral 240 Other: # Voids 1 - Labs CBC & Chem 7: 01/10/24 08:08 01/09/24 00:37 Labs: Abnormal Lab Results - Last 24 Hours (Table) 01/09/24 01/09/24 01/10/24 Range/Units 15:18 20:00 08:08 Hct 46.6 H (34.0-46.0) % PT (10.0-12.5) sec Troponin I 0.071 H* 0.071 H* (0.000-0.034) ng/mL 01/10/24 Range/Units 08:08 Hct (34.0-46.0) % PT 9.8 L (10.0-12.5) sec Troponin I (0.000-0.034) ng/mL
--- NOTE | 2024-01-10 13:03 | P.PN ---
Subjective Progress Note Date: 01/10/24 CHIEF COMPLAINT: Lightheaded bradycardia HISTORY OF PRESENT ILLNESS: Patient continues to complain of right upper quadrant abdominal pain. She does report having nausea with sweating and feeling cold last night. Patient evaluated by cardiology service heart cath was normal. Cardiology cleared patient for discharge. Patient scheduled for MRCP today. Afebrile. WBC 5.3 Hgb 14.7 bradycardia improved. Cardiology ordered an event monitor PHYSICAL EXAM: VITAL SIGNS: Reviewed. GENERAL: Well-developed in no acute distress. ABDOMEN: Soft. Nondistended. Tenderness to palpation right upper quadrant NEUROLOGIC: Alert and oriented. Cranial nerves II through XII grossly intact. ASSESSMENT: 1. Chronic intermittent right upper quadrant abdominal pain with prior history of cholecystectomy in October 2022 PLAN: -Patient scheduled for MRCP today for further evaluation of fluid-filled structure adjacent to the cystic duct region noted on CT scan. This may be a choledochal cyst, gallbladder remnant, or dilated bile duct. -Continue supportive care Physician Cloth Washer Operator note has been reviewed by physician. Signing provider agrees with the documented findings, assessment, and plan of care. Objective - Vital Signs Vital signs: Vital Signs Temp 98 F 01/10/24 08:25 Pulse 64 01/10/24 08:25 Resp 16 01/10/24 08:25 BP 161/99 01/10/24 08:25 Pulse Ox 98 01/10/24 08:25 FiO2 Intake & Output 01/09/24 01/10/24 01/10/24 18:59 06:59 18:59 Intake Total 208.227 240 Balance 208.227 240 Weight 79.107 kg 80.6 kg Intake: IV 200 Intake, IV Titration 8.227 Amount Heparin Sod,Pork in 0.45% 8.227 NaCl 25,000 unit In 0.45 % NaCl 1 250ml.bag @ 12 UNITS/KG/HR 9.493 mls/hr IV .Q24H [facility] Rx#: [id number] Oral 240 Other: # Voids 1 - Labs CBC & Chem 7: 01/10/24 08:08 01/09/24 00:37 Labs: Abnormal Lab Results - Last 24 Hours (Table) 01/09/24 01/09/24 01/10/24 Range/Units 15:18 20:00 08:08 Hct 46.6 H (34.0-46.0) % PT (10.0-12.5) sec Troponin I 0.071 H* 0.071 H* (0.000-0.034) ng/mL 01/10/24 Range/Units 08:08 Hct (34.0-46.0) % PT 9.8 L (10.0-12.5) sec Troponin I (0.000-0.034) ng/mL
--- NOTE | 2024-01-11 11:42 | P.PN ---
Subjective HISTORY OF PRESENT ILLNESS: This is a 53-year-old female with a past medical history significant for COPD, GERD, former nicotine dependence. 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 We have been asked to see the patient in consultation for bradycardia. Patient examined at the bedside in the emergency room. Patient states ever since she mckinley d her gallbladder removed she has been having chronic pain in her right upper quadrant. She states yesterday the pain became significantly worse. She states that she had vomited several times. She states that she was diaphoretic. She states that her vision started to become blurred and she felt like she was going to pass out. She also reports that she saw people in her apartment although she knew that she was hallucinating that no one was really there. Patient also reports she has been having discomfort in her chest and left arm down to her fingertips over the past few weeks. Patient states she has smoked a total of 1 pack of cigarettes in the last 6 months. She reports a family history of coronary artery disease and states her mom at the age of 54 from a heart attack and her dad in 2019 from a heart attack. Telemetry tracings from EMS reviewed. Patient did have episodes of bradycardia down into the 30s. She is maintaining sinus mechanism this morning with no significant bradycardia. She currently denies chest pain or pressure. She denies shortness of breath. DIAGNOSTICS: - EKG reveals sinus mechanism with diffuse mild ST depression. Repeat EKGs reveal sinus mechanism with resolution of ST depression - Chest xray bronchitis with pneumonitis and small consolidation at left lung base. -CT abdomen pelvis: Minimal infiltrate posterior medial right lung base. Correlate for atelectasis. Small infectious etiology could be considered. There is a punctate hyperdensity at the expected fundus of the gallbladder. This is unclear whether this is a calcification or surgical clip. - Laboratory data: WBC 7.6. Hemoglobin 13.5. Platelet count 222. Sodium 139. Potassium 3.5. BUN 10. Creatinine 0.58. Magnesium 1.6. Troponin negative x 1. TSH 16.6. Free T41.32. - Current home cardiac medications include none. 01/10/2024 Patient is status postcardiac catheterization revealing no significant CAD. Echocardiogram completed revealing ejection fraction 60 to 65%, trace MR, trace TR. patient examined this morning sitting up in the chair. She denies any chest pain or pressure. She denies dizziness or lightheadedness. She denies any anjel rtness of breath. Vital signs are stable. No further episodes of bradycardia noted. 01/11/2024 Patient examined this morning at the bedside. Patient is sitting up in the chair. Patient denies chest pain or pressure. She denies shortness of breath. Patient did have event monitor placed yesterday. She denies any dizziness or lightheadedness. No episodes of syncope since being in the hospital. Telemetry reviewed with no significant bradycardia noted. PHYSICAL EXAM: VITAL SIGNS: Reviewed. GENERAL: Well-developed in no acute distress. HEENT: Head is normocephalic. Pupils are equal, round. Sclerae anicteric. Mucous membranes of the mouth are moist. Neck supple. No JVD or thyromegaly LUNGS: Respirations even and unlabored. Lungs essentially clear to auscultation bilaterally. HEART: Regular rate and rhythm. S1 and S2 heard. ABDOMEN: Soft. Nondistended. Nontender. EXTREMITIES: Normal range of motion. No clubbing or cyanosis. Peripheral pulses intact. No lower extremity edema NEUROLOGIC: Awake and alert. Oriented x 3. ASSESSMENT: Symptomatic bradycardia, suspect secondary to vasovagal phenomenon Chest pain with abnormal EKG revealing diffuse ST depression, concerning for CA D, s/p cardiac catheterization revealing no significant CAD Chronic right upper quadrant abdominal pain Status post laparoscopic cholecystectomy 10/2022 Abnormal TSH COPD GERD Former nicotine dependence Family history of coronary artery disease PLAN: Continue current cardiac medications Avoid AV lacie blocking agents Patient has had no further episodes of bradycardia noted on telemetry. Suspect bradycardia was secondary to vasovagal episode. Patient will be discharged home with a 4-week event monitor. If patient is noted to have significant bradycardia or high AV grade block on event monitor, patient will undergo pacemaker implantation Patient is stable for discharge home today from a cardiac standpoint We will sign off. Please reconsult if needed. Nurse practitioner note has been reviewed by physician. Signing provider agrees with the documented findings, assessment, and plan of care documented by TELECOMMUNICATION OPERATOR as a scribe. Objective - Vital Signs Vital signs: Vital Signs Temp 97.7 F 01/11/24 07:44 Pulse 64 01/11/24 07:44 Resp 16 01/11/24 07:44 BP 130/84 01/11/24 07:44 Pulse Ox 98 01/11/24 07:44 FiO2 Intake & Output 01/10/24 01/11/24 01/11/24 18:59 06:59 18:59 Intake Total 1164 Balance 1164 Intake: Oral 1164 Other: Voiding Method Toilet # Voids 1 - Labs CBC & Chem 7: 01/10/24 08:08 01/09/24 00:37
--- NOTE | 2024-01-11 16:09 | P.PN ---
Subjective patient seen and evaluated at bedside. Minimal abdominal pain no overnight complaints. Objective - Vital Signs Vital signs: Vital Signs Temp 98.3 F 01/11/24 13:23 Pulse 77 01/11/24 13:23 Resp 20 01/11/24 13:23 BP 131/93 01/11/24 13:23 Pulse Ox 98 01/11/24 13:23 FiO2 Intake & Output 01/10/24 01/11/24 01/11/24 18:59 06:59 18:59 Intake Total 1164 Balance 1164 Intake: Oral 1164 Other: Voiding Method Toilet # Voids 1 2 - Exam general no acute distress resting completely Cardiovascular regular rate and rhythm Pulmonary nonlabored breathing Abdomen soft, mildly tender to palpation no guarding rebound tenderness minimal distention - Labs CBC & Chem 7: 01/10/24 08:08 01/09/24 00:37 Assessment and Plan Assessment: Chronic intermittent right upper quadrant abdominal pain with prior history of cholecystectomy in October 2022 PLAN: -Patient scheduled for MRCP for further evaluation of fluid-filled structure adjacent to the cystic duct region noted on CT scan. This may be a choledochal cyst, gallbladder remnant, or dilated bile duct. -Continue supportive care Time with Patient: Greater than 30
--- NOTE | 2024-01-11 16:56 | P.PN ---
Subjective Progress Note Date: 01/11/24 Pending MRI read. Doing well otherwise. Gen: In NAD, non-toxic HEENT: normocephalic, atraumatic, hearing acuity is intant, mucous membranes moist CVS: perfusing all extremities well, no pitting edema, Respiratory: symmetric chest expansion, no accessory muscle use, GI: soft, NTTP, ND, : no suprapubic tenderness, no CVA tenderness MSK/Derm: no rashes, cyanosis Neuro: CN II-XII intact, no motor weakness, Psych: cooperative, euthymic mood, judgment and insight is intact Hospital course: 53-year-old female with no significant past medical history presented for right upper quadrant abdominal pain that is been going on for couple days. ED staff reported that patient was having some altered mental status at home therefore EMS was notified upon their arrival they found her to be bradycardic for which atropine was given patient continued to have episodes of some bradycardia where she dips down to the 40s in the ER. CT Abd/Pelvis: minimal infiltrate in right posterior medial lung base, punctate hyperdensity at expected fundus of gallbladder. Assessment/plan: Right upper quadrant abdominal pain History of cholecystectomy 1 year ago -Surgery consult appreciated -Pain control with opiates -IV fluid hydration normal saline 75 cc/h -Tylenol for fever -MRCP is pending Sinus bradycardia Rule out underlying cardiac disease Rule out underlying metabolic derangements TSH is elevated 19 await free T4 -Cardiac monitoring -Cardiology consult -Cardiac enzymes increased/peaked at 0.07 -LHC showed clean coronaries Full code DVT prophylaxis heparin subcu 3 times daily GI prophylaxis Protonix 40 mg p.o. daily Objective - Vital Signs Vital signs: Vital Signs Temp 98.3 F 01/11/24 13:23 Pulse 77 01/11/24 13:23 Resp 20 01/11/24 13:23 BP 131/93 01/11/24 13:23 Pulse Ox 98 01/11/24 13:23 FiO2 Intake & Output 01/10/24 01/11/24 01/11/24 18:59 06:59 18:59 Intake Total 1164 Balance 1164 Intake: Oral 1164 Other: Voiding Method Toilet # Voids 1 2 - Labs CBC & Chem 7: 01/10/24 08:08 01/09/24 00:37
--- NOTE | 2024-01-11 23:07 | MR ---
EXAMINATION TYPE: MR liver wo/w con and mrcp DATE OF EXAM: 01/11/2024 COMPARISON: Prior CT abdomen and pelvis January 09, 2024 and older CTs HISTORY: choledochal cyst CONTRAST: Standard multiplanar, multisequence MRI departmental protocol images were obtained without contrast a nd with 7.5 mL intravenous Gadobutrol gadolinium contrast. Thin and thick slice MRCP imaging is perf ormed. FINDINGS: Liver/gallbladder/pancreas/biliary system: Liver is normal in size. No concerning mass. No fatty infi ltration. Pancreas is normal in size. No concerning masses present. Rounded structure in the gallblad gabriel fossa is presumed gallbladder. If there is history of gallbladder surgery then retained gallbladd er would be suspected. No internal gallstones are seen. Common bile duct measures up to 10 mm which is mildly dilated. Slight beaded appearance is seen best coronal image 14. There is gradual decrease in size towards the ampulla. No internal stone is seen. No intrahepatic biliary dilatation. Other: Persistent 3.7 x 2.2 cm thin-walled cyst abutting the right heart felt to reflect benign peric ardial cyst. The spleen and both adrenal glands and kidneys appear within normal limits. No abnormal bowel dilatation. Susceptibility artifact from Surgical change at L5 level is noted. No abnormal enha ncement is seen. No AAA. IMPRESSION: Mild extrahepatic biliary dilatation without intrahepatic biliary dilatation with slight focal beaded appearance. No CBD stones.
--- NOTE | 2024-01-12 12:30 | P.PN ---
Subjective Progress Note Date: 01/12/24 Principal diagnosis: Abdominal pain Patient still having episodes of intermittent right upper quadrant pain. MRI of the liver does show possible retained portion of the infundibulum. No choledocholithiasis or obvious choledochal cyst. Patient still states pain is aggravated by eating. Objective - Vital Signs Vital signs: Vital Signs Temp 97.9 F 01/12/24 07:39 Pulse 68 01/12/24 07:39 Resp 18 01/12/24 07:39 BP 125/74 01/12/24 07:39 Pulse Ox 97 01/12/24 07:39 FiO2 Intake & Output 01/11/24 01/12/24 01/12/24 18:59 06:59 18:59 Intake Total 200 Balance 200 Intake: Oral 200 Other: Voiding Method Toilet Toilet # Voids 0 5 # Bowel Movements 0 - Exam Abdomen: Soft, nontender, nondistended - Labs CBC & Chem 7: 01/10/24 08:08 01/09/24 00:37 Assessment and Plan (1) Intractable pain Narrative/Plan: Patient with right upper quadrant pain. Aggravated by eating. Etiology unclear. Certainly given the MRI findings would not think that would be enough to explain the patient's symptoms. Will discuss with Dr. Munson regarding possible upper endoscopy to evaluate for duodenal ulcer. Current Visit: No Status: Acute Code(s): G89.29 - OTHER CHRONIC PAIN SNOMED Code(s): 897577785
--- NOTE | 2024-01-12 13:50 | P.PN ---
Subjective Progress Note Date: 01/12/24 Still having abd pain exacerbated by PO. Surgery considering an EGD. Gen: In NAD, non-toxic HEENT: normocephalic, atraumatic, hearing acuity is intant, mucous membranes moist CVS: perfusing all extremities well, no pitting edema, Respiratory: symmetric chest expansion, no accessory muscle use, GI: soft, NTTP, ND, : no suprapubic tenderness, no CVA tenderness MSK/Derm: no rashes, cyanosis Neuro: CN II-XII intact, no motor weakness, Psych: cooperative, euthymic mood, judgment and insight is intact Hospital course: 53-year-old female with no significant past medical history presented for right upper quadrant abdominal pain that is been going on for couple days. ED staff reported that patient was having some altered mental status at home therefore EMS was notified upon their arrival they found her to be bradycardic for which atropine was given patient continued to have episodes of some bradycardia where she dips down to the 40s in the ER. CT Abd/Pelvis: minimal infiltrate in right posterior medial lung base, punctate hyperdensity at expected fundus of gallbladder. Assessment/plan: Right upper quadrant abdominal pain History of cholecystectomy 1 year ago -Surgery consult appreciated -Pain control with opiates -IV fluid hydration normal saline 75 cc/h -Tylenol for fever -MRCP completed, results reviewed, unlikely to explain pts symptoms Sinus bradycardia Rule out underlying cardiac disease Rule out underlying metabolic derangements TSH is elevated 19 await free T4 -Cardiac monitoring -Cardiology consult -Cardiac enzymes increased/peaked at 0.07 -LHC showed clean coronaries Full code DVT prophylaxis heparin subcu 3 times daily GI prophylaxis Protonix 40 mg p.o. daily Objective - Vital Signs Vital signs: Vital Signs Temp 97.9 F 01/12/24 07:39 Pulse 68 01/12/24 07:39 Resp 18 01/12/24 07:39 BP 125/74 01/12/24 07:39 Pulse Ox 97 01/12/24 07:39 FiO2 Intake & Output 01/11/24 01/12/24 01/12/24 18:59 06:59 18:59 Intake Total 200 Balance 200 Intake: Oral 200 Other: Voiding Method Toilet Toilet # Voids 0 5 # Bowel Movements 0 - Labs CBC & Chem 7: 01/10/24 08:08 01/09/24 00:37
[2024-01-13 14:27] VITALS: BP 150/87; PULSE 72; RESP 17; TEMP 98.2
--- NOTE | 2024-01-13 15:24 | P.PN ---
Subjective Progress Note Date: 01/13/24 CHIEF COMPLAINT: Lightheaded bradycardia HISTORY OF PRESENT ILLNESS: Patient continues to complain of right upper quadrant abdominal pain. Patient does complain of pain after eating and drinking. Afebrile. PHYSICAL EXAM: VITAL SIGNS: Reviewed. GENERAL: Well-developed in no acute distress. ABDOMEN: Soft. Nondistended. Tenderness to palpation right upper quadrant NEUROLOGIC: Alert and oriented. Cranial nerves II through XII grossly intact. ASSESSMENT: 1. Chronic intermittent right upper quadrant abdominal pain with prior history of cholecystectomy in October 2022 PLAN: -Patient scheduled for EGD this , 01/16/[address] Munson to evaluate for possible duodenal ulcer -Continue PPI -Continue supportive care -EGD can be completed outpatient if patient discharged home Physician Landfill Attendant note has been reviewed by physician. Signing provider agrees with the documented findings, assessment, and plan of care. Objective - Vital Signs Vital signs: Vital Signs Temp 98.2 F 01/13/24 13:23 Pulse 72 01/13/24 13:23 Resp 17 01/13/24 13:23 BP 150/87 01/13/24 13:23 Pulse Ox 99 01/13/24 13:23 FiO2 Intake & Output 01/12/24 01/13/24 01/13/24 18:59 06:59 18:59 Other: Voiding Method Toilet Toilet # Voids 3 5 3 - Labs CBC & Chem 7: 01/10/24 08:08 01/09/24 00:37
--- NOTE | 2024-01-13 16:41 | P.DS ---
Providers Date of admission: 01/09/24 03:31 Expected date of discharge: 01/13/24 Attending physician: Suzy Del Rosario MD Consults: 01/09/24 03:30 Consult Physician Routine Consulting Provider: Deven Munson Consult Reason/Comments: chronic recurrent RUQ pain, s/p evens Do you want consulting provider notified?: Yes, Notify in am Primary care physician: Stated None Hospital Course: Right upper quadrant abdominal pain History of cholecystectomy 1 year ago Sinus bradycardia Gen: In NAD, non-toxic HEENT: normocephalic, atraumatic, hearing acuity is intant, mucous membranes moist CVS: perfusing all extremities well, no pitting edema, Respiratory: symmetric chest expansion, no accessory muscle use, GI: soft, NTTP, ND, : no suprapubic tenderness, no CVA tenderness MSK/Derm: no rashes, cyanosis Neuro: CN II-XII intact, no motor weakness, Psych: cooperative, euthymic mood, judgment and insight is intact Hospital course: 53-year-old female with no significant past medical history presented for right upper quadrant abdominal pain that is been going on for couple days. ED staff reported that patient was having some altered mental status at home therefore EMS was notified upon their arrival they found her to be bradycardic for which atropine was given patient continued to have episodes of some bradycardia where she dips down to the 40s in the ER. CT Abd/Pelvis: minimal infiltrate in right posterior medial lung base, punctate hyperdensity at expected fundus of gallbladder. MR Abd: mild extrahepatic biliary dilation with slight focal beaded appearance. Echo: EF 55%, no WMA. LHC: no CAD, clean coronaries Surgery and cardiology consulted on case. Cardiology cleared pt with event monitor. Surgery rec outpatient EGD to r/o duodenal ulcer. Pt d/c'd home with no ASA due to negative LHC. Atorvastatin 10mg HS was prescribed per cardiology recommendation. Pt to f/u with PCP, cardiology. I spent 34 minutes coordinating this discharge on 01/12 Patient Condition at Discharge: Good Plan - Discharge Summary Discharge Rx Participant: Yes New Discharge Prescriptions: New Acetaminophen Tab [Tylenol] 650 mg PO Q6H tab Atorvastatin [Lipitor] 10 mg PO HS #30 tab Pantoprazole [Protonix] 40 mg PO BID #60 tab Continue tiZANidine [Zanaflex] 4 mg PO TID Tab-A-Negro 400mcg 1 tab PO DAILY Ergocalciferol [Vitamin D2 (1250 Mcg = 63622 Iu)] 1,250 mcg PO WEEKLY Discontinued Ibuprofen [Motrin] 800 mg PO Q8H PRN PRN Reason: Pain Pantoprazole Sodium [Protonix] 40 mg PO DAILY Discharge Medication List Ergocalciferol [Vitamin D2 (1250 Mcg = 85347 Iu)] 1,250 mcg PO WEEKLY 10/12/22 [History] tiZANidine [Zanaflex] 4 mg PO TID 10/12/22 [History] Tab-A-Negro 400mcg 1 tab PO DAILY 01/09/24 [History] Acetaminophen Tab [Tylenol] 650 mg PO Q6H tab 01/13/24 [Rx] Atorvastatin [Lipitor] 10 mg PO HS #30 tab 01/13/24 [Rx] Pantoprazole [Protonix] 40 mg PO BID #60 tab 01/13/24 [Rx] Follow up Appointment(s)/Referral(s): Amisha Vila NPC [STAFF PHYSICIAN] - 1-2 Days Lucio Ley MD [STAFF PHYSICIAN] - 6 Weeks Patient Instructions/Handouts: Acute Abdominal Pain (DC), Upper Endoscopy (DC) Activity/Diet/Wound Care/Special Instructions: Scheduled EGD on 01/15/23. Discharge Disposition: HOME SELF-CARE
== END 2024-01-13 16:59 | disposition home or self-care (01) | DRG 192 ==
LOC: EC 00:25 → 3SCARD 03:30 → OBSVTOIN 03:31 → 3SCARD 12:39 → 4SSUR 01-11 20:32
PROVIDERS: ADMIT Internal Medicine; ATTEND Internal Medicine
PROC: B2111ZZ Fluoroscopy of Multiple Coronary Arteries using Low Osmolar Contrast (ICD-10-PCS; 2024-01-09)
PROC: 4A023N7 Measurement of Cardiac Sampling and Pressure, Left Heart, Percutaneous Approach (ICD-10-PCS; principal; 2024-01-09 19:05)
DX: I49.5 Sick sinus syndrome (principal); J44.9 Chronic obstructive pulmonary disease, unspecified; I10 Essential (primary) hypertension; G89.29 Other chronic pain; K91.89 Other postprocedural complications and disorders of digestive system; J98.4 Other disorders of lung; R44.1 Visual hallucinations; Z90.49 Acquired absence of other specified parts of digestive tract; Z79.1 Long term (current) use of non-steroidal anti-inflammatories (NSAID); Z79.899 Other long term (current) drug therapy; Z85.828 Personal history of other malignant neoplasm of skin; Z91.040 Latex allergy status; Z91.048 Other nonmedicinal substance allergy status; Z88.5 Allergy status to narcotic agent; Z88.2 Allergy status to sulfonamides; Z87.891 Personal history of nicotine dependence; Z82.49 Family history of ischemic heart disease and other diseases of the circulatory system
CPT/HCPCS: 36415; 71046; 74177; 74183; 80053; 83690; 83735; 83880; 84439; 84443; 84481; 84484; 85025; 85610; 85730; 93005; 93270; 93306; 93458; 96361; 96365; 99291

== ENCOUNTER 2024-01-16 09:26 | Day surgery (SDC) | payer OTHER ==
[2024-01-15 14:39] VITALS: BMI 30.9
[2024-01-16] MEDS: LACTATED RINGERS 1,000 ML IV ONE (10:20)
[2024-01-16 10:33] LABS: Glucose,Whole Blood 101 mg/dL (70-110)
[2024-01-16 10:51] VITALS: RESP 16; TEMP 97.5
[2024-01-16] MEDS ORDERED: LIDOCAINE 1% INJ 10MG/ML (20 ML MDV) ONE (11:00)
[2024-01-16] MEDS ORDERED: PROPOFOL 10 MG/ML 20 ML VIAL IV ONE (11:00)
--- NOTE | 2024-01-16 11:05 | P.GSHP ---
History of Present Illness H&P Date: 01/16/24 Chief Complaint: epigastric pain this a 51-year-old female who has complaints of epigastric pain. Patient presents today for EGD. Past Medical History Past Medical History: Cancer, COPD, GERD/Reflux, Hyperlipidemia, Hypertension, Musculoskeletal Disorder, Osteoarthritis (OA) Additional Past Medical History / Comment(s): RECENT ADMIT -01/13/24 FOR BRADYCARDIA, SKIN CANCER. IBS, INTERSTITIAL CYSTITIS. HIATAL HERNIA, STIFF PERSON SYNDROME., HEART PALPITATIONS, DIVERTICULITIS PER CT, SKIN CANCER., SPINAL STENOSIS, CHRONIC BACK PAIN, DR MONITORING BLOOD PRESSURE-NO CURRENT MEDS, LOW BLOOD SUGAR-PT HAS MONITOR, History of Any Multi-Drug Resistant Organisms: None Reported Past Surgical History: Back Surgery, Hysterectomy, Tonsillectomy Additional Past Surgical History / Comment(s): Cystoscopy with Hydrodistension, LYMPH NODES REMOVED RT SIDE NECK, skin ca removal, spinal surgery (February 2022) Past Anesthesia/Blood Transfusion Reactions: Previous Problems w/ Anesthesia, Motion Sickness, Postoperative Nausea & Vomiting (PONV) Additional Past Anesthesia/Blood Transfusion Reaction / Comment(s): states heart rate dropped with spinal surgery in February 2022., ITCHY FROM SOME ANESTHETIC MEDS. Smoking Status: Former smoker - Past Family History Mother Family Medical History: No Reported History Daughter(s) Family Medical History: Blood Disorder Additional Family Medical History / Comment(s): FACTOR ELEVEN Father Family Medical History: Myocardial Infarction ([place]) Additional Family Medical History / Comment(s): father and his brother have cardiac hx. Medications and Allergies Home Medications Medication Instructions Recorded Confirmed Type Ergocalciferol [Vitamin D2 (1250 1,250 mcg PO DILLON 10/12/22 01/15/24 History Mcg = 66418 Iu)] tiZANidine [Zanaflex] 4 mg PO TID 10/12/22 01/15/24 History Tab-A-Negro 400mcg 1 tab PO DAILY 01/09/24 01/15/24 History Atorvastatin [Lipitor] 10 mg PO HS #30 tab 01/13/24 01/15/24 Rx Pantoprazole [Protonix] 40 mg PO BID #60 tab 01/13/24 01/15/24 Rx Aspirin [Adult Low Dose Aspirin EC] 81 mg PO ONCE 01/16/24 01/16/24 History Allergies Allergy/AdvReac Type Severity Reaction Status Date / Time latex Allergy Rash/Hives Verified 01/16/24 10:22 all over arms morphine Allergy Nausea & Verified 01/16/24 10:22 Vomiting nickel Allergy Swelling Verified 01/16/24 10:22 @contact site oxycodone Allergy Rash/Hives Verified 01/16/24 10:22 sulfamethoxazole Allergy Blisters Verified 01/16/24 10:22 [From Bactrim] on hand trimethoprim [From Bactrim] Allergy Blisters Verified 01/16/24 10:22 on hand hydrocodone AdvReac Itching Verified 01/16/24 10:22 metal Allergy Swelling Uncoded 01/16/24 10:22 @contact site Surgical - Exam Vital Signs Temp Pulse Resp BP Pulse Ox 97.5 F L 60 16 138/64 98 01/16/24 10:25 01/16/24 10:25 01/16/24 10:25 01/16/24 10:25 01/16/24 10:25 - General well developed, well nourished, no distress - Eyes PERRL - ENT normal pinna - Neck no masses - Respiratory normal expansion - Cardiovascular Rhythm: regular - Abdomen Abdomen: soft, non tender Assessment and Plan Assessment: the gastric pain. We'll perform EGD tonight for possible gastritis.
--- NOTE | 2024-01-16 11:11 | P.OP ---
Date of Procedure: 01/16/24 Preoperative Diagnosis: epigastric abdominal pain Postoperative Diagnosis: antral gastritis with minimal ulceration Moderate size hiatal hernia Procedure(s) Performed: EGD Anesthesia: MAC Surgeon: Deven Munson Pathology: other (antrum) Condition: stable Disposition: PACU Description of Procedure: the patient's placed on the endoscopy table in the lateral position. She received IV sedation. The gastro-/oropharynx passed in the esophagus and stomach. Scope was placed through the pylorus. The first and second portion of the duodenum appeared normal. Scope summer back the antrum this appeared inflamed. There was some minimal ulceration. A biopsies performed. The scope was unretroflexed and remainder the stomach appeared normal. The patient had a moderate size hiatal hernia. The GE junction was at 38 cm. The distal esophagus appeared normal. The proximal esophagus appeared normal. Scope withdrawn for patient.
[2024-01-16 11:34] VITALS: BP 119/87; PULSE 68
== END 2024-01-16 11:57 | disposition home or self-care (01) ==
LOC: ORWHC2ENDO 09:26
PROVIDERS: ATTEND Surgery
DX: K29.50 Unspecified chronic gastritis without bleeding (principal); K44.9 Diaphragmatic hernia without obstruction or gangrene; K25.9 Gastric ulcer, unspecified as acute or chronic, without hemorrhage or perforation; J44.9 Chronic obstructive pulmonary disease, unspecified; I10 Essential (primary) hypertension; E78.5 Hyperlipidemia, unspecified; K21.9 Gastro-esophageal reflux disease without esophagitis; M19.90 Unspecified osteoarthritis, unspecified site; N30.10 Interstitial cystitis (chronic) without hematuria; G89.29 Other chronic pain; Z85.828 Personal history of other malignant neoplasm of skin; Z90.710 Acquired absence of both cervix and uterus; Z90.89 Acquired absence of other organs; Z87.891 Personal history of nicotine dependence; Z82.49 Family history of ischemic heart disease and other diseases of the circulatory system; Z79.82 Long term (current) use of aspirin; Z91.040 Latex allergy status; Z88.2 Allergy status to sulfonamides; Z88.1 Allergy status to other antibiotic agents; Z88.5 Allergy status to narcotic agent
CPT/HCPCS: 88305; 88342; 43239; J2001; J2704